=== PATIENT | female | born 1945 | race Caucasian/White ===

== ENCOUNTER 2020-04-08 11:05 | Outpatient (REF) | payer MEDICARE, SELFPAY ==
--- NOTE | 2020-04-08 11:10 | MM_ITS ---
EXAMINATION: MM SCREENING DIGITAL BREAST TOMOSYNTHESIS, BILATERAL CLINICAL INFORMATION: Screening. Asymptomatic. The lifetime risk of breast cancer based on the Tyrer-Cuzick Model is 4%. COMPARISON: Mammography: 09/20/2018, 09/13/2017, 06/24/2016 TECHNIQUE: Digital breast tomosynthesis is performed in both the craniocaudal and mediolateral oblique views along with computer-aided detection (CAD). Synthesized 2D images are generated from the tomosynthesis. FINDINGS: There are scattered areas of fibroglandular density (ACR BI-RADS breast composition Category b). There are no significant masses, abnormal calcifications, or other abnormalities. No developing density. Axillary nodes left prominent. The skin contours are smooth. MM/MM tomosynthesis screening BI IMPRESSION: No mammographic evidence of malignancy. ASSESSMENT: BI-RADS 2: Benign the RECOMMENDATION: Routine annual mammography screening. This patient's information was entered into a reminder system with a target due date for their next mammogram.
== END 2020-04-08 11:06 | disposition home or self-care (01) ==
LOC: HO.MAMMO 11:05
PROVIDERS: PCP Internal Medicine; Visit Provider Internal Medicine
DX: Z12.31 Encounter for screening mammogram for malignant neoplasm of breast (principal)
CPT/HCPCS: 77063; 77067

== ENCOUNTER 2020-05-23 09:31 | Outpatient (REF) | payer MEDICARE, SELFPAY ==
[2020-05-23 11:18] LABS: MANUAL DIFF FLAG NO
[2020-05-23 11:31] LABS: Basophils Absolute Auto 0.1 X10*3/uL (0.0-0.2); Basophils Percent Auto 0.7 % (0-2); Eosinophils Percent Auto 0.5 % (0-4); Hematocrit 41.1 % (37-47); Hemoglobin 13.8 g/dl (12.0-16.0); Imm Gran Abs Auto 0.03 X10*3/uL (0.00-0.03); Imm Gran Pct Auto 0.4 % (0.0-0.4); Lymphocytes Absolute Auto 2.5 X10*3/uL (1.2-4.9); Lymphocytes Percent Auto 32.6 % (20-40); Mean Corpuscular HGB Conc 33.6 g/dl (31.0-35.0); Mean Corpuscular Hemoglobin 30.2 pg (27.0-33.0); Mean Corpuscular Volume 89.9 fL (80-98); Mean Platelet Volume 10.5 fL (9.4-12.3); Monocytes Absolute Auto 0.6 X10*3/uL (0.1-1.2); Monocytes Percent Auto 8.3 % (2-11); Neutrophils Absolute Auto 4.4 X10*3/uL (2.0-8.3); Neutrophils Percent Auto 57.5 % (45-73); Platelet Count 276 X10*3/uL (160-400); Red Blood Count 4.57 X10*6/uL (4.20-5.50); Red Cell Distribution Width 13.1 % (11.0-16.0); White Blood Count 7.7 X10*3/uL (4.8-10.8)
[2020-05-23 12:08] LABS: Alanine Aminotransferase 13 U/L (0-31); Albumin Level 4.4 g/dL (3.5-5.0); Alkaline Phosphatase 77 U/L (39-117); Anion Gap 13 (12-20); Aspartate Amino Transferase 15 U/L (5-31); Bilirubin Total 0.6 mg/dL (0.0-1.0); Blood Urea Nitrogen 12 mg/dL (9-16); Calcium 9.3 mg/dL (8.4-10.2); Carbon Dioxide 25 mmol/L (22-29); Chloride 106 mmol/L (96-108); Estimated Glomerular Filt Rate > 60; Glucose Random 89 mg/dL (60-115); Potassium 4.3 mmol/l (3.3-5.1); Sodium 140 mmol/L (135-145); Total Protein 7.2 g/dL (6.5-8.0)
== END 2020-05-23 09:32 | disposition home or self-care (01) ==
LOC: HO.LAB 09:31
PROVIDERS: PCP Internal Medicine; Visit Provider Internal Medicine
DX: E78.2 Mixed hyperlipidemia (principal); G44.209 Tension-type headache, unspecified, not intractable; H81.12 Benign paroxysmal vertigo, left ear; M06.9 Rheumatoid arthritis, unspecified; Z68.29 Body mass index [BMI] 29.0-29.9, adult
CPT/HCPCS: 36415; 80053; 85025

== ENCOUNTER 2020-05-28 16:30 | Outpatient (REF) | payer MEDICARE, SELFPAY | END 2020-05-28 16:31 | disposition home or self-care (01) | LOC: HO.WFDLNP 16:30 | PROVIDERS: Visit Provider Internal Medicine | DX: Z20.822 Contact with and (suspected) exposure to COVID-19 (principal) | CPT/HCPCS: C9803; U0003 ==

== ENCOUNTER 2020-10-18 15:19 | Outpatient (REF) | payer MEDICARE, MEDICAID, SELFPAY ==
--- NOTE | ~2020-10-18 | XR_ITS ---
EXAMINATION: XR WRIST, RIGHT CLINICAL INFORMATION: Rheumatoid arthritis COMPARISON: 07/01/2016 TECHNIQUE: PA, lateral, and oblique views of the right wrist. FINDINGS: Again seen is severe arthritic changes with marked joint space narrowing throughout the carpus along with narrowing of the radiocarpal joint. Marked erosive changes are present in the distal ulna. When comparison is made to the 07/01/2016 study, there has been some mild progression of disease. Visualized MCP joints appear unremarkable. No fractures are seen. XR/XR wrist RT 2V IMPRESSION: Severe arthritic changes in the wrist slightly worse when compared to the 2017 consistent with rheumatoid arthritis.
== END 2020-10-18 15:20 | disposition home or self-care (01) ==
LOC: HO.XRAY 15:19
PROVIDERS: PCP Internal Medicine; Visit Provider Student in an Organized Health Care Education/Training Program
DX: M06.00 Rheumatoid arthritis without rheumatoid factor, unspecified site (principal); F17.210 Nicotine dependence, cigarettes, uncomplicated; Z79.899 Other long term (current) drug therapy
CPT/HCPCS: 73100; 99212

== ENCOUNTER 2020-10-21 12:15 | Outpatient (REF) | payer MEDICARE, MEDICAID, SELFPAY ==
[2020-10-21 13:01] LABS: MANUAL DIFF FLAG NO
[2020-10-21 13:06] LABS: Basophils Percent Auto 0.2 % (0-2); Eosinophils Percent Auto 0.4 % (0-4); Hematocrit 40.6 % (37-47); Hemoglobin 13.6 g/dl (12.0-16.0); Imm Gran Abs Auto 0.03 X10*3/uL (0.00-0.03); Imm Gran Pct Auto 0.4 % (0.0-0.4); Lymphocytes Percent Auto 23.7 % (20-40); Mean Corpuscular HGB Conc 33.5 g/dl (31.0-35.0); Mean Corpuscular Hemoglobin 30.2 pg (27.0-33.0); Mean Platelet Volume 10.7 fL (9.4-12.3); Monocytes Absolute Auto 0.6 X10*3/uL (0.1-1.2); Monocytes Percent Auto 7.5 % (2-11); Neutrophils Absolute Auto 5.7 X10*3/uL (2.0-8.3); Neutrophils Percent Auto 67.8 % (45-73); Platelet Count 253 X10*3/uL (160-400); Red Blood Count 4.51 X10*6/uL (4.20-5.50); White Blood Count 8.4 X10*3/uL (4.8-10.8)
[2020-10-21 13:40] LABS: HDL Cholesterol 55 mg/dL
[2020-10-21 13:43] LABS: Anion Gap 13 (12-20); C Reactive Protein 0.19 mg/dL (< or = 0.50); HDL Cholesterol 55 mg/dL
[2020-10-21 13:47] LABS: Erythrocyte Sedimentation Rate 2 MM/HR (0-20)
[2020-10-21 13:56] LABS: Alanine Aminotransferase 10 U/L (0-31); Albumin Level 4.5 g/dL (3.5-5.0); Alkaline Phosphatase 69 U/L (39-117); Aspartate Amino Transferase 14 U/L (5-31); Bilirubin Total 0.6 mg/dL (0.0-1.0); Blood Urea Nitrogen 11 mg/dL (9-16); Calcium 9.7 mg/dL (8.4-10.2); Carbon Dioxide 24 mmol/L (22-29); Chloride 108 mmol/L (96-108); Cholesterol 149 mg/dL; Estimated Glomerular Filt Rate > 60; Glucose Random 90 mg/dL (60-115); LDL Cholesterol Calculated 51 mg/dl; Potassium 4.2 mmol/L (3.3-5.1); Sodium 141 mmol/L (135-145); Total Protein 7.1 g/dL (6.5-8.0); Triglycerides 215 mg/dL
[2020-10-21 14:12] LABS: Reflex LDLD? No
[2020-10-22 04:01] LABS: HBS Num1 165.24 mIU/mL (0-7.99); ~Hepatitis B Surface Antibody REACTIVE (Nonreactive)
[2020-10-22 04:05] LABS: HBc Num1 0.06 S/CO (0.00-0.79); HBsAGNum1 0.17 S/CO (0.00-0.99); Hepatitis B Core Antibody Nonreactive (Nonreactive); Hepatitis B Surface Antigen Negative (Negative); ~HepC Num1 0.09 S/CO (0.00-0.79); ~Hepatitis C Antibody Nonreactive (Nonreactive)
[2020-10-23 07:28] LABS: Hepatitis A Antibody IgM 0.26 Index (0-0.79); ~Hepatitis A Antibody IgM Nonreactive (Nonreactive)
[2020-10-23 21:12] LABS: TS Negative Control Passed; TS Panel A 0; TS Panel B 0; TS Positive Control Passed; TSpotTB Negative (SeeBelow)
== END 2020-10-21 12:16 | disposition home or self-care (01) ==
LOC: HO.LAB 12:15
PROVIDERS: Absent Provider Internal Medicine; PCP Internal Medicine; Visit Provider Student in an Organized Health Care Education/Training Program
DX: M06.00 Rheumatoid arthritis without rheumatoid factor, unspecified site (principal); M94.0 Chondrocostal junction syndrome [Tietze]; E78.00 Pure hypercholesterolemia, unspecified; Z68.27 Body mass index [BMI] 27.0-27.9, adult; Z11.1 Encounter for screening for respiratory tuberculosis
CPT/HCPCS: 36415; 80053; 80061; 85025; 85652; 86140; 86481; 86704; 86706; 86709; 86803; 87340

== ENCOUNTER 2020-10-23 08:49 | Outpatient (REF) | payer MEDICARE, MEDICAID, SELFPAY | END 2020-10-23 08:50 | disposition home or self-care (01) | LOC: HO.LAB 08:49 | PROVIDERS: Visit Provider Internal Medicine | DX: Z20.822 Contact with and (suspected) exposure to COVID-19 (principal) | CPT/HCPCS: C9803; U0003; U0005 ==

== ENCOUNTER 2020-12-25 09:28 | Outpatient (REF) | payer MEDICARE, MEDICAID, SELFPAY ==
[2020-12-25 10:09] LABS: MANUAL DIFF FLAG NO
[2020-12-25 10:17] LABS: Basophils Percent Auto 0.7 % (0-2); Eosinophils Absolute Auto 0.1 X10*3/uL (0.0-0.4); Eosinophils Percent Auto 1.3 % (0-4); Hematocrit 40.7 % (37-47); Hemoglobin 13.5 g/dl (12.0-16.0); Imm Gran Abs Auto 0.02 X10*3/uL (0.00-0.03); Imm Gran Pct Auto 0.3 % (0.0-0.4); Lymphocytes Absolute Auto 2.5 X10*3/uL (1.2-4.9); Lymphocytes Percent Auto 41.4 % (20-40); Mean Corpuscular HGB Conc 33.2 g/dl (31.0-35.0); Mean Corpuscular Hemoglobin 29.7 pg (27.0-33.0); Mean Corpuscular Volume 89.6 fL (80-98); Mean Platelet Volume 10.8 fL (9.4-12.3); Monocytes Absolute Auto 0.5 X10*3/uL (0.1-1.2); Monocytes Percent Auto 7.5 % (2-11); Neutrophils Percent Auto 48.8 % (45-73); Platelet Count 251 X10*3/uL (160-400); Red Blood Count 4.54 X10*6/uL (4.20-5.50); Red Cell Distribution Width 13.1 % (11.0-16.0); White Blood Count 6.1 X10*3/uL (4.8-10.8)
[2020-12-25 11:24] LABS: Alanine Aminotransferase 15 U/L (0-31); Albumin Level 4.3 g/dL (3.5-5.0); Alkaline Phosphatase 65 U/L (39-117); Anion Gap 15 (12-20); Aspartate Amino Transferase 16 U/L (5-31); Bilirubin Total 0.6 mg/dL (0.0-1.0); Blood Urea Nitrogen 11 mg/dL (9-16); Calcium 9.3 mg/dL (8.4-10.2); Carbon Dioxide 21 mmol/L (22-29); Chloride 107 mmol/L (96-108); Cholesterol 153 mg/dL; Estimated Glomerular Filt Rate > 60; Glucose Random 113 mg/dL (60-115); HDL Cholesterol 55 mg/dL; LDL Cholesterol Calculated 73 mg/dl; Potassium 3.9 mmol/L (3.3-5.1); Sodium 139 mmol/L (135-145); Triglycerides 128 mg/dL
[2020-12-25 13:47] LABS: Reflex LDLD? No
== END 2020-12-25 09:29 | disposition home or self-care (01) ==
LOC: HO.LAB 09:28
PROVIDERS: PCP Internal Medicine; Visit Provider Student in an Organized Health Care Education/Training Program
DX: M06.00 Rheumatoid arthritis without rheumatoid factor, unspecified site (principal)
CPT/HCPCS: 36415; 80053; 80061; 85025

== ENCOUNTER 2021-01-08 10:23 | Outpatient (REF) | payer MEDICARE, MEDICAID, SELFPAY ==
[2021-01-08 12:15] LABS: C Reactive Protein 0.24 mg/dL (< or = 0.50)
[2021-01-08 13:11] LABS: Erythrocyte Sedimentation Rate 2 MM/HR (0-20)
== END 2021-01-08 10:24 | disposition home or self-care (01) ==
LOC: HO.LAB 10:23
PROVIDERS: PCP Internal Medicine; Visit Provider Nurse Practitioner Family
DX: M06.00 Rheumatoid arthritis without rheumatoid factor, unspecified site (principal)
CPT/HCPCS: 36415; 85652; 86140; 99212

== ENCOUNTER 2021-03-10 10:45 | Outpatient (REF) | payer MEDICARE, MEDICAID, SELFPAY ==
--- NOTE | ~2021-03-10 | XR_ITS ---
EXAMINATION: XR LUMBOSACRAL SPINE CLINICAL INFORMATION: Rheumatoid arthritis. COMPARISON: Lumbar spine radiographs dated 03/11/2015. TECHNIQUE: 3 views of the lumbosacral spine. FINDINGS: Normal vertebral body alignment. The lumbar lordosis is maintained. No acute fracture or subluxation. No loss of vertebral body height. Loss of intervertebral disc height with anterior endplate osteophytes throughout the lumbar spine. Bilateral facet arthropathy at L5-S1. No lytic or blastic osseous lesion. No abnormal soft tissue calcification. XR/XR lumbar spine 2-3V IMPRESSION: Mild degenerative disc disease throughout the lumbar spine, slightly progressed when compared to the prior examination. Bilateral facet arthropathy at L5-S1, progressed.
[2021-03-10 11:46] LABS: MANUAL DIFF FLAG NO
[2021-03-10 12:10] LABS: Basophils Percent Auto 0.3 % (0-2); Eosinophils Percent Auto 0.3 % (0-4); Hematocrit 38.5 % (37.0-47.0); Hemoglobin 12.9 g/dl (12.0-16.0); Imm Gran Abs Auto 0.02 X10*3/uL (0.00-0.03); Imm Gran Pct Auto 0.3 % (0.0-0.4); Lymphocytes Absolute Auto 1.9 X10*3/uL (1.2-4.9); Lymphocytes Percent Auto 30.2 % (20-40); Mean Corpuscular HGB Conc 33.5 g/dl (31.0-35.0); Mean Corpuscular Volume 89.5 fL (80.0-98.0); Mean Platelet Volume 10.6 fL (9.4-12.3); Monocytes Absolute Auto 0.7 X10*3/uL (0.1-1.2); Monocytes Percent Auto 10.3 % (2-11); Neutrophils Absolute Auto 3.76 x10*3/uL (2.0-8.3); Neutrophils Percent Auto 58.6 % (45-73); Platelet Count 232 X10*3/uL (160-400); Red Cell Distribution Width 13.2 % (11.0-16.0); White Blood Count 6.4 X10*3/uL (4.8-10.8)
[2021-03-10 12:38] LABS: Alanine Aminotransferase 12 U/L (0-31); Albumin Level 4.3 g/dL (3.5-5.0); Alkaline Phosphatase 69 U/L (39-117); Anion Gap 12 (12-20); Aspartate Amino Transferase 25 U/L (5-31); Bilirubin Total 0.7 mg/dL (0.0-1.0); Blood Urea Nitrogen 10 mg/dL (9-16); C Reactive Protein 0.79 mg/dL (< or = 0.50); Calcium 9.4 mg/dL (8.4-10.2); Carbon Dioxide 23 mmol/L (22-29); Chloride 109 mmol/L (96-108); Estimated Glomerular Filt Rate > 60; Glucose Random 93 mg/dL (60-115); Sodium 140 mmol/L (135-145); Total Protein 6.9 g/dL (6.5-8.0)
[2021-03-10 12:54] LABS: Erythrocyte Sedimentation Rate 5 MM/HR (0-20)
== END 2021-03-10 10:46 | disposition home or self-care (01) ==
LOC: HO.XRAY 10:45
PROVIDERS: PCP Internal Medicine; Visit Provider Nurse Practitioner Family
DX: M06.00 Rheumatoid arthritis without rheumatoid factor, unspecified site (principal)
CPT/HCPCS: 36415; 72100; 80053; 85025; 85652; 86140; 99212

== ENCOUNTER 2021-04-24 13:30 | Outpatient (RCR) | payer MEDICARE, MEDICAID, SELFPAY ==
--- NOTE | 2021-04-24 14:57 | MHC.OT.DC ---
[address] [phone] F: [phone] Occupational Therapy Discharge Note Provider: NIKOLAS Fontaine Diagnosis: Right hand pain due to RA Date of Evaluation: 03/26/21 Date of Discharge: 04/24/21 Treatments to Date: 4 Discharge Status: Achieved Goals Independent with HEP Discharge Summary: Hernia has been seen in OT for hand and wrist pain related to rheumatoid arthritis. She reports relief with daytime and nighttime orthosis wear, but has not been able to wear our custom resting wrist orthosis at nighttime due to ridigity, but has been educated on pre-candelario options. She still occasionally has high pain, but no significant redness or edema noted in hand or wrist, pain mostly localized to ulnar wrist. She has good follow through w/ HEP and protection, with overall improving ROM. Electronically Signed By: Kecia Candelaria OTR/L CHT Reviewed/agree with student documentation: N/A Therapist: Please Sign and return to therapist, thank you for your referral.
== END 2021-04-24 14:58 | disposition home or self-care (01) ==
LOC: HO.OT 13:30
PROVIDERS: PCP Internal Medicine; Visit Provider Nurse Practitioner Family
DX: M79.641 Pain in right hand (principal)
CPT/HCPCS: 29125; 97110; 97165; 97760

== ENCOUNTER 2021-05-01 15:23 | Outpatient (REF) | payer MEDICARE, MEDICAID, SELFPAY ==
--- NOTE | ~2021-05-01 | MM_ITS ---
EXAMINATION: MM SCREENING DIGITAL BREAST TOMOSYNTHESIS, BILATERAL CLINICAL INFORMATION: Screening. Asymptomatic. The lifetime risk of breast cancer based on the Tyrer-Cuzick Model is 3%. COMPARISON: Mammography: 04/08/2020, 09/20/2018, 09/13/2017 TECHNIQUE: Digital breast tomosynthesis is performed in both the craniocaudal and mediolateral oblique views along with computer-aided detection (CAD). Synthesized 2D images are generated from the tomosynthesis. FINDINGS: There are scattered areas of fibroglandular density (ACR BI-RADS breast composition Category b). There are no significant masses, abnormal calcifications, or other abnormalities. Parenchymal pattern is similar to prior studies. There is no developing density. The axilla and skin contours are unremarkable. MM/MM tomosynthesis screening BI IMPRESSION: No mammographic evidence of malignancy. ASSESSMENT: BI-RADS 1: Negative RECOMMENDATION: Routine annual mammography screening. This patient's information was entered into a reminder system with a target due date for their next mammogram.
== END 2021-05-01 15:24 | disposition home or self-care (01) ==
LOC: HO.MAMMO 15:23
PROVIDERS: Visit Provider Internal Medicine
DX: Z12.31 Encounter for screening mammogram for malignant neoplasm of breast (principal)
CPT/HCPCS: 77063; 77067

== ENCOUNTER 2021-05-08 12:29 | Outpatient (REF) | payer MEDICARE, MEDICAID, SELFPAY | END 2021-05-08 12:30 | disposition home or self-care (01) | LOC: HO.WFDLDS 12:29 | PROVIDERS: Visit Provider Internal Medicine | DX: Z20.822 Contact with and (suspected) exposure to COVID-19 (principal) | CPT/HCPCS: C9803; U0003; U0005 ==

== ENCOUNTER 2021-06-02 10:58 | Outpatient (REF) | payer MEDICARE, MEDICAID, SELFPAY ==
[2021-06-02 11:25] LABS: MANUAL DIFF FLAG NO
[2021-06-02 11:48] LABS: Basophils Percent Auto 0.5 % (0-2); Eosinophils Percent Auto 0.5 % (0-4); Hematocrit 42.4 % (37.0-47.0); Imm Gran Abs Auto 0.04 X10*3/uL (0.00-0.03); Imm Gran Pct Auto 0.5 % (0.0-0.4); Lymphocytes Absolute Auto 2.5 X10*3/uL (1.2-4.9); Lymphocytes Percent Auto 29.2 % (20-40); Mean Corpuscular Hemoglobin 29.8 pg (27.0-33.0); Mean Corpuscular Volume 90.2 fL (80.0-98.0); Mean Platelet Volume 10.7 fL (9.4-12.3); Monocytes Absolute Auto 0.7 X10*3/uL (0.1-1.2); Monocytes Percent Auto 8.5 % (2-11); Neutrophils Absolute Auto 5.2 x10*3/uL (2.0-8.3); Neutrophils Percent Auto 60.8 % (45-73); Platelet Count 251 X10*3/uL (160-400); Red Cell Distribution Width 12.9 % (11.0-16.0); White Blood Count 8.6 X10*3/uL (4.8-10.8)
[2021-06-02 12:24] LABS: Alanine Aminotransferase 12 U/L (0-31); Albumin Level 4.2 g/dL (3.5-5.0); Alkaline Phosphatase 74 U/L (39-117); Anion Gap 11 (12-20); Aspartate Amino Transferase 16 U/L (5-31); Bilirubin Total 0.7 mg/dL (0.0-1.0); Blood Urea Nitrogen 13 mg/dL (9-16); C Reactive Protein 0.39 mg/dL (< or = 0.50); Calcium 9.9 mg/dL (8.4-10.2); Carbon Dioxide 26 mmol/L (22-29); Chloride 106 mmol/L (96-108); Cholesterol 229 mg/dL; Estimated Glomerular Filt Rate > 60; Glucose Random 98 mg/dL (60-115); HDL Cholesterol 52 mg/dL; LDL Cholesterol Calculated 146 mg/dl; Sodium 139 mmol/L (135-145); Total Protein 7.1 g/dL (6.5-8.0); Triglycerides 159 mg/dL
[2021-06-02 12:27] LABS: Erythrocyte Sedimentation Rate 4 MM/HR (0-20); Reflex LDLD? No
== END 2021-06-02 10:59 | disposition home or self-care (01) ==
LOC: HO.LAB 10:58
PROVIDERS: Absent Provider Internal Medicine; PCP Internal Medicine; Visit Provider Nurse Practitioner Family
DX: M06.00 Rheumatoid arthritis without rheumatoid factor, unspecified site (principal)
CPT/HCPCS: 36415; 80053; 80061; 85025; 85652; 86140

== ENCOUNTER → 2021-06-10 12:22 | Outpatient (BNVA) | payer MEDICARE, MEDICAID, SELFPAY | PROVIDERS: PCP Internal Medicine; Visit Provider Nurse Practitioner Family | DX: M06.00 Rheumatoid arthritis without rheumatoid factor, unspecified site (principal) | CPT/HCPCS: 99212 ==

== ENCOUNTER 2021-08-14 13:17 | Outpatient (REF) | payer MEDICARE, MEDICAID, SELFPAY ==
[2021-08-14 13:35] LABS: MANUAL DIFF FLAG NO
[2021-08-14 13:55] LABS: Basophils Absolute Auto 0.1 X10*3/uL (0.0-0.2); Basophils Percent Auto 0.7 % (0-2); Eosinophils Percent Auto 0.3 % (0-4); Hemoglobin 13.6 g/dl (12.0-16.0); Imm Gran Abs Auto 0.03 X10*3/uL (0.00-0.03); Imm Gran Pct Auto 0.4 % (0.0-0.4); Lymphocytes Absolute Auto 2.1 X10*3/uL (1.2-4.9); Lymphocytes Percent Auto 27.2 % (20-40); Mean Corpuscular HGB Conc 33.2 g/dl (31.0-35.0); Mean Corpuscular Hemoglobin 29.8 pg (27.0-33.0); Mean Corpuscular Volume 89.7 fL (80.0-98.0); Mean Platelet Volume 10.7 fL (9.4-12.3); Monocytes Absolute Auto 0.6 X10*3/uL (0.1-1.2); Monocytes Percent Auto 7.8 % (2-11); Neutrophils Absolute Auto 4.9 x10*3/uL (2.0-8.3); Neutrophils Percent Auto 63.6 % (45-73); Platelet Count 254 X10*3/uL (160-400); Red Blood Count 4.57 X10*6/uL (4.20-5.50); Red Cell Distribution Width 13.2 % (11.0-16.0); White Blood Count 7.7 X10*3/uL (4.8-10.8)
[2021-08-14 14:09] LABS: Alanine Aminotransferase 13 U/L (0-31); Albumin Level 4.4 g/dL (3.5-5.0); Alkaline Phosphatase 70 U/L (39-117); Anion Gap 12 (12-20); Aspartate Amino Transferase 14 U/L (5-31); Bilirubin Total 0.7 mg/dL (0.0-1.0); Blood Urea Nitrogen 11 mg/dL (9-16); Calcium 9.7 mg/dL (8.4-10.2); Carbon Dioxide 24 mmol/L (22-29); Chloride 107 mmol/L (96-108); Cholesterol 142 mg/dL; Estimated Glomerular Filt Rate > 60; Glucose Random 100 mg/dL (60-115); HDL Cholesterol 55 mg/dL; LDL Cholesterol Calculated 62 mg/dl; Potassium 4.2 mmol/L (3.3-5.1); Sodium 139 mmol/L (135-145); Total Protein 7.2 g/dL (6.5-8.0); Triglycerides 129 mg/dL
[2021-08-14 14:29] LABS: Thyroid Stimulating Hormone 1.22 uIU/mL (0.32-4.0)
== END 2021-08-14 13:18 | disposition home or self-care (01) ==
LOC: HO.LAB 13:17
PROVIDERS: PCP Internal Medicine; Visit Provider Internal Medicine
DX: Z00.00 Encounter for general adult medical examination without abnormal findings (principal); F33.41 Major depressive disorder, recurrent, in partial remission; M06.9 Rheumatoid arthritis, unspecified
CPT/HCPCS: 36415; 80053; 80061; 84443; 85025

== ENCOUNTER 2021-09-25 10:19 | Outpatient (REF) | payer OTHER, SELFPAY ==
[2021-09-25 13:01] LABS: C Reactive Protein 0.42 mg/dL (< or = 0.50)
[2021-09-25 13:20] LABS: Erythrocyte Sedimentation Rate 5 MM/HR (0-20)
== END 2021-09-25 10:20 | disposition home or self-care (01) ==
LOC: HO.LAB 10:19
PROVIDERS: PCP Internal Medicine; Visit Provider Nurse Practitioner Family
DX: M06.00 Rheumatoid arthritis without rheumatoid factor, unspecified site (principal); M25.562 Pain in left knee; M54.50 Low back pain, unspecified
CPT/HCPCS: 36415; 85652; 86140; 99212

== ENCOUNTER 2021-09-26 09:54 | Outpatient (REF) | payer OTHER, SELFPAY ==
--- NOTE | ~2021-09-26 | XR_ITS ---
EXAMINATION: XR KNEE, LEFT CLINICAL INFORMATION: Left knee pain COMPARISON: None TECHNIQUE: 3 views of the left knee. FINDINGS: There is significant narrowing of medial compartment of left knee joint with marginal spurring and varus deformity of the knee. There is patellofemoral compartment spurring without joint effusion. XR/XR knee LT 3V IMPRESSION: Changes of osteoarthritis most prominent in the medial compartment of left knee joint
== END 2021-09-26 09:55 | disposition home or self-care (01) ==
LOC: HO.XRAY 09:54
PROVIDERS: PCP Internal Medicine; Visit Provider Nurse Practitioner Family
DX: M25.562 Pain in left knee (principal)
CPT/HCPCS: 73562

== ENCOUNTER 2021-10-15 09:12 | Outpatient (REF) | payer OTHER, SELFPAY ==
[2021-10-15 09:20] LABS: MANUAL DIFF FLAG NO
[2021-10-15 09:38] LABS: Basophils Percent Auto 0.4 % (0-2); Eosinophils Absolute Auto 0.1 X10*3/uL (0.0-0.4); Eosinophils Percent Auto 0.7 % (0-4); Hematocrit 40.7 % (37.0-47.0); Hemoglobin 13.3 g/dl (12.0-16.0); Imm Gran Abs Auto 0.02 X10*3/uL (0.00-0.03); Imm Gran Pct Auto 0.3 % (0.0-0.4); Lymphocytes Absolute Auto 2.2 X10*3/uL (1.2-4.9); Lymphocytes Percent Auto 31.5 % (20-40); Mean Corpuscular HGB Conc 32.7 g/dl (31.0-35.0); Mean Corpuscular Hemoglobin 29.4 pg (27.0-33.0); Mean Platelet Volume 10.1 fL (9.4-12.3); Monocytes Absolute Auto 0.7 X10*3/uL (0.1-1.2); Monocytes Percent Auto 9.6 % (2-11); Neutrophils Percent Auto 57.5 % (45-73); Platelet Count 275 X10*3/uL (160-400); Red Blood Count 4.52 X10*6/uL (4.20-5.50); Red Cell Distribution Width 13.3 % (11.0-16.0); White Blood Count 6.9 X10*3/uL (4.8-10.8)
[2021-10-15 10:16] LABS: Alanine Aminotransferase 12 U/L (0-31); Albumin Level 4.3 g/dL (3.5-5.0); Alkaline Phosphatase 78 U/L (39-117); Anion Gap 11 (12-20); Aspartate Amino Transferase 15 U/L (5-31); Bilirubin Total 0.5 mg/dL (0.0-1.0); Blood Urea Nitrogen 17 mg/dL (9-16); Calcium 9.4 mg/dL (8.4-10.2); Carbon Dioxide 27 mmol/L (22-29); Chloride 106 mmol/L (96-108); Cholesterol 178 mg/dL; Estimated Glomerular Filt Rate > 60; Glucose Random 95 mg/dL (60-115); HDL Cholesterol 56 mg/dL; LDL Cholesterol Calculated 101 mg/dl; Potassium 4.2 mmol/L (3.3-5.1); Sodium 140 mmol/L (135-145); Total Protein 7.1 g/dL (6.5-8.0); Triglycerides 105 mg/dL
== END 2021-10-15 09:13 | disposition home or self-care (01) ==
LOC: HO.LAB 09:12
PROVIDERS: PCP Internal Medicine; Visit Provider Internal Medicine
DX: E78.00 Pure hypercholesterolemia, unspecified (principal); H81.10 Benign paroxysmal vertigo, unspecified ear; K62.89 Other specified diseases of anus and rectum; M06.9 Rheumatoid arthritis, unspecified; M67.814 Other specified disorders of tendon, left shoulder
CPT/HCPCS: 36415; 80053; 80061; 85025

== ENCOUNTER → 2021-11-05 14:17 | Outpatient (BNVA) | payer OTHER, MEDICAID, SELFPAY | PROVIDERS: PCP Internal Medicine; Visit Provider Nurse Practitioner Family | DX: R10.9 Unspecified abdominal pain (principal); R19.7 Diarrhea, unspecified; E55.9 Vitamin D deficiency, unspecified | CPT/HCPCS: 99202 ==

== ENCOUNTER 2021-11-06 10:51 | Outpatient (REF) | payer OTHER, SELFPAY ==
[2021-11-06 11:58] LABS: Lipase 22 U/L (8-78)
[2021-11-06 12:43] LABS: Folate > 20.0 ng/mL (> or = 4.0); Vitamin B12 325 pg/mL (200-900)
[2021-11-08 08:27] LABS: Transglutaminase Ab IgG <1.0 U/mL; Transglutaminase IgA <1.0 U/mL
[2021-11-08 14:17] LABS: Immunoglobulin A 260 mg/dL (70-320)
[2021-11-10 16:16] LABS: Vitamin D 25-OH, D2 <4 ng/mL; Vitamin D 25-OH, D3 27 ng/mL; Vitamin D 25-OH, Total 27 ng/mL (30-100)
== END 2021-11-06 10:52 | disposition home or self-care (01) ==
LOC: HO.LAB 10:51
PROVIDERS: PCP Internal Medicine; Visit Provider Nurse Practitioner Family
DX: R10.9 Unspecified abdominal pain (principal); R19.7 Diarrhea, unspecified; E55.9 Vitamin D deficiency, unspecified
CPT/HCPCS: 36415; 82306; 82607; 82746; 82784; 83690; 86364

== ENCOUNTER 2021-11-20 10:00 | Outpatient (RCR) | payer OTHER, MEDICAID, SELFPAY ==
--- NOTE | 2021-10-27 11:47 | MHC.PT.EP ---
[facility] [place] Office [place] Office [place] Office [address] Terry Muhammad [address] [phone] F: [phone] F: [phone] F: [phone] F: [phone] Physical Therapy Plan of Care Date of Evaluation: Date of Surgery: N/A Diagnosis: rotator cuff tendinitis L shoulder, back pain (RC) Assessment: pt presents to physical therapy with pain, decreased range of motion, decreased strength, impaired functional mobility, impaired postural awareness, and gait deviations. pt is a good candidate for skilled PT due to age, potential remediation of impairments, typical disease/condition progression and prognosis, comorbidities, and motivation. pt would benefit from tailored strengthening and stretching exercise program, functional training, gait training, postural re-training, neuromuscular re-education, modalities as needed for pain, equipment safety demonstration. Frequency and Duration: The patient will be seen 2x/wk for 3 wks Short Term Goals: pt will be I w/ HEP to promote self-management of condition. pt will improve L shoulder flexion by 15 degrees to promote ease in reaching for objects on higher shelves. Wrapping Checker Goals: pt will improve L shoulder flexion and abduction strength by 1 MMT grade to promote ease in lifting arm for upper body ADLs. pt will improve L shoulder functional ER ROM to at least C4 to promote ease in washing/combing hair. Treatment Plan: Modalities to reduce pain, spasms and effusion. Manual therapy to restore motion and function. Therapeutic exercise to improve strength and flexibility. Neuromuscular re-education for posture and balance. Therapeutic activities to return to functional activities of daily living. Electronically signed by: Lucia Lemus PT, DPT Please sign and return to therapist. Thank you for your referral.
--- NOTE | 2021-11-20 10:27 | MHC.PT.DC ---
[facility] [place] Office [place] Office [place] Office [address] Terry Muhammad 140 [facility] [phone] F: [phone] F: [phone] F: [phone] F: [phone] Physical Therapy Discharge Report Diagnosis: rotator cuff tendinitis L shoulder, back pain (RC) Date of Surgery: N/A Date of Evaluation: 10/27/21 Date of Discharge: Treatments to Date: 7 Cancellations to Date: 0 No Shows to Date: 0 Discharge Status: Discharge Summary: The patient was reporting some delayed onset muscle soreness after last visit so only a stretching and ROM program was performed today with good tolerance. She overall has been reporting little to no pain or discomfort otherwise. She is independent with her home exercise program including cervical stretching, shoulder ROM, and postural strengthening. She is discharged from this physical therapy plan of care to her [facility]. Electronically signed by: Please sign and return to therapist. Thank you for your referral.
--- NOTE | 2021-11-20 10:28 | MHC.PT.DC ---
[facility] [place] Office [place] Office [place] Office [address] Terry Muhammad 140 [facility] [phone] F: [phone] F: [phone] F: [phone] F: [phone] Physical Therapy Discharge Report Diagnosis: rotator cuff tendinitis L shoulder, back pain (RC) Date of Surgery: N/A Date of Evaluation: 10/27/21 Date of Discharge: 11/20/21 Treatments to Date: 7 Cancellations to Date: 0 No Shows to Date: 0 Discharge Status: Improved Function Independent with HEP Discharge Summary: The patient was reporting some delayed onset muscle soreness after last visit so only a stretching and ROM program was performed today with good tolerance. She overall has been reporting little to no pain or discomfort otherwise. She is independent with her home exercise program including cervical stretching, shoulder ROM, and postural strengthening. She is discharged from this physical therapy plan of care to her HEP. Electronically signed by: Lucia Lemus PT, DPT Please sign and return to therapist. Thank you for your referral.
== END 2021-11-20 10:28 | disposition home or self-care (01) ==
LOC: HO.PT 10:00
PROVIDERS: PCP Internal Medicine; Visit Provider Internal Medicine
DX: M25.512 Pain in left shoulder (principal); M54.9 Dorsalgia, unspecified
CPT/HCPCS: 97110; 97150; 97161

== ENCOUNTER 2022-01-05 11:55 | Outpatient (REF) | payer OTHER, SELFPAY ==
--- NOTE | ~2022-01-05 | XR_ITS ---
EXAMINATION: XR HAND, RIGHT CLINICAL INFORMATION: Rheumatoid arthritis COMPARISON: Prior study 2017 TECHNIQUE: Frontal lateral obliques views of the hand were obtained. FINDINGS: Redemonstration of the loss of joint spaces especially involving the intercarpal, carpometacarpal and radiocarpal joints, there are subarticular and marginal erosions, this is compatible with patient history of rheumatoid arthritis, there has been progression compared with the prior exam from 2017. The metacarpophalangeal and interphalangeal joints are relatively spared. XR/XR hand wrist RT IMPRESSION: Progression of patient's known rheumatoid arthritis of primarily involving the carpal levels.
--- NOTE | ~2022-01-05 | XR_ITS ---
EXAMINATION: XR CHEST CLINICAL INFORMATION: Pneumonia COMPARISON: None TECHNIQUE: 2 views of the chest were obtained. FINDINGS: No significant abnormality is noted involving the heart, lungs, mediastinum, bony thorax or soft tissues. XR/XR chest 2V IMPRESSION: No radiographic evidence of lobar consolidation pneumonia.
--- NOTE | ~2022-01-05 | XR_ITS ---
EXAMINATION: XR HAND, LEFT CLINICAL INFORMATION: Rheumatoid arthritis COMPARISON: Prior study 2017 TECHNIQUE: Frontal lateral oblique views of the hand were obtained. FINDINGS: Redemonstration of the intercarpal, radiocarpal and carpometacarpal joint narrowing, compatible with patient history of rheumatoid arthritis, this has slightly progressed from prior exam of 2017. Metacarpophalangeal and interphalangeal joints are relatively spared. XR/XR hand wrist LT IMPRESSION: Mild progression of carpal arthritis compatible with patient history of rheumatoid.
[2022-01-05 12:41] LABS: MANUAL DIFF FLAG NO
[2022-01-05 12:47] LABS: Basophils Absolute Auto 0.1 X10*3/uL (0.0-0.2); Basophils Percent Auto 0.6 % (0-2); Eosinophils Percent Auto 0.4 % (0-4); Hemoglobin 13.9 g/dl (12.0-16.0); Imm Gran Abs Auto 0.02 X10*3/uL (0.00-0.03); Imm Gran Pct Auto 0.3 % (0.0-0.4); Lymphocytes Absolute Auto 2.5 X10*3/uL (1.2-4.9); Lymphocytes Percent Auto 31.3 % (20-40); Mean Corpuscular HGB Conc 33.1 g/dl (31.0-35.0); Mean Corpuscular Volume 87.7 fL (80.0-98.0); Mean Platelet Volume 10.3 fL (9.4-12.3); Monocytes Absolute Auto 0.7 X10*3/uL (0.1-1.2); Monocytes Percent Auto 8.8 % (2-11); Neutrophils Absolute Auto 4.6 x10*3/uL (2.0-8.3); Neutrophils Percent Auto 58.6 % (45-73); Platelet Count 255 X10*3/uL (160-400); Red Blood Count 4.79 X10*6/uL (4.20-5.50); White Blood Count 7.8 X10*3/uL (4.8-10.8)
[2022-01-05 13:21] LABS: Alanine Aminotransferase 13 U/L (0-31); Albumin Level 4.5 g/dL (3.5-5.0); Alkaline Phosphatase 75 U/L (39-117); Anion Gap 15 (12-20); Aspartate Amino Transferase 15 U/L (5-31); Bilirubin Total 0.5 mg/dL (0.0-1.0); Blood Urea Nitrogen 13 mg/dL (9-16); Calcium 9.6 mg/dL (8.4-10.2); Carbon Dioxide 25 mmol/L (22-29); Chloride 105 mmol/L (96-108); Estimated Glomerular Filt Rate > 60; Glucose Random 97 mg/dL (60-115); Potassium 4.3 mmol/L (3.3-5.1); Sodium 141 mmol/L (135-145); Total Protein 7.4 g/dL (6.5-8.0)
[2022-01-05 13:25] LABS: Erythrocyte Sedimentation Rate 3 MM/HR (0-20)
== END 2022-01-05 11:56 | disposition home or self-care (01) ==
LOC: HO.LAB 11:55
PROVIDERS: PCP Internal Medicine; Visit Provider Nurse Practitioner Family
DX: M06.00 Rheumatoid arthritis without rheumatoid factor, unspecified site (principal); R07.81 Pleurodynia; M54.50 Low back pain, unspecified; M25.562 Pain in left knee
CPT/HCPCS: 36415; 71046; 73110; 73130; 80053; 85025; 85652; 86140; 99212

== ENCOUNTER → 2022-01-07 14:50 | Outpatient (BNVA) | payer OTHER, SELFPAY | PROVIDERS: PCP Internal Medicine; Visit Provider Nurse Practitioner Family | DX: Z01.818 Encounter for other preprocedural examination (principal); R10.9 Unspecified abdominal pain | CPT/HCPCS: 99212 ==

== ENCOUNTER 2022-04-06 09:15 | Outpatient (REF) | payer OTHER, SELFPAY ==
[2022-04-06 11:16] LABS: MANUAL DIFF FLAG NO
[2022-04-06 11:36] LABS: Basophils Percent Auto 0.6 % (0-2); Eosinophils Absolute Auto 0.1 X10*3/uL (0.0-0.4); Eosinophils Percent Auto 1.1 % (0-4); Hematocrit 42.6 % (37.0-47.0); Imm Gran Abs Auto 0.03 X10*3/uL (0.00-0.03); Imm Gran Pct Auto 0.5 % (0.0-0.4); Lymphocytes Absolute Auto 2.4 X10*3/uL (1.2-4.9); Mean Corpuscular HGB Conc 32.9 g/dl (31.0-35.0); Mean Corpuscular Hemoglobin 29.4 pg (27.0-33.0); Mean Corpuscular Volume 89.5 fL (80.0-98.0); Mean Platelet Volume 10.5 fL (9.4-12.3); Monocytes Absolute Auto 0.6 X10*3/uL (0.1-1.2); Monocytes Percent Auto 8.6 % (2-11); Neutrophils Absolute Auto 3.3 x10*3/uL (2.0-8.3); Neutrophils Percent Auto 51.2 % (45-73); Platelet Count 289 X10*3/uL (160-400); Red Blood Count 4.76 X10*6/uL (4.20-5.50); Red Cell Distribution Width 13.2 % (11.0-16.0); White Blood Count 6.4 X10*3/uL (4.8-10.8)
[2022-04-06 12:23] LABS: Alanine Aminotransferase 27 U/L (0-31); Aspartate Amino Transferase 23 U/L (5-31); C Reactive Protein 0.51 mg/dL (< or = 0.50); Estimated Glomerular Filt Rate > 60
[2022-04-06 13:18] LABS: Erythrocyte Sedimentation Rate 5 MM/HR (0-20)
== END 2022-04-06 09:16 | disposition home or self-care (01) ==
LOC: HO.10HDL 09:15
PROVIDERS: Visit Provider Nurse Practitioner Family
DX: M06.00 Rheumatoid arthritis without rheumatoid factor, unspecified site (principal); M25.531 Pain in right wrist; M54.9 Dorsalgia, unspecified; M25.562 Pain in left knee; M85.80 Other specified disorders of bone density and structure, unspecified site; Z79.899 Other long term (current) drug therapy
CPT/HCPCS: 36415; 82565; 84450; 84460; 85025; 85652; 86140; 99212

== ENCOUNTER → 2022-04-13 09:30 | Outpatient (BNVA) | payer OTHER, SELFPAY | PROVIDERS: PCP Internal Medicine; Visit Provider Nurse Practitioner Family | DX: M17.12 Unilateral primary osteoarthritis, left knee (principal) | CPT/HCPCS: 20610 ==

== ENCOUNTER 2022-04-16 10:52 | Outpatient (REF) | payer OTHER, SELFPAY ==
--- NOTE | ~2022-04-16 | MM_ITS ---
EXAMINATION: BONE DENSITOMETRY CLINICAL INDICATION: Other specified disorders of bone density and structure. COMPARISON: Previous BD dated 12/10/2011 and baseline BD dated 05/14/2006. TECHNIQUE: Using a [employer] DXA System (software version: 13.1) manufactured by [employer], dual-energy x-ray absorptiometry was performed of the lumbar spine and left hip. The images are of good technical quality. Summary results are attached. FINDINGS: AP SPINE L1-L4: Current: BMD 1.113 g/cm2, Z-score 0.9, T-score -0.6, normal, 1.0% decrease from previous, 4.1% decrease from baseline (<5% change is not significant). Prior: BMD 1.124 g/cm2. Baseline: BMD 1.161 g/cm2. LEFT FEMUR, NECK: Current: BMD 0.765 g/cm2, Z-score -0.2, T-score -2.0, osteopenia. Prior: BMD 0.851 g/cm2. Baseline: BMD 0.947 g/cm2. LEFT FEMUR, TOTAL: Current: BMD 0.839 g/cm2, Z-score 0.2, T-score -1.3, osteopenia, 12.3% decrease from previous, 18.5% decrease from baseline (<5% change is not significant). Prior: BMD 0.957 g/cm2. Baseline: BMD 1.030 g/cm2. IDENTIFIED RISK FACTORS: Rheumatoid arthritis, height loss, tobacco use (current smoker), thiazide, menopause. HISTORY OF FRACTURE: None listed. MEDICATIONS: Multivitamin/calcium. MM/XR DEXA axial skeleton IMPRESSION: 1. DIAGNOSIS: Osteopenia based on the lowest T-score value of -2.0 in the femoral neck applying World Health Organization criteria. 2. 10-YEAR FRACTURE RISK PREDICTION, FRAX: Major osteoporotic fracture (clinical spine, forearm, hip or shoulder) 10.6%. Hip fracture 4.2%. 3. Treatment Recommendations: NOF guidelines recommend consideration for treatment in postmenopausal women and men age 50 and older presenting with the following: -A hip or vertebral (clinical or morphometric) fracture. -T-score less than or equal to -2.5 at the femoral neck or spine after appropriate evaluation to exclude secondary causes. -Low bone mass at the hip or spine and a 10-year fracture probability by FRAX of greater than or equal to 3% for hip fracture or greater than or equal to 20% for major osteoporotic fracture based on the [place] adapted WHO algorithm. 4. Other Recommendations: All treatment decisions require clinical judgment and consideration of individual patient factors, including patient preferences, comorbidities, previous drug use, risk factors not captured in the FRAX model (e.g. frailty, falls, vitamin D deficiency, increased bone turnover, interval significant decline in bone density) and possible under or overestimation of fracture risk by FRAX. Additional medical evaluation for secondary cause of low bone mineral density may be appropriate. FUTURE SCAN RECOMMENDATION: People with diagnosed cases of osteoporosis or at high risk for fracture should have regular bone mineral density tests. For patients eligible for Medicare, routine testing is allowed once every 2 years. The testing frequency can be increased to one year for patients who have rapidly progressing disease, those who are receiving or discontinuing medical therapy to restore bone mass, or have additional risk factors.
== END 2022-04-16 10:53 | disposition home or self-care (01) ==
LOC: HO.MAMMO 10:52
PROVIDERS: Visit Provider Nurse Practitioner Family
DX: Z13.820 Encounter for screening for osteoporosis (principal); Z78.0 Asymptomatic menopausal state; M85.80 Other specified disorders of bone density and structure, unspecified site
CPT/HCPCS: 77080

== ENCOUNTER 2022-05-19 07:57 | Day surgery (SDC) | payer OTHER, SELFPAY ==
[2022-05-15 11:38] VITALS: BMI 27.6
--- NOTE | 2022-05-18 13:38 | HO.ANESPROP2 ---
Documented by User: Renetta Rasmussen NP 05/18/22 13:39 HPI - Anesthesia Eval Consult details Narrative: 76yo F for Colonoscopy PMFSH Active Problems Active Problems: All Active Problems (Updated 04/13/22 @ 10:19 by Jodee Castillo NP) Osteoarthritis of left knee (Acute) Seronegative rheumatoid arthritis (Acute) Past Medical History Medical History (Updated 05/19/22 @ 09:19 by Adriana Patrick RN) Anxiety Denial Depression Fibrocystic breast disease History of abnormal Pap smear Hyperlipemia Microscopic hematuria Osteoarthritis Osteopenia Panic attack Rheumatoid arthritis Tension headache Family History Family History Mother Rheumatoid arthritis Father CVD (cardiovascular disease) Surgical History Surgical History (Updated 05/19/22 @ 09:20 by Adriana Patrick RN) Hx of colonoscopy Social History Social History Alcohol intake: never Patient Tobacco Use Status: Current someday Tobacco user Cigarettes Per Day: 2 Years Smoked: 30 Use of substances other than those prescribed or required for medical reasons: No Are you DNR?: No Advance Directives: No Advance Directives Information Provided: Yes Meds Allergies Allergy/AdvReac Type Severity Reaction Status Date / Time sarilumab [From Kevzara] Allergy injection Verified 05/19/22 09:26 site reaction tocilizumab [From Actemra] Allergy injection Verified 05/19/22 09:26 site reaction fruits Allergy Mild itchy Uncoded 04/13/22 09:34 mouth and throat Home Medications Medication Instructions Recorded Confirmed Last Taken Type clonazepam 0.5 mg tablet 0.5 mg PO TID 03/10/21 05/19/22 05/19/22 07:30 History multivitamin (Daily Vitamin 1 tab PO DAILY 06/10/21 05/19/22 Unknown History Formula tablet) atorvastatin 10 mg tablet 10 mg PO BEDTIME 06/11/21 05/19/22 Unknown History naproxen 500 mg tablet 500 mg PO BID 06/11/21 05/19/22 Unknown History citalopram 20 mg tablet 20 mg PO DAILY 09/25/21 05/19/22 Unknown History diclofenac sodium 75 mg 75 mg PO BID 04/06/22 05/19/22 Unknown History tablet,delayed release meclizine 12.5 mg tablet 12.5 mg PO QID PRN Dizziness 04/06/22 05/19/22 Unknown History folic acid 1 mg tablet 1 mg PO DAILY 05/19/22 05/19/22 Unknown History Exam Exam Date and Time: May 18, 2022 1338 Height,Weight and Vital Signs: Height 5 ft 3 in Weight 70.76 kg Pertinent Lab Results Pertinent Lab Results: Laboratory Tests 01/05/22 04/06/22 04/06/22 12:40 09:20 09:20 WBC 6.4 Hgb 14.0 Hct 42.6 Plt Count 289 Sodium 141 Potassium 4.3 Chloride 105 Carbon Dioxide 25 BUN 13 Creatinine 0.82 Assessment and Plan Assessment Anesthesia Assessment: Chart Reviewed Documented by User: Brittney Harris MD 05/19/22 10:29 [facility] Past Medical History Medical History (Updated 05/19/22 @ 09:19 by Adriana Patrick RN) Anxiety Denial Depression Fibrocystic breast disease History of abnormal Pap smear Hyperlipemia Microscopic hematuria Osteoarthritis Osteopenia Panic attack Rheumatoid arthritis Tension headache Family History Family History Mother Rheumatoid arthritis Father CVD (cardiovascular disease) Surgical History Surgical History (Updated 05/19/22 @ 09:20 by Adriana Patrick RN) Hx of colonoscopy History of Problems with Anesthesia: No Social History Social History Alcohol intake: never Patient Tobacco Use Status: Current someday Tobacco user Cigarettes Per Day: 2 Years Smoked: 30 Use of substances other than those prescribed or required for medical reasons: No Are you DNR?: No Advance Directives: No Advance Directives Information Provided: Yes Meds Allergies Allergy/AdvReac Type Severity Reaction Status Date / Time sarilumab [From Kevzara] Allergy injection Verified 05/19/22 09:26 site reaction tocilizumab [From Actemra] Allergy injection Verified 05/19/22 09:26 site reaction fruits Allergy Mild itchy Uncoded 04/13/22 09:34 mouth and throat Home Medications Medication Instructions Recorded Confirmed Last Taken Type clonazepam 0.5 mg tablet 0.5 mg PO TID 03/10/21 05/19/22 05/19/22 07:30 History multivitamin (Daily Vitamin 1 tab PO DAILY 06/10/21 05/19/22 Unknown History Formula tablet) atorvastatin 10 mg tablet 10 mg PO BEDTIME 06/11/21 05/19/22 Unknown History naproxen 500 mg tablet 500 mg PO BID 06/11/21 05/19/22 Unknown History citalopram 20 mg tablet 20 mg PO DAILY 09/25/21 05/19/22 Unknown History diclofenac sodium 75 mg 75 mg PO BID 04/06/22 05/19/22 Unknown History tablet,delayed release meclizine 12.5 mg tablet 12.5 mg PO QID PRN Dizziness 04/06/22 05/19/22 Unknown History folic acid 1 mg tablet 1 mg PO DAILY 05/19/22 05/19/22 Unknown History Exam Airway Mallampati Class: II TM Dist: >3cm Neck ROM: Full Loose/Missing/Broken Teeth: Yes and Lower (B = Broken; M = Missing; L = Loose; C = Cap) Heart: rrr Lungs: cta Assessment and Plan Final Anesthetic Review History of Problems with Anesthesia: No NPO: Yes ASA Class: III Final Preanesthetic Review: No Changes in Pt Med Stat, Meds/Allgs Chart Reviewed, Consent Obtained/Reviewed and Anes Risks/Benef Reviewed Patient Risk: Low Procedure Risk: Low Anesthetic Plan Anesthetic Plan: MAC: and Agree w/ Assess. and Plan Disposition: Standard PACU
[2022-05-19 09:36] VITALS: BP 141/72; PULSE 71; RESP 16; TEMP 36.6; O2SAT 98
--- NOTE | 2022-05-19 09:38 | MHC.SHP ---
Pre-Procedural Eval Section A Date of Service: 05/19/22 Section B Chief Complaint: screening Relevant Family History (Specify if Yes): No Relevant Social History: Tobacco Use Present Medications: see Short Stay Collaborative assessment Medical History: Significant History (Denial Depression Fibrocystic breast disease History of abnormal Pap smear Hyperlipemia Microscopic hematuria Osteoarthritis Osteopenia Rheumatoid arthritis Tension headache) History of Previous Operations: No relevant previous surgery Allergies: Allergies Allergy/AdvReac Type Severity Reaction Status Date / Time sarilumab [From Kevzara] Allergy injection Verified 05/19/22 09:26 site reaction tocilizumab [From Actemra] Allergy injection Verified 05/19/22 09:26 site reaction fruits Allergy Mild itchy Uncoded 04/13/22 09:34 mouth and throat Review of Systems Sugical H&P ROS: Negative: Constitution, Cardiovascular, Respiratory, Neurological, Psychiatric, Hem-Onc, Allergic/Immunologic, Gastrointestinal, Genitourinary, Musculoskeletal, Integumentary, Endocrine and Eyes/Ears/Nose/Throat Exam Surgical H&P Exam: Normal: HEENT, Normal: Heart, Normal: Lungs, Normal: Extremities, Normal: Abdomen, Normal: Skin and Normal: Neurological Plan Diagnosis/Plan: Unchanged I have reviewed the history and physical and performed a pertinent physical examination on my patient. No changes have occurred unless specified. Time Spent With Patient Time: Total time managing care of this patient today ____ minutes.
[2022-05-19] MEDS: Lactated Ringers 1,000 ML 100 ML IVCONT (09:46)
--- NOTE | 2022-05-19 10:14 | P.OP_ITS ---
Operative Note Operative Note Date of Service: 05/19/22 Narrative: Operative Information Procedure Description: Colonoscopy Indication: screening Anesthesia: MAC COLONOSCOPY Instrument: Olympus variable stiffness pediatric scope 190L Colonoscopy Monitoring: Vital signs and clinical assessment, continuous EKG monitoring, Pulse oximetry, Carbon Dioxide monitoring and blood pressure monitoring were done throughout the procedure. Colon withdrawal time was 11 minutes. Procedure: The patient was placed in the left lateral decubitis position and pre-procedure medications were administered. After a digital rectal examination of the ano-rectum, the video colonoscope was inserted into the rectum and advanced through the colon to the cecum/TI. The colonoscope was slowly withdrawn in a retrograde panoramic fashion and the colon mucosa was carefully examined including a retroflexed view of the rectum. Findings and interventions are described below. Procedure Difficulty: easy Findings: Terminal Ileum-normal Cecum:normal Ascending Colon: normal Transverse Colon -normal Descending Colon:normal Sigmoid Colon: normal Rectum: Retroflexion with medium sized internal hemorrhoids, grade I Anorectum - normal Colon preparation: [place] Bowel Preparation Scale Right colon; 2 Transverse colon: 2 Left colon; 2 (0 = Unprepared colon segment with mucosa not seen due to solid stool that cannot be cleared. 1 = Portion of mucosa of the colon segment seen, but other areas of the colon segment not well seen due to staining, residual stool and/or opaque liquid. 2 = Minor amount of residual staining, small fragments of stool and/or opaque liquid, but mucosa of colon segment seen well. 3 = Entire mucosa of colon segment seen well with no residual staining, small fragments of stool or opaque liquid) Impression and Post Procedure Diagnosis: internal hemorrhoids Plan: High fiber diet leaflet Avoid straining at stool, epsom salts and sitz bath, anusol supps or cream Repeat Colonoscopy in 10 years if health allows or earlier if clinically indicated Above findings were reviewed with the patient and relevant handouts were provided if indicated.
[2022-05-19 10:59] VITALS: BP 104/51; PULSE 57; RESP 16; TEMP 36.6; O2SAT 98
[2022-05-19 11:14] VITALS: BP 114/57; PULSE 66; RESP 16; O2SAT 97
[2022-05-19 11:30] VITALS: BP 136/70; PULSE 64; RESP 16; TEMP 36.6; O2SAT 97
== END 2022-05-19 12:18 | disposition home or self-care (01) ==
PROVIDERS: PCP Internal Medicine; Visit Provider Internal Medicine Gastroenterology
PROC: 0DJD8ZZ Inspection of Lower Intestinal Tract, Via Natural or Artificial Opening Endoscopic (ICD-10-PCS; CPT 45378; principal; 2022-05-19 10:10)
DX: Z12.11 Encounter for screening for malignant neoplasm of colon (principal); K64.0 First degree hemorrhoids; E78.5 Hyperlipidemia, unspecified; M06.9 Rheumatoid arthritis, unspecified; M85.80 Other specified disorders of bone density and structure, unspecified site; F17.210 Nicotine dependence, cigarettes, uncomplicated; Z79.899 Other long term (current) drug therapy
CPT/HCPCS: G0121

== ENCOUNTER 2022-06-02 09:58 | Outpatient (REF) | payer OTHER, SELFPAY ==
--- NOTE | ~2022-06-02 | MM_ITS ---
EXAMINATION: MM SCREENING DIGITAL BREAST TOMOSYNTHESIS, BILATERAL CLINICAL INFORMATION: Screening. Asymptomatic. The lifetime risk of breast cancer based on the Tyrer-Cuzick Model is 2.9%. COMPARISON: Mammography: May 01, 2021 and studies dating back to April 27, 2014 TECHNIQUE: Digital breast tomosynthesis is performed in both the craniocaudal and mediolateral oblique views along with computer-aided detection (CAD). Synthesized 2D images are generated from the tomosynthesis. FINDINGS: The breasts are heterogeneously dense, which may obscure small masses (ACR BI-RADS breast composition Category c). There are no significant masses, abnormal calcifications, or other abnormalities. MM/MM tomosynthesis screening BI IMPRESSION: No significant changes from prior exam. ASSESSMENT: BI-RADS 1: Negative RECOMMENDATION: Routine annual mammography screening. This patient's information was entered into a reminder system with a target due date for their next mammogram.
== END 2022-06-02 09:59 | disposition home or self-care (01) ==
LOC: HO.MAMMO 09:58
PROVIDERS: PCP Internal Medicine; Visit Provider Internal Medicine
DX: Z12.31 Encounter for screening mammogram for malignant neoplasm of breast (principal); K59.01 Slow transit constipation; Z98.890 Other specified postprocedural states
CPT/HCPCS: 77063; 77067; 99212

== ENCOUNTER → 2022-06-12 07:50 | Outpatient (BNVA) | payer OTHER, SELFPAY | PROVIDERS: PCP Internal Medicine; Visit Provider Nurse Practitioner Family | DX: M06.00 Rheumatoid arthritis without rheumatoid factor, unspecified site (principal); M17.12 Unilateral primary osteoarthritis, left knee; M85.80 Other specified disorders of bone density and structure, unspecified site; Z79.899 Other long term (current) drug therapy | CPT/HCPCS: 99212 ==

== ENCOUNTER 2022-07-08 09:30 | Outpatient (REF) | payer OTHER, SELFPAY ==
[2022-07-08 09:42] LABS: MANUAL DIFF FLAG NO
[2022-07-08 10:45] LABS: Basophils Percent Auto 0.4 % (0-2); Eosinophils Absolute Auto 0.1 X10*3/uL (0.0-0.4); Eosinophils Percent Auto 0.6 % (0-4); Hematocrit 42.3 % (37.0-47.0); Imm Gran Abs Auto 0.03 X10*3/uL (0.00-0.03); Imm Gran Pct Auto 0.4 % (0.0-0.4); Lymphocytes Absolute Auto 2.2 X10*3/uL (1.2-4.9); Mean Corpuscular HGB Conc 33.1 g/dl (31.0-35.0); Mean Corpuscular Hemoglobin 29.2 pg (27.0-33.0); Mean Corpuscular Volume 88.1 fL (80.0-98.0); Mean Platelet Volume 10.7 fL (9.4-12.3); Monocytes Absolute Auto 0.7 X10*3/uL (0.1-1.2); Monocytes Percent Auto 8.4 % (2-11); Neutrophils Absolute Auto 5.1 x10*3/uL (2.0-8.3); Neutrophils Percent Auto 63.2 % (45-73); Platelet Count 284 X10*3/uL (160-400); Red Cell Distribution Width 12.8 % (11.0-16.0)
[2022-07-08 11:22] LABS: Alanine Aminotransferase 10 U/L (0-31); Aspartate Amino Transferase 16 U/L (5-31); C Reactive Protein 0.34 mg/dL (< or = 0.50); Estimated Glomerular Filt Rate > 60
[2022-07-08 11:36] LABS: Erythrocyte Sedimentation Rate 2 MM/HR (0-20)
== END 2022-07-08 09:31 | disposition home or self-care (01) ==
LOC: HO.LAB 09:30
PROVIDERS: PCP Internal Medicine; Visit Provider Nurse Practitioner Family
DX: M06.00 Rheumatoid arthritis without rheumatoid factor, unspecified site (principal); Z79.899 Other long term (current) drug therapy
CPT/HCPCS: 36415; 82565; 84450; 84460; 85025; 85652; 86140

== ENCOUNTER → 2022-07-13 11:01 | Outpatient (BNVA) | payer OTHER, SELFPAY | PROVIDERS: PCP Internal Medicine; Visit Provider Nurse Practitioner Family | DX: M06.00 Rheumatoid arthritis without rheumatoid factor, unspecified site (principal); M85.80 Other specified disorders of bone density and structure, unspecified site; Z79.899 Other long term (current) drug therapy | CPT/HCPCS: 99212 ==

== ENCOUNTER → 2022-08-14 09:23 | Outpatient (BNVA) | payer OTHER, SELFPAY | PROVIDERS: PCP Internal Medicine; Visit Provider Nurse Practitioner Family | DX: M06.00 Rheumatoid arthritis without rheumatoid factor, unspecified site (principal); M85.80 Other specified disorders of bone density and structure, unspecified site | CPT/HCPCS: 99212 ==

== ENCOUNTER 2022-09-07 09:34 | Outpatient (REF) | payer OTHER, SELFPAY ==
[2022-09-07 09:58] LABS: MANUAL DIFF FLAG NO
[2022-09-07 10:40] LABS: Basophils Percent Auto 0.5 % (0-2); Eosinophils Percent Auto 0.3 % (0-4); Hemoglobin 13.6 g/dl (12.0-16.0); Imm Gran Abs Auto 0.03 X10*3/uL (0.00-0.03); Imm Gran Pct Auto 0.3 % (0.0-0.4); Lymphocytes Absolute Auto 2.1 X10*3/uL (1.2-4.9); Lymphocytes Percent Auto 23.7 % (20-40); Mean Corpuscular HGB Conc 33.2 g/dl (31.0-35.0); Mean Corpuscular Hemoglobin 29.3 pg (27.0-33.0); Mean Corpuscular Volume 88.4 fL (80.0-98.0); Mean Platelet Volume 10.5 fL (9.4-12.3); Monocytes Absolute Auto 0.8 X10*3/uL (0.1-1.2); Monocytes Percent Auto 8.8 % (2-11); Neutrophils Absolute Auto 5.9 x10*3/uL (2.0-8.3); Neutrophils Percent Auto 66.4 % (45-73); Platelet Count 263 X10*3/uL (160-400); Red Blood Count 4.64 X10*6/uL (4.20-5.50); Red Cell Distribution Width 13.2 % (11.0-16.0); White Blood Count 8.9 X10*3/uL (4.8-10.8)
[2022-09-07 12:45] LABS: Alanine Aminotransferase 12 U/L (0-31); Albumin Level 4.3 g/dL (3.5-5.0); Alkaline Phosphatase 84 U/L (39-117); Anion Gap 10 (12-20); Aspartate Amino Transferase 15 U/L (5-31); Bilirubin Total 0.7 mg/dL (0.0-1.0); Blood Urea Nitrogen 12 mg/dL (9-16); Calcium 9.7 mg/dL (8.4-10.2); Carbon Dioxide 27 mmol/L (22-29); Chloride 108 mmol/L (96-108); Cholesterol 158 mg/dL; Estimated Glomerular Filt Rate > 60; Glucose Random 92 mg/dL (60-115); HDL Cholesterol 57 mg/dL; LDL Cholesterol Calculated 79 mg/dl; Potassium 4.2 mmol/L (3.3-5.1); Sodium 141 mmol/L (135-145); Total Protein 6.8 g/dL (6.5-8.0); Triglycerides 114 mg/dL
[2022-09-07 13:00] LABS: Thyroid Stimulating Hormone 1.61 uIU/mL (0.32-4.0); Vitamin B12 388 pg/mL (200-900); Vitamin D 25-OH Total 29.7 ng/mL (>30)
== END 2022-09-07 09:35 | disposition home or self-care (01) ==
LOC: HO.LAB 09:34
PROVIDERS: PCP Internal Medicine; Visit Provider Internal Medicine
DX: Z00.00 Encounter for general adult medical examination without abnormal findings (principal); E78.00 Pure hypercholesterolemia, unspecified; F32.5 Major depressive disorder, single episode, in full remission; I10 Essential (primary) hypertension; R31.29 Other microscopic hematuria
CPT/HCPCS: 36415; 80053; 80061; 82306; 82607; 84443; 85025

== ENCOUNTER → 2022-09-23 10:02 | Outpatient (BNVA) | payer OTHER, SELFPAY | PROVIDERS: PCP Internal Medicine; Visit Provider Nurse Practitioner Family | DX: M06.00 Rheumatoid arthritis without rheumatoid factor, unspecified site (principal); M85.80 Other specified disorders of bone density and structure, unspecified site; Z79.899 Other long term (current) drug therapy | CPT/HCPCS: 99212 ==

== ENCOUNTER 2022-11-24 09:25 | Outpatient (AMB) | payer OTHER, SELFPAY ==
[2022-11-24 09:45] VITALS: BP 132/60; PULSE 71; BMI 28.1
--- NOTE | 2022-11-24 09:45 | MHC.OFFVIS ---
Intake Vital Signs 11/24/22 09:45 Height 5 ft 3 in Weight 158 lb 6 oz BMI 28.1 BP 132/60 Blood Pressure Location Lt brachial Position Sitting Pulse 71 Intake Visit Reasons: 6 month follow up Intake Note: Amanda mayer in office as a est.patient for a 6month f/u for constipation. PT CC: pt reports having no concerns pt denies any other GI Issues Representative Government Relations Required: Yes Representative Government Relations Language: Sammarinese Accompanied by: Self / Same As Patient Allergies alendronate sodium Allergy (Verified 11/24/22 09:47) Vomiting sarilumab [From Kevzara] Allergy (Verified 11/24/22 09:47) injection site reaction tocilizumab [From Actemra] Allergy (Verified 11/24/22 09:47) injection site reaction fruits Allergy (Mild, Uncoded 11/24/22 09:47) itchy mouth and throat HPI 6 month follow up HPI Details LAST VISIT Status post colonoscopy Normal colonoscopy. Repeat in 10 years, sooner if clinically necessary. Patient denies any ill effects from the prep, anesthesia or procedure itself. Constipation Patient reports that affect with Colace. Continue. I will see patient in 6 months, sooner on as needed basis. Patient is agreeable to this plan and verbalizes understanding of instructions. She was given the opportunity to ask questions and all questions answered. ? Thank you for allowing me to participate in her care Plan Medications New docusate sodium 100 mg PO BEDTIME 90 caps 3RF K59.00 TODAY'S VISIT: Patient is here today for follow-up. Patient states that since last time I have seen her she has been doing very well. Patient states that she changed her diet and she is moving her bowels without any issues. Patient no longer has to take Colace. Patient denies melena, hematochezia, unintentional weight loss or ribbon like stools. Patient denies any dyspepsia, dysphagia or odynophagia. Patient denies any GI concerning symptoms today and would like to follow-up with our office on as needed basis. [facility]LY [facility] Medical History Anxiety Denial Depression Fibrocystic breast disease History of abnormal Pap smear Hyperlipemia Microscopic hematuria Osteoarthritis Osteopenia Osteopenia with high risk of fracture Panic attack Rheumatoid arthritis Tension headache Surgical History Hx of colonoscopy Family History Mother Rheumatoid arthritis Father CVD (cardiovascular disease) Social History Alcohol intake: never Patient Tobacco Use Status: Current someday Tobacco user Cigarettes Per Day: 2 Years Smoked: 30 Review of Systems Const Denies weight gain and Denies weight loss ENT Reports no additional complaints, Denies dysphagia and Denies odynophagia Card Reports no additional complaints Resp Reports no additional complaints GI Denies abdominal pain, Denies belching, Denies melena, Denies bloating, Denies change in bowel habits, Denies dysphagia, Denies excessive flatus, Denies dyspepsia, Denies heartburn, Denies diarrhea, Denies loose stools, Denies nausea, Denies odynophagia and Denies vomiting Musc Reports no additional complaints Neuro Reports no additional complaints Psych Reports no additional complaints Endo Reports no additional complaints Physical Exam Vital Signs: Last Vital Signs Pulse 71 11/24/22 09:45 BP 132/60 11/24/22 09:45 BMI result Body Mass Index 28.1 Const General: healthy appearing, no acute distress and well developed Nutritional Appearance: well nourished Orientation/consciousness: patient oriented x3 HEENT Head: Yes normal to inspection, Yes normocephalic and Yes atraumatic Face and sinus: Yes normal facial exam Mouth: Normal oral and palatal mucosa present Throat: Yes posterior oropharynx normal, Yes tonsils normal and Yes uvula midline Eyes General: appearance normal, both eyes and all related structures Neck Neck: Yes normal visual inspection, Yes full ROM and Yes trachea midline Thyroid: Thyroid normal Resp Effort & Inspection: normal respiratory effort, able to speak in complete sentences, no tracheal deviation and symmetric chest movement Auscultation: clear to auscultation bilaterally Cardio Rate: regular rate Heart sounds: S1 normal heart sound present and S2 normal heart sound present GI Inspection: Yes normal to inspection and No distended Palpation (GI): Soft to palpation, not firm, nontender and No hepatosplenomegaly present Auscultation: normal bowel sounds General: Yes no CVA tenderness Back/Spine/Pelvis Back: no CVA tenderness Skin General skin exam: elasticity normal, turgor normal and dry skin Neuro General: patient oriented x3 Psych Appearance: grossly normal Mental Status: mental status grossly normal Speech and movement: Normal speech and movement present Assessment & Plan Assessment & Plan (1) Constipation: Code(s): K59.00 - Constipation, unspecified Qualifiers: Constipation type: slow transit constipation Qualified Code(s): K59.01 - Slow transit constipation Plan: Continue current diet. Patient was encouraged to increase fluid intake and activity to promote better bowel motility. Patient will follow-up with us on as needed basis. She will call us if she will have any GI concerning symptoms. Patient is agreeable to this plan and verbalizes understanding of instructions. She was given the opportunity to ask questions and all questions answered. Thank you for allowing me to participate in her care Coding Level of Care Code Est Pt Level 3 (95256) Diagnoses Constipation K59.01 Constipation type: slow transit constipation Time Spent (min) 25 Comment 15 minutes spent with patient and additional 10 minutes spent reviewing her records
== END 2022-11-24 10:18 | disposition home or self-care (01) ==
PROVIDERS: Visit Provider Nurse Practitioner Family
DX: K59.01 Slow transit constipation (principal)
CPT/HCPCS: 99213

== ENCOUNTER → 2022-11-24 09:25 | Outpatient (BNVA) | payer OTHER, SELFPAY | PROVIDERS: Visit Provider Nurse Practitioner Family | DX: K59.01 Slow transit constipation (principal) | CPT/HCPCS: 99212 ==

== ENCOUNTER 2022-12-29 07:53 | Outpatient (REF) | payer OTHER, SELFPAY ==
[2022-12-29 08:13] LABS: MANUAL DIFF FLAG NO
[2022-12-29 08:50] LABS: Basophils Absolute Auto 0.1 X10*3/uL (0.0-0.2); Basophils Percent Auto 0.7 % (0-2); Eosinophils Absolute Auto 0.2 X10*3/uL (0.0-0.4); Eosinophils Percent Auto 2.3 % (0-4); Hematocrit 41.4 % (37.0-47.0); Hemoglobin 13.6 g/dl (12.0-16.0); Imm Gran Abs Auto 0.03 X10*3/uL (0.00-0.03); Imm Gran Pct Auto 0.4 % (0.0-0.4); Lymphocytes Absolute Auto 2.4 X10*3/uL (1.2-4.9); Lymphocytes Percent Auto 32.7 % (20-40); Mean Corpuscular HGB Conc 32.9 g/dl (31.0-35.0); Mean Corpuscular Hemoglobin 29.4 pg (27.0-33.0); Mean Corpuscular Volume 89.4 fL (80.0-98.0); Mean Platelet Volume 10.3 fL (9.4-12.3); Monocytes Absolute Auto 0.6 X10*3/uL (0.1-1.2); Monocytes Percent Auto 8.5 % (2-11); Neutrophils Absolute Auto 4.1 x10*3/uL (2.0-8.3); Neutrophils Percent Auto 55.4 % (45-73); Platelet Count 286 X10*3/uL (160-400); Red Blood Count 4.63 X10*6/uL (4.20-5.50); Red Cell Distribution Width 13.1 % (11.0-16.0); White Blood Count 7.4 X10*3/uL (4.8-10.8)
[2022-12-29 09:20] LABS: Alanine Aminotransferase 17 U/L (0-31); Albumin Level 4.2 g/dL (3.5-5.0); Alkaline Phosphatase 88 U/L (39-117); Anion Gap 12 (12-20); Aspartate Amino Transferase 17 U/L (5-31); Bilirubin Total 0.6 mg/dL (0.0-1.0); Blood Urea Nitrogen 13 mg/dL (9-16); C Reactive Protein 0.83 mg/dL (< or = 0.50); Calcium 9.9 mg/dL (8.4-10.2); Carbon Dioxide 26 mmol/L (22-29); Chloride 107 mmol/L (96-108); Estimated Glomerular Filt Rate > 60; Glucose Random 102 mg/dL (60-115); Sodium 141 mmol/L (135-145); Total Protein 7.3 g/dL (6.5-8.0)
[2022-12-29 09:29] LABS: Erythrocyte Sedimentation Rate 6 MM/HR (0-20)
== END 2022-12-29 07:54 | disposition home or self-care (01) ==
LOC: HO.LAB 07:53
PROVIDERS: PCP Internal Medicine; Visit Provider Nurse Practitioner Family
DX: M06.00 Rheumatoid arthritis without rheumatoid factor, unspecified site (principal)
CPT/HCPCS: 36415; 80053; 85025; 85652; 86140

== ENCOUNTER 2022-12-30 10:28 | Outpatient (AMB) | payer OTHER, SELFPAY ==
--- NOTE | 2022-12-30 10:38 | MHC.OFFVIS ---
Intake Vital Signs 12/30/22 10:39 Height 5 ft 3 in Weight 160 lb 4.417 oz BMI 28.4 BP 130/70 Blood Pressure Location Rt brachial Position Sitting Pulse 81 Pulse Source Pulse Oximeter Temp 97.5 F Temp Source Skin Pulse Oximetry (%) 97 Intake Visit Reasons: Rheumatoid arthritis Intake Note: Pt seen today for RA follow up. Genetic Physician Required: Yes Genetic Physician Name: Cong [id number] Information Interpreted: clinical only Accompanied by: Self / Same As Patient Allergies alendronate sodium Allergy (Verified 12/30/22 10:42) Vomiting sarilumab [From Kevzara] Allergy (Verified 12/30/22 10:42) injection site reaction tocilizumab [From Actemra] Allergy (Verified 12/30/22 10:42) injection site reaction fruits Allergy (Mild, Uncoded 12/30/22 10:42) itchy mouth and throat Medication List - Last Reconciled 12/30/22 by Janessa Paris MD atorvastatin 10 mg PO BEDTIME baricitinib 2 mg PO DAILY citalopram 20 mg PO DAILY clonazepam 0.5 mg PO TID docusate sodium 100 mg PO BEDTIME famotidine (Pepcid) 40 mg PO DAILY hydroxychloroquine 200 mg PO BID meclizine 12.5 mg PO QID PRN melatonin 5 mg PO BEDTIME multivitamin (Daily Vitamin Formula tablet) 1 tab PO DAILY HPI HPI Comments History of Present Illness Details 77yoF presents for follow-up of seronegative rheumatoid arthritis and osteopenia with high frax score. Last seen by Sarita Castillo 09/2022 Patient continues to take Plaquenil 200mg po BID 6 days a week and Olumiant. Patient states that she has been taking the element only twice a week since she was started on it. She states that it gives her burning GI upset without vomiting. She states that she has chronic right wrist and hand pain and uses compression gloves consistently week. She also has left knee pain. She gets intermittent mid back pain that radiates to her neck 1 sleeping, it improves with switching position. She does not take any NSAIDs currently [facility] Medical History Anxiety Denial Depression Fibrocystic breast disease History of abnormal Pap smear Hyperlipemia Microscopic hematuria Osteoarthritis Osteopenia Osteopenia with high risk of fracture Panic attack Rheumatoid arthritis Tension headache Surgical History Hx of colonoscopy Family History Mother Rheumatoid arthritis Father CVD (cardiovascular disease) Social History Alcohol intake: never Patient Tobacco Use Status: Current someday Tobacco user Cigarettes Per Day: 2 Years Smoked: 30 Review of Systems Musc Reports back pain, Reports arthralgias, Reports joint swelling, Reports limited range of motion and Reports stiffness Physical Exam Vital Signs: Last Vital Signs Temp 97.5 F 12/30/22 10:39 Pulse 81 12/30/22 10:39 BP 130/70 12/30/22 10:39 Pulse Ox 97 12/30/22 10:39 BMI result Body Mass Index 28.4 Const General: cooperative, healthy appearing and comfortable Nutritional Appearance: overweight Orientation/consciousness: patient oriented x3 Limitations: no limitations HEENT Head: Yes normocephalic and Yes atraumatic Resp Effort & Inspection: normal respiratory effort and able to speak in complete sentences Neuro General: patient oriented x3 Extrem Other: Patient wearing compression gloves on her right hand. He has right wrist swelling and tenderness and significantly limited range of motion Left wrist swelling and tenderness Left knee pain with range of motion Assessment & Plan Assessment & Plan (1) Seronegative rheumatoid arthritis: Comment: seroneg erosive Humira: prior to 2015 Enbrel: 2016 Methotrexate: 2016 Sulfasalazine: 11/2011- 03/2018 Arava: 05/2011- 07/2018 Xeljanz: 01/2018-07/2018 Plaquenil: 06/2017 previously caused dizziness, restarted on Plaqueni - present Kevzara: 09/2017 initially did well, but caused an injection site reaction Actemra: 09/2018- initially did well, experienced injection site reactions.? Rinvoq: initially did well, stopped due to nausea, vomiting, abdominal pain Olumiant pt. preferred oral medication 01/2021- present Code(s): M06.00 - Rheumatoid arthritis without rheumatoid factor, unspecified site Plan: Is a 77-year-old female with seronegative erosive rheumatoid arthritis who presents for follow-up. Patient's RA is not well controlled. Multiple swollen and tender joints on exam Inflammatory markers are elevated. She has been taking the Olumiant only twice a week. She states that it causes burning GI upset without vomiting. Most recent hand x-rays from 2021 show progressive erosions compared to 2017. I counseled patient on the importance of good RA control has uncontrolled RA is associated with progressive arthritis, joint deformities, contractures, tendon rupture and cardiovascular events. Patient understands. Advised patient to start taking Pepcid 40 mg daily and take the Olumiant 2mg daily. If patient still cannot tolerate taking Olumiant daily, we can consider switching her to infusions such as Simponi or Actemra Labs before next visit in 2 months (2) Osteopenia with high risk of fracture: Comment: Alendronate: June 2022-took 3 doses, did not tolerate N/V. Code(s): M85.80 - Other specified disorders of bone density and structure, unspecified site Plan: DEXA 04/2022with osteopenia T-score -2.0 in the femoral neck. Major osteoporotic fracture risk 10.6%. Hip fracture risk 4.2%. Patient had refused antiresorptives in the past. Patient did not want to discuss osteoporosis medications this visit. Plan to discuss next visit (3) Long-term use of hydroxychloroquine: Code(s): Z79.899 - Other long term care pharmacist (current) drug therapy Plan: Discussed risk of retinopathy associated with hydroxychloroquine. Advised patient to follow-up regularly with Ophthalmology Plan I spent 45 minutes reviewing patient's chart, evaluating patient, ordering diagnostic workup, counseling patient and documenting in the chart Orders: Orders Comprehensive Met. Panel 2 Months M06.00 - Rheumatoid arthritis without rheumatoid factor, unspecified site C Reactive Protein 2 Months M06.00 - Rheumatoid arthritis without rheumatoid factor, unspecified site Complete Blood Count Auto Diff 2 Months M06.00 - Rheumatoid arthritis without rheumatoid factor, unspecified site Erythrocyte Sedimentation Rate 2 Months M06.00 - Rheumatoid arthritis without rheumatoid factor, unspecified site Hepatitis A,B,C Profile 2 Months Z11.59 - Encounter for screening for other viral diseases T Spot TB 2 Months Z11.7 - Encounter for testing for latent tuberculosis infection Medications: New famotidine (Pepcid) 40 mg PO DAILY 90 tabs 1RF Coding Level of Care Code Est Pt Level 5 (86627) Diagnoses Seronegative rheumatoid arthritis M06.00 Osteopenia with high risk of fracture M85.80 Long-term use of hydroxychloroquine Z79.899
[2022-12-30 10:39] VITALS: BP 130/70; PULSE 81; TEMP 36.4; O2SAT 97; BMI 28.4
== END 2022-12-30 11:14 | disposition home or self-care (01) ==
PROVIDERS: PCP Internal Medicine; Visit Provider Student in an Organized Health Care Education/Training Program
DX: M06.09 Rheumatoid arthritis without rheumatoid factor, multiple sites (principal); M85.80 Other specified disorders of bone density and structure, unspecified site; Z79.899 Other long term (current) drug therapy
CPT/HCPCS: 99215

== ENCOUNTER → 2022-12-30 10:28 | Outpatient (BNVA) | payer OTHER, SELFPAY | PROVIDERS: PCP Internal Medicine; Visit Provider Student in an Organized Health Care Education/Training Program | DX: M06.00 Rheumatoid arthritis without rheumatoid factor, unspecified site (principal); M85.80 Other specified disorders of bone density and structure, unspecified site; Z79.899 Other long term (current) drug therapy | CPT/HCPCS: 99212 ==

== ENCOUNTER 2023-01-28 10:52 | Outpatient (REF) | payer OTHER, SELFPAY ==
--- NOTE | ~2023-01-28 | XR_ITS ---
EXAMINATION: XR RIBS, BILATERAL CLINICAL INFORMATION: Chest pain. COMPARISON: Most recent chest radiograph dated 01/05/2022. TECHNIQUE: PA view the chest as well as 3 views of the right and left ribs. FINDINGS: Lungs are clear. No consolidation, pneumothorax, or pleural effusion. The cardiomediastinal silhouette and pulmonary vasculature are normal. Osseous structures are unremarkable. Ribs are intact. No fractures are identified. XR/XR ribs BI min 4V w CXR1V IMPRESSION: Unremarkable examination.
== END 2023-01-28 10:53 | disposition home or self-care (01) ==
LOC: HO.XRAY 10:52
PROVIDERS: PCP Internal Medicine; Visit Provider Student in an Organized Health Care Education/Training Program
DX: M06.00 Rheumatoid arthritis without rheumatoid factor, unspecified site (principal); M25.432 Effusion, left wrist; M25.431 Effusion, right wrist; M85.80 Other specified disorders of bone density and structure, unspecified site; R07.2 Precordial pain; N64.4 Mastodynia; Z79.899 Other long term (current) drug therapy
CPT/HCPCS: 20605; 71111; 99212

== ENCOUNTER 2023-01-28 10:52 | Outpatient (AMB) | payer OTHER, SELFPAY ==
[2023-01-28 11:21] VITALS: BP 138/72; PULSE 80; TEMP 36.3; O2SAT 96; BMI 28.7
--- NOTE | 2023-01-28 11:21 | A.OFFVIS_ITS ---
Intake Vital Signs 01/28/23 11:21 Height 5 ft 3 in Weight 162 lb 0.636 oz BMI 28.7 BP 138/72 Blood Pressure Location Rt brachial Position Sitting Pulse 80 Pulse Source Pulse Oximeter Temp 97.3 F Temp Source Skin Pulse Oximetry (%) 96 Oxygen Delivery Method Room Air Intake Visit Reasons: Swollen Left Hand Intake Note: Pt seen today for left hand pain and swelling. Reports this happened after getting stung by bee. Saw PCP Dr Read and was given prednisone, banophen and cream. Today she reports dizzines, states she took clonazepam and multivitamin this morning. Media Relations Associate Required: Yes Media Relations Associate Name: Jey [id number] Information Interpreted: clinical only Blintze Roller: Blintze Roller Present (Isiah) Accompanied by: Self / Same As Patient Allergies alendronate sodium Allergy (Verified 12/30/22 10:42) Vomiting sarilumab [From Kevzara] Allergy (Verified 12/30/22 10:42) injection site reaction tocilizumab [From Actemra] Allergy (Verified 12/30/22 10:42) injection site reaction fruits Allergy (Mild, Uncoded 12/30/22 10:42) itchy mouth and throat Medication List - Last Reconciled 01/28/23 by Janessa Paris MD atorvastatin 10 mg PO BEDTIME baricitinib 2 mg PO DAILY citalopram 20 mg PO DAILY clonazepam 0.5 mg PO TID diphenhydramine HCl (Banophen) 25 mg PO BEDTIME docusate sodium 100 mg PO BEDTIME famotidine (Pepcid) 40 mg PO DAILY hydroxychloroquine 200 mg PO BID meclizine 12.5 mg PO QID PRN melatonin 5 mg PO BEDTIME multivitamin (Daily Vitamin Formula tablet) 1 tab PO DAILY triamcinolone acetonide 0.5% appl topical HPI HPI Comments History of Present Illness Details 77yoF presents for follow-up of seronega tive rheumatoid arthritis and osteopenia with high frax score. Patient states that she has been taking Pepcid 40 mg daily but continues to have burning in her stomach when she takes Olumiant. States that last week her left upper extremity was stung by a bee and her entire left upper extremity was swollen. She was evaluated by her PCP and was prescribed prednisone, Banophen and a cream with resolution. Continues to have bilateral wrist swelling. Continues to wear wrist compression gloves in the right hand. She states that she has had left breast pain, and chest pain for almost 1 year. The pain is constant. Worse at night when she sleeps on her back. She also has similar pain in her right breast. Pain is unrelated to activity. Patient is worried about having a series condition like heart disease. She has to wear large bras in order to help the pain. [facility] Medical History Osteopenia with high risk of fracture Panic attack Anxiety Fibrocystic breast disease Tension headache Microscopic hematuria History of abnormal Pap smear Denial Osteoarthritis Hyperlipemia Osteopenia Depression Rheumatoid arthritis Surgical History Hx of colonoscopy Family History Mother Rheumatoid arthritis Father CVD (cardiovascular disease) Social History Alcohol intake: never Patient Tobacco Use Status: Current someday Tobacco user Cigarettes Per Day: 2 Years Smoked: 30 Review of Systems Card Reports chest pain Musc Reports back pain, Reports arthralgias, Reports joint swelling, Reports limited range of motion and Reports stiffness Physical Exam Vital Signs: Last Vital Signs Temp 97.3 F 01/28/23 11:21 Pulse 80 01/28/23 11:21 BP 138/72 01/28/23 11:21 Pulse Ox 96 01/28/23 11:21 Oxygen Delivery Method Room Air 01/28/23 11:21 BMI result Body Mass Index 28.7 Const General: cooperative, healthy appearing and comfortable Nutritional Appearance: overweight Orientation/consciousness: patient oriented x3 Limitations: no limitations HEENT Head: Yes normocephalic and Yes atraumatic Chest Other: Breast exam was done with ROBER Hollingsworth present Left breast tenderness particularly in the lower quadrants without obvious erythema or warmth Similar right breast tenderness but less pronounced Chest wall tenderness to palpation Resp Effort & Inspection: normal respiratory effort and able to speak in complete sentences Cardio Rate: regular rate Rhythm: regular rhythm Neuro General: patient oriented x3 Extrem Other: Patient wearing compression gloves on her right hand. He has right wrist swelling and tenderness and significantly limited range of motion Left wrist swelling and tenderness Left knee pain with range of motion Office Procedures Joint Injection/Drain Joint Injection/Drain Details: Right and left wrist Prep: site was prepped using sterile technique and ethochloride spray was applied Injected: 20 mg of and other (0.1 mL of 1% lidocaine) Procedure: The patient tolerated the procedure well and but had some pain with the injection Coding Details: The area over the dorsum of the right wrist was prepped with ChloraPrep then using a 27 gauge needle 20 mg of Kenalog mixed with 0.1 cc of 1% lidocaine was injected into the wrist joint space. The patient tolerated the procedure well with no immediate adverse events The area over the dorsum of the left wrist was prepped with ChloraPrep then using a 27 gauge needle 20 mg of Kenalog mixed with 0.1 cc of 1% lidocaine was injected into the wrist joint space. The patient tolerated the procedure well with no immediate adverse events - Medium joint Procedure code (CPT) selection complete Assessment & Plan Assessment & Plan (1) Seronegative rheumatoid arthritis: Comment: seroneg erosive Humira: prior to 2015 Enbrel: 2015 Methotrexate: 2015 Sulfasalazine: 11/2011- 03/2018 Arava: 05/2011- 07/2018 Xeljanz: 01/2018-07/2018 Plaquenil: 06/2017 previously caused dizziness, restarted on Plaqueni - present Kevzara: 09/2017 initially did well, but caused an injection site reaction Actemra: 09/2018- initially did well, experienced injection site reactions.? Rinvoq: initially did well, stopped due to nausea, vomiting, abdominal pain Olumiant pt. preferred oral medication 01/2021- present Code(s): M06.00 - Rheumatoid arthritis without rheumatoid factor, unspecified site Plan: Is a 77-year-old female with seronegative erosive rheumatoid arthritis who presents for follow-up. Patient's RA is not well controlled. Multiple swollen and tender joints on exam Inflammatory markers are elevated. She states that she gets GI burning and upset with me and despite taking Pepcid 40 mg daily.. Most recent hand x-rays from 2021 show progressive erosions compared to 2017. I counseled patient on the importance of good RA control has uncontrolled RA is associated with progressive arthritis, joint deformities, contractures, tendon rupture and cardiovascular events. Patient understands. Continue hydroxychloroquine 400 mg daily Discussed with patient switching to infusion such as Actemra, Orencia, Simponi or rituximab. Patient states that she will think about it. Patient stated that steroid injections did help her in the past. With patient's consent both wrists were injected with Kenalog today Follow-up in 1 month (2) Osteopenia with high risk of fracture: Comment: Alendronate: June 2022-took 3 doses, did not tolerate N/V. Code(s): M85.80 - Other specified disorders of bone density and structure, unspecified site Plan: DEXA 04/2022with osteopenia T-score -2.0 in the femoral neck. Major osteoporotic fracture risk 10.6%. Hip fracture risk 4.2%. Patient had refused antiresorptives in the past. Plan to discuss next visit (3) Long-term use of hydroxychloroquine: Code(s): Z79.899 - Other oysterman (current) drug therapy Plan: Discussed risk of retinopathy associated with hydroxychloroquine. Advised patient to follow-up regularly with Ophthalmology (4) Chest pain: Code(s): R07.9 - Chest pain, unspecified Qualifiers: Chest pain type: precordial pain Qualified Code(s): R07.2 - Precordial pain (5) Pain of both breasts: Code(s): N64.4 - Mastodynia Plan: Patient is having chest pain that is constant, worse when lying flat. Given uncontrolled rheumatoid arthritis there is some suspicion of pericarditis. Will check a 2D echo. She also has tenderness to palpation of both breasts. Will check bilateral breast ultrasound as well as a chest x-ray. Mammogram May of 2022 was unremarkable Plan I spent 45 minutes reviewing patient's chart, evaluating patient, ordering diagnostic workup, counseling patient and documenting in the chart Orders: Orders US breast LT complete Today N64.4 - Mastodynia CA echo transthoracic complete Today R07.9 - Chest pain, unspecified AMB Joint Injection/Aspiration Today M06.00 - Rheumatoid arthritis without rheumatoid factor, unspecified site US breast RT complete Today N64.4 - Mastodynia XR ribs BI min 4V w CXR1V Today R07.9 - Chest pain, unspecified Coding Level of Care Code Est Pt Level 4 (92647) Diagnoses Seronegative rheumatoid arthritis M06.00 Osteopenia with high risk of fracture M85.80 Long-term use of hydroxychloroquine Z79.899 Precordial pain R07.2 Chest pain type: precordial pain Pain of both breasts N64.4 CPT Codes Coding - 65430 Medium joint: 37943 - Medium joint ([id number])
== END 2023-01-28 12:10 | disposition home or self-care (01) ==
PROVIDERS: PCP Internal Medicine; Visit Provider Student in an Organized Health Care Education/Training Program
DX: M06.09 Rheumatoid arthritis without rheumatoid factor, multiple sites (principal); M85.80 Other specified disorders of bone density and structure, unspecified site; Z79.899 Other long term (current) drug therapy; R07.2 Precordial pain; N64.4 Mastodynia
CPT/HCPCS: 20605; 99214

== ENCOUNTER 2023-02-17 13:20 | Outpatient (REF) | payer OTHER, SELFPAY ==
--- NOTE | ~2023-02-17 | US_ITS ---
EXAMINATION: MM DIAGNOSTIC DIGITAL BREAST TOMOSYNTHESIS, BILATERAL US BREAST LIMITED, LEFT MAMMOGRAPHY: CLINICAL INFORMATION: Due for yearly; patient complaining of left breast pain spanning 11:00 to 3:00, and extending into left lateral rib cage. COMPARISON: Mammography: 06/02/2022, and dating back to 09/13/2017. TECHNIQUE: Digital breast tomosynthesis is performed in both the craniocaudal and mediolateral oblique views along with computer-aided detection (CAD). Synthesized 2D images are generated from the tomosynthesis. FINDINGS: There are scattered areas of fibroglandular density (ACR BI-RADS breast composition Category b). There are no suspicious masses, suspicious grouped calcifications, or areas of architectural distortion in either breast. The parenchymal pattern is stable from prior exams. No skin or axillary abnormalities. No abnormalities in the superior or lateral left breast to explain left breast pain. ULTRASOUND: CLINICAL INFORMATION: patient complaining of left breast pain spanning 11:00 to 3:00, and extending into left lateral rib cage. COMPARISON: None relative. TECHNIQUE: Targeted sonographic evaluation left breast was performed using a high frequency linear transducer. Left breast was scanned in the area of pain spanning the 11:00 to the 3:00 region. Selected archived documentation. FINDINGS: LEFT BREAST: There is a mixture of fatty and fibroglandular tissue. No suspicious mass is seen. There is no pathologic acoustic shadowing. No cystic abnormalities. No ultrasound correlate to the region of left breast pain. US/US breast LT limited mamm only IMPRESSION: No findings suspicious for malignancy in either breast. No imaging correlation on mammography or ultrasonography within the superior lateral left breast to explain breast pain. Recommend clinical management for the patient's complaint. Otherwise, recommend 1 year routine follow-up bilateral mammography. OVERALL ASSESSMENT: Mammography: BI-RADS 1 - Negative Ultrasound: BI-RADS 1 - Negative RECOMMENDATION: 1. Patient should be managed based on the clinical impression. 2. Otherwise, routine annual screening mammography. Results were provided to the patient at time of visit by the technologist. This patient's information was entered into a reminder system with a target due date for their next mammogram.
== END 2023-02-17 13:21 | disposition home or self-care (01) ==
LOC: HO.MAMMO 13:20
PROVIDERS: Visit Provider Student in an Organized Health Care Education/Training Program
DX: N64.4 Mastodynia (principal)
CPT/HCPCS: 76642; 77062; 77066

== ENCOUNTER → 2023-02-17 14:00 | Outpatient (BNV) | payer OTHER, SELFPAY | PROVIDERS: Visit Provider Radiology Diagnostic Radiology | DX: R92.323 Mammographic fibroglandular density, bilateral breasts (principal); R92.312 Mammographic fatty tissue density, left breast; R92.322 Mammographic fibroglandular density, left breast | CPT/HCPCS: 76642; 77062; 77066 ==

== ENCOUNTER → 2023-03-04 08:40 | Outpatient (REF) | payer OTHER, SELFPAY ==
--- NOTE | 2023-03-04 08:46 | CA_ITS ---
Transthoracic Echocardiogram Patient (Last, First, Middle): Amanda Damon, Gender: Female Date of : 1945 Age: 77 Procedure Date: 03/04/2023 Procedure Type: Transthoracic Echocardiogram Location: OP Height: 160.02 cm Weight: 73.48 kg BSA: 1.77 m2 Heart Rate: bpm BP: 130 / 80 mmHg Tablet Coater: TO Referring MD: Janessa Paris MD Lever Miller: Abe Corets MD Symptoms: R07.9 - Chest pain, unspecified Study Quality: Adequate ECG Rhythm: Sinus Conclusions: - 1. Normal LV ejection fraction 65-70% with impaired relaxation filling pattern 2. Mildly dilated left atrium 3. Normal cardiac valvular Dopplers 4. Normal RV systolic pressure 5. No gross pericardial effusion Findings Left Ventricle Normal left ventricular size, thickness, and systolic function. The visually estimated ejection fraction is between 65-70%. Spectral Doppler is indicative of an impaired relaxation filling pattern. E/E prime ratio is between 8 and 15 consistent with indeterminate filling pressures. There is mild septal asymmetric hypertrophy. Right Ventricle Normal right ventricular cavity size and systolic function. Atria The left atrium is mildly dilated. There is no evidence of interatrial shunt. The right atrium is normal in size. Aortic Valve Normal aortic valve structure and function. There is no aortic valve stenosis. There is no aortic valve regurgitation. Mitral Valve There is mild anterior and posterior mitral leaflet thickening. There is trace mitral valve regurgitation. There is no mitral valve stenosis. Pulmonic Valve The pulmonic valve is likely normal. Tricuspid Valve Normal tricuspid valve structure. There is trace tricuspid valve regurgitation. The right ventricular systolic pressure is normal. The right ventricular systolic pressure is 21 mmHg. Normal right atrial pressure. There is no evidence of pulmonary hypertension. Great Vessels All visible segments of the aorta are normal in size. The pulmonary artery was not well visualized. Venous The inferior vena cava is normal in size and collapses greater than 50% with inspiration. Pericardium/Pleural There is no evidence of pericardial effusion. Prior Study Comparison No significant change compared to prior study dated: 02/02/2017. Measurements 2D Linear Measurements IVSd: 1.41 0.6-0.9/0.6-1.0 cm LVIDd: 3.83 3.9-5.3/4.2-5.9 cm LVIDd Index: 2.16 2.4-3.2/2.2-3.1 cm/m2 LVIDs: 2.38 2.0-3.6 cm LVPWd: 0.83 0.7-1.1 cm LA Diam: 3.30 2.7-3.8/3.0-4.0 cm LAIDs Index: 1.86 1.5-2.3 cm/m2 LV Mass: 174.28 67-162/88-224 g LV Mass Index: 98.46 43-95/49-115 g/m2 LVOT Diam: 1.90 3.0+(-)1.3 cm 2D Systolic Function EF 4C: 67.30 >55% EF 2C: 65.80 >55% EF BiP: 66.00 >55% Mitral Valve MV Pk E: 0.68 MV PK A: 0.96 MV Decel Time: 213.00 E/A: 0.70 E'Lateral: 6.64 E'Medial: 4.13 E/E' Med: 16.40 E/E' Lat: 10.20 PHT: 62.00 MVA PHT: 3.55 Decel Throckmorton: 3.18 Aortic Valve AoV Pk Hebert: 1.55 AoV Mn Hebert: 0.92 AoV VTI: 0.31 AoV Pk Grad: 10.00 Aov Mn Grad: 4.00 MARISA Cont.VTI: 2.15 LVOT LVOT Pk Hebert: 1.02 LVOT Mn Hebert: 0.61 LVOT VTI: 0.23 LVOT Pk Grad: 4.00 LVOT Mn Grad: 2.00 LVOT Diam: 1.90 LVOT Area: 2.84 Diastolic Function MV Pk E: 0.68 MV Pk A: 0.96 E/A: 0.70 E'Medial: 4.13 E/E' Med: 16.40 E' Laterial: 6.64 E/E' Lat: 10.20 Right Ventricle TAPSE (mm): 28.10 TVS' Hebert: 10.80 Tricuspid Valve TR Pk Hebert: 2.13 TR Pk Grad: 18.00 RA Press: 3.00 RVSP: 21.00 Great Vessels Aorta Sinus of Valsalva: 3.15 2.0-3.5 cm Ao Asc: 3.20 2.1-3.4 cm Updated in Other Vendor System with Status of Final Abe Cortes MD electronically signed on 03/05/2023 8:21:02 AM with status of Final
== END ==
LOC: HO.CARD 08:40
PROVIDERS: Visit Provider Student in an Organized Health Care Education/Training Program
DX: R07.9 Chest pain, unspecified (principal)
CPT/HCPCS: 93306

== ENCOUNTER → 2023-03-04 08:46 | Outpatient (BNV) | payer OTHER, SELFPAY | PROVIDERS: Visit Provider Internal Medicine Cardiovascular Disease | DX: I34.89 Other nonrheumatic mitral valve disorders (principal) | CPT/HCPCS: 93306 ==

== ENCOUNTER 2023-03-12 08:15 | Outpatient (AMB) | payer OTHER, SELFPAY ==
--- NOTE | 2023-03-12 08:18 | MHC.OFFVIS ---
Intake Vital Signs 03/12/23 08:19 Height 5 ft 3 in Weight 160 lb 11.472 oz BMI 28.5 BP 124/70 Blood Pressure Location Rt brachial Position Sitting Pulse 76 Pulse Source Pulse Oximeter Temp 97.2 F Temp Source Skin Pulse Oximetry (%) 98 Intake Visit Reasons: RA Intake Note: Pt presents today for follow up and test results ECHO done 03/04. Pt reports citalopram dose was increased she has been nervous and anxious about this visit and all the work up [employer] Make Up Helper Required: No Accompanied by: Daughter Allergies alendronate sodium Allergy (Verified 03/12/23 08:28) Vomiting sarilumab [From Kevzara] Allergy (Verified 03/12/23 08:28) injection site reaction tocilizumab [From Actemra] Allergy (Verified 03/12/23 08:28) injection site reaction fruits Allergy (Mild, Uncoded 03/12/23 08:28) itchy mouth and throat Medication List - Last Reconciled 03/12/23 by Janessa Paris MD atorvastatin 10 mg PO BEDTIME baricitinib 2 mg PO DAILY citalopram 30 mg PO DAILY clonazepam 0.5 mg PO TID diphenhydramine HCl (Banophen) 25 mg PO BEDTIME docusate sodium 100 mg PO BEDTIME famotidine (Pepcid) 40 mg PO DAILY hydroxychloroquine 200 mg PO BID meclizine 12.5 mg PO QID PRN melatonin 5 mg PO BEDTIME multivitamin (Daily Vitamin Formula tablet) 1 tab PO DAILY triamcinolone acetonide 0.5% appl topical HPI HPI Comments History of Present Illness Details 77yoF presents for follow-up of seronegative rheumatoid arthritis returns for follow-up. She is here with her daughter Today patient states that she feels very well. She is compliant with Olumiant daily. Gets some stomach upset with it but she is able to take it. Denies any joint pain or swelling. Believes that the injection significantly helped her hands and wrist. Her left knee pain has resolved I reassured patient that all her workup for chest and breast pain was unremarkable. [facility], [facility] Medical History Osteopenia with high risk of fracture Panic attack Anxiety Fibrocystic breast disease Tension headache Microscopic hematuria History of abnormal Pap smear Denial Osteoarthritis Hyperlipemia Osteopenia Depression Rheumatoid arthritis Surgical History Hx of colonoscopy Family History Mother Rheumatoid arthritis Father CVD (cardiovascular disease) Social History Alcohol intake: never Patient Tobacco Use Status: Current someday Tobacco user Cigarettes Per Day: 2 Years Smoked: 30 Review of Systems Musc Denies arthralgias, Denies joint swelling, Denies limited range of motion and Denies stiffness Physical Exam Vital Signs: Last Vital Signs Temp 97.2 F 03/12/23 08:19 Pulse 76 03/12/23 08:19 BP 124/70 03/12/23 08:19 Pulse Ox 98 03/12/23 08:19 BMI result Body Mass Index 28.5 Const General: cooperative, healthy appearing and comfortable Nutritional Appearance: overweight Orientation/consciousness: patient oriented x3 Limitations: no limitations HEENT Head: Yes normocephalic and Yes atraumatic Resp Effort & Inspection: normal respiratory effort and able to speak in complete sentences Cardio Rate: regular rate Rhythm: regular rhythm Neuro General: patient oriented x3 Extrem Other: Today, Patient is not wearing compression gloves. No active synovitis today. Normal range of motion of hands, wrists, fingers, knees Assessment & Plan Assessment & Plan (1) Seronegative rheumatoid arthritis: Comment: seroneg erosive Humira: prior to 2015 Enbrel: 2016 Methotrexate: 2016 Sulfasalazine: 11/2011- 03/2018 Arava: 05/2011- 07/2018 Xeljanz: 01/2018-07/2018 Plaquenil: 06/2017 previously caused dizziness, restarted on Plaqueni - present Kevzara: 09/2017 initially did well, but caused an injection site reaction Actemra: 09/2018- initially did well, experienced injection site reactions.? Rinvoq: initially did well, stopped due to nausea, vomiting, abdominal pain Olumiant pt. preferred oral medication 01/2021- present effective when taking it Code(s): M06.00 - Rheumatoid arthritis without rheumatoid factor, unspecified site Plan: This Is a 77-year-old female with seronegative erosive rheumatoid arthritis who presents for follow-up. Today patient is compliant with Olumiant 2 mg daily. There is no active synovitis today. Bilateral wrist injection done last visit was effective Continue Olumiant 2 mg daily. Reinforced compliance Continue hydroxychloroquine 400 mg daily Labs before next visit in 2 months (2) Osteopenia with high risk of fracture: Comment: Alendronate: June 2022-took 3 doses, did not tolerate N/V. Code(s): M85.80 - Other specified disorders of bone density and structure, unspecified site Plan: DEXA 04/2022with osteopenia T-score -2.0 in the femoral neck. Major osteoporotic fracture risk 10.6%. Hip fracture risk 4.2%. Patient had refused antiresorptives in the past. I was just able to get patient to be compliant with olumiant, I would prefer not to add any other medicines this visit. Will discuss next visit (3) Long-term use of hydroxychloroquine: Code(s): Z79.899 - Other intermission coordinator (current) drug therapy Plan: Discussed risk of retinopathy associated with hydroxychloroquine. Advised patient to follow-up regularly with Ophthalmology (4) Chest pain: Code(s): R07.9 - Chest pain, unspecified Qualifiers: Chest pain type: precordial pain Qualified Code(s): R07.2 - Precordial pain (5) Pain of both breasts: Code(s): N64.4 - Mastodynia Plan: Patient is having chest pain that is constant, worse when lying flat. Mammogram, ultrasound, 2D echo, chest and rib x-rays were all unremarkable. Patient reassured Plan I spent 25 minutes reviewing patient's chart, evaluating patient, ordering diagnostic workup, counseling patient and documenting in the chart Orders: Orders Comprehensive Met. Panel 2 Months M06.00 - Rheumatoid arthritis without rheumatoid factor, unspecified site Erythrocyte Sedimentation Rate 2 Months M06.00 - Rheumatoid arthritis without rheumatoid factor, unspecified site Hepatitis A,B,C Profile 2 Months Z11.59 - Encounter for screening for other viral diseases Complete Blood Count Auto Diff 2 Months M06.00 - Rheumatoid arthritis without rheumatoid factor, unspecified site C Reactive Protein 2 Months M06.00 - Rheumatoid arthritis without rheumatoid factor, unspecified site T Spot TB 2 Months Z11.7 - Encounter for testing for latent tuberculosis infection Coding Level of Care Code Est Pt Level 4 (82036) Diagnoses Seronegative rheumatoid arthritis M06.00 Osteopenia with high risk of fracture M85.80 Long-term use of hydroxychloroquine Z79.899 Precordial pain R07.2 Chest pain type: precordial pain Pain of both breasts N64.4
[2023-03-12 08:19] VITALS: BP 124/70; PULSE 76; TEMP 36.2; O2SAT 98; BMI 28.5
== END 2023-03-12 08:45 | disposition home or self-care (01) ==
PROVIDERS: PCP Internal Medicine; Visit Provider Student in an Organized Health Care Education/Training Program
DX: M06.00 Rheumatoid arthritis without rheumatoid factor, unspecified site (principal); M85.80 Other specified disorders of bone density and structure, unspecified site; Z79.899 Other long term (current) drug therapy; R07.2 Precordial pain; N64.4 Mastodynia
CPT/HCPCS: 99214

== ENCOUNTER → 2023-03-12 08:15 | Outpatient (BNVA) | payer OTHER, SELFPAY | PROVIDERS: Visit Provider Student in an Organized Health Care Education/Training Program | DX: M06.00 Rheumatoid arthritis without rheumatoid factor, unspecified site (principal); M85.80 Other specified disorders of bone density and structure, unspecified site; N64.4 Mastodynia; R07.2 Precordial pain; Z79.899 Other long term (current) drug therapy | CPT/HCPCS: 99212 ==

== ENCOUNTER 2023-05-13 10:30 | Outpatient (REF) | payer OTHER, SELFPAY | END 2023-05-13 10:31 | disposition home or self-care (01) | LOC: HO.LAB 10:30 | PROVIDERS: PCP Internal Medicine; Visit Provider Student in an Organized Health Care Education/Training Program | DX: R06.00 Dyspnea, unspecified (principal); Z11.59 Encounter for screening for other viral diseases; Z11.7 Encounter for testing for latent tuberculosis infection | CPT/HCPCS: 36415; 80053; 85025; 85652; 86140; 86481; 86704; 86706; 86709; 86803; 87340 ==

== ENCOUNTER 2023-05-19 10:53 | Outpatient (AMB) | payer OTHER, SELFPAY ==
[2023-05-19 10:59] VITALS: BP 116/74; PULSE 91; TEMP 35.9; O2SAT 96; BMI 28.6
--- NOTE | 2023-05-19 10:59 | A.OFFVIS_ITS ---
Intake Vital Signs 05/19/23 10:59 Height 5 ft 3 in Weight 161 lb 9.581 oz BMI 28.6 BP 116/74 Blood Pressure Location Rt brachial Position Sitting Pulse 91 Pulse Source Pulse Oximeter Temp 96.7 F L Temp Source Skin Pulse Oximetry (%) 96 Oxygen Delivery Method Room Air Intake Visit Reasons: RA Intake Note: Pt last seen 03/12/23, presents today for follow up and test results. Denies recent surgery or hospitalizations. Reports recent vertigo flare had to see PCP and was given meclizine. Research Quality Assurance Specialist Required: Yes Research Quality Assurance Specialist Name: Robbie Nino [id number] Information Interpreted: clinical only Accompanied by: Self / Same As Patient Allergies alendronate sodium Allergy (Verified 05/19/23 11:03) Vomiting sarilumab [From Kevzara] Allergy (Verified 05/19/23 11:03) injection site reaction tocilizumab [From Actemra] Allergy (Verified 05/19/23 11:03) injection site reaction fruits Allergy (Mild, Uncoded 05/19/23 11:03) itchy mouth and throat Medication List - Last Reconciled 05/19/23 by Janessa Paris MD atorvastatin 10 mg PO BEDTIME baricitinib 2 mg PO DAILY citalopram 40 mg PO DAILY clonazepam 0.5 mg PO TID diphenhydramine HCl (Banophen) 25 mg PO BEDTIME docusate sodium 100 mg PO BEDTIME famotidine (Pepcid) 40 mg PO DAILY hydroxychloroquine 200 mg PO BID meclizine 12.5 mg PO QID PRN melatonin 5 mg PO BEDTIME multivitamin (Daily Vitamin Formula tablet) 1 tab PO DAILY triamcinolone acetonide 0.5% appl topical HPI HPI Comments History of Present Illness Details 77yoF presents for follow-up of seronega tive rheumatoid arthritis returns for follow-up. Today patient states that she feels very well. She is compliant with Olumiant daily. Gets some stomach upset with it but she is able to take it. Denies any joint pain or swelling. She recently saw her PCP for vertigo and was started on meclizine [facility] Medical History Osteopenia with high risk of fracture Panic attack Anxiety Fibrocystic breast disease Tension headache Microscopic hematuria History of abnormal Pap smear Denial Osteoarthritis Hyperlipemia Osteopenia Depression Rheumatoid arthritis Surgical History Hx of colonoscopy Family History Mother Rheumatoid arthritis Father CVD (cardiovascular disease) Social History Alcohol intake: never Patient Tobacco Use Status: Current someday Tobacco user Cigarettes Per Day: 2 Years Smoked: 30 Review of Systems ENT Reports vertigo Musc Denies arthralgias, Denies joint swelling, Denies limited range of motion and Denies stiffness Neuro Reports vertigo Physical Exam Vital Signs: Last Vital Signs Temp 96.7 F L 05/19/23 10:59 Pulse 91 05/19/23 10:59 BP 116/74 05/19/23 10:59 Pulse Ox 96 05/19/23 10:59 Oxygen Delivery Method Room Air 05/19/23 10:59 BMI result Body Mass Index 28.6 Const General: cooperative, healthy appearing and comfortable Nutritional Appearance: overweight Orientation/consciousness: patient oriented x3 Limitations: no limitations HEENT Head: Yes normocephalic and Yes atraumatic Resp Effort & Inspection: normal respiratory effort and able to speak in complete sentences Auscultation: clear to auscultation bilaterally Cardio Rate: regular rate Rhythm: regular rhythm Neuro General: patient oriented x3 Extrem Other: No active synovitis today. Normal range of motion of hands, wrists, fingers, knees Muscle strength 5/5 proximally all 4 extremities Assessment & Plan Assessment & Plan (1) Seronegative rheumatoid arthritis: Comment: seroneg erosive Humira: prior to 2016 Enbrel: 2016 Methotrexate: 2016 Sulfasalazine: 11/2011- 03/2018 Arava: 05/2011- 07/2018 Xeljanz: 01/2018-07/2018 Plaquenil: 06/2017 previously caused dizziness, restarted on Plaqueni - present Kevzara: 09/2017 initially did well, but caused an injection site reaction Actemra: 09/2018- initially did well, experienced injection site reactions.? Rinvoq: initially did well, stopped due to nausea, vomiting, abdominal pain Olumiant pt. preferred oral medication 01/2021- present effective when taking it Code(s): M06.00 - Rheumatoid arthritis without rheumatoid factor, unspecified site Plan: This Is a 77-year-old female with seronegative erosive rheumatoid arthritis who presents for follow-up. Today patient is compliant with Olumiant 2 mg daily. There is no active synovitis today. Continue Olumiant 2 mg daily. Reinforced compliance Continue hydroxychloroquine 400 mg daily Labs before next visit in 3 months (2) Osteopenia with high risk of fracture: Comment: Alendronate: June 2022-took 3 doses, did not tolerate N/V. Code(s): M85.80 - Other specified disorders of bone density and structure, unspecified site Plan: DEXA 04/2022with osteopenia T-score -2.0 in the femoral neck. Major osteoporotic fracture risk 10.6%. Hip fracture risk 4.2%. Patient took alendronate in 2022, for 3 doses and could not tolerate it due to GI upset, nausea and vomiting Today we had a long conversation about osteoporosis and her fracture risk. Discussed risks and benefits of Reclast. Patient agreed to proceed. Will start prior authorization for Reclast (3) Long-term use of hydroxychloroquine: Code(s): Z79.899 - Other manager long term care (current) drug therapy Plan: Discussed risk of retinopathy associated with hydroxychloroquine. Advised patient to follow-up regularly with Ophthalmology. She states that she has an appointment in October Plan I spent 35 minutes reviewing patient's chart, evaluating patient, ordering diagnostic workup, counseling patient and documenting in the chart Coding Level of Care Code Est Pt Level 4 (30576) Diagnoses Seronegative rheumatoid arthritis M06.00 Osteopenia with high risk of fracture M85.80 Long-term use of hydroxychloroquine Z79.899
== END 2023-05-19 11:42 | disposition home or self-care (01) ==
LOC: HO.RHE 10:53
PROVIDERS: PCP Internal Medicine; Visit Provider Student in an Organized Health Care Education/Training Program
DX: M06.00 Rheumatoid arthritis without rheumatoid factor, unspecified site (principal); M85.80 Other specified disorders of bone density and structure, unspecified site; Z79.899 Other long term (current) drug therapy
CPT/HCPCS: 99214

== ENCOUNTER → 2023-05-19 10:53 | Outpatient (BNVA) | payer OTHER, SELFPAY | PROVIDERS: PCP Internal Medicine; Visit Provider Student in an Organized Health Care Education/Training Program | DX: M06.00 Rheumatoid arthritis without rheumatoid factor, unspecified site (principal); M85.80 Other specified disorders of bone density and structure, unspecified site; Z79.899 Other long term (current) drug therapy | CPT/HCPCS: 99212 ==

== ENCOUNTER 2023-06-03 10:42 | Outpatient (REF) | payer OTHER, SELFPAY ==
[2023-06-03 12:07] LABS: Blood Urea Nitrogen 13 mg/dL (9-16); Estimated Glomerular Filt Rate > 60
== END 2023-06-03 10:43 | disposition home or self-care (01) ==
LOC: HO.MDS 10:42
PROVIDERS: Visit Provider Student in an Organized Health Care Education/Training Program
DX: M81.0 Age-related osteoporosis without current pathological fracture (principal)
CPT/HCPCS: 36415; 82565; 84520; 96365; J3489

== ENCOUNTER 2023-06-28 12:03 | Outpatient (REF) | payer OTHER, SELFPAY ==
[2023-06-28 12:22] LABS: MANUAL DIFF FLAG NO
[2023-06-28 12:31] LABS: Basophils Absolute Auto 0.1 X10*3/uL (0.0-0.2); Basophils Percent Auto 0.6 % (0-2); Eosinophils Percent Auto 0.4 % (0-4); Hematocrit 41.8 % (37.0-47.0); Hemoglobin 13.9 g/dl (12.0-16.0); Imm Gran Abs Auto 0.04 X10*3/uL (0.00-0.03); Imm Gran Pct Auto 0.4 % (0.0-0.4); Lymphocytes Absolute Auto 2.2 X10*3/uL (1.2-4.9); Lymphocytes Percent Auto 24.7 % (20-40); Mean Corpuscular HGB Conc 33.3 g/dl (31.0-35.0); Mean Corpuscular Hemoglobin 29.6 pg (27.0-33.0); Mean Corpuscular Volume 89.1 fL (80.0-98.0); Mean Platelet Volume 9.9 fL (9.4-12.3); Monocytes Absolute Auto 0.7 X10*3/uL (0.1-1.2); Monocytes Percent Auto 8.2 % (2-11); Neutrophils Absolute Auto 5.9 x10*3/uL (2.0-8.3); Neutrophils Percent Auto 65.7 % (45-73); Platelet Count 273 X10*3/uL (160-400); Red Blood Count 4.69 X10*6/uL (4.20-5.50); Red Cell Distribution Width 13.3 % (11.0-16.0)
[2023-06-28 13:33] LABS: Alanine Aminotransferase 12 U/L (0-31); Albumin Level 4.3 g/dL (3.5-5.0); Alkaline Phosphatase 86 U/L (39-117); Anion Gap 12 (12-20); Aspartate Amino Transferase 15 U/L (5-31); Bilirubin Total 0.5 mg/dL (0.0-1.0); Blood Urea Nitrogen 14 mg/dL (9-16); Calcium 9.3 mg/dL (8.4-10.2); Carbon Dioxide 25 mmol/L (22-29); Chloride 105 mmol/L (96-108); Cholesterol 174 mg/dL (<200); Estimated Glomerular Filt Rate > 60; Glucose Random 95 mg/dL (60-115); HDL Cholesterol 60 mg/dL (>40); LDL Cholesterol Calculated 87 mg/dL (<100); Potassium 4.4 mmol/L (3.3-5.1); Sodium 138 mmol/L (135-145); Total Protein 7.4 g/dL (6.5-8.0); Triglycerides 135 mg/dL (<150)
[2023-06-28 13:48] LABS: Thyroid Stimulating Hormone 1.53 uIU/mL (0.32-4.0)
[2023-06-30 19:38] LABS: TS Negative Control Passed; TS Panel A 0; TS Panel B 1; TS Positive Control Passed; TSpotTB Negative (Negative)
== END 2023-06-28 12:04 | disposition home or self-care (01) ==
LOC: HO.LAB 12:03
PROVIDERS: Visit Provider Internal Medicine
DX: E78.2 Mixed hyperlipidemia (principal); R53.83 Other fatigue; Z11.1 Encounter for screening for respiratory tuberculosis
CPT/HCPCS: 36415; 80053; 80061; 84443; 85025; 86481

== ENCOUNTER 2023-07-02 10:44 | Outpatient (REF) | payer OTHER, SELFPAY ==
--- NOTE | ~2023-07-02 | MR_ITS ---
EXAMINATION: MR BRAIN WITHOUT AND WITH CONTRAST CLINICAL INFORMATION: Vertigo, dizziness COMPARISON: None available. TECHNIQUE: Multiplanar, multisequence MRI of the brain was obtained before and after the intravenous administration of 7.5 mL Gadavist. FINDINGS: Ventricles, sulci and cisterns are dilated. Multiple T2 hyperintense nonenhancing focal lesions are seen in bilateral frontal and parietal subcortical and deep white matter. The largest lesions are seen in the right parietal deep white matter. No focal brainstem or cerebellar lesions with abnormal signal can be seen. Diffusion weighted images show no abnormal regional decrease in diffusion. Post contrast images show no enhancing cerebral, brainstem or cerebellar lesions. No abnormal meningeal enhancement is seen. Within the limitation of resolution, bilateral 7th and 8th nerve complexes are normal and symmetrical. No enhancing or space-occupying mass lesion could be seen in bilateral internal auditory meati. The pituitary gland is normal. Optic chiasm is not displaced. Cerebellar tonsils position is normal. Mild mucosal thickening is seen in bilateral ethmoid and right maxillary sinuses. MR/MR head/brain wo/w con IMPRESSION: 1. 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 2. No acute cerebral infarction is seen. 3. No evidence of space occupying or enhancing intracranial mass lesion could be found. 4. No evidence of intracranial hemorrhage.
[2023-07-02] MEDS: gadobutroL 7.5 ML VIAL IVPUSH (11:28)
== END 2023-07-02 10:45 | disposition home or self-care (01) ==
LOC: HO.MRI 10:44
PROVIDERS: PCP Internal Medicine; Visit Provider Internal Medicine
DX: H81.09 Meniere's disease, unspecified ear (principal)
CPT/HCPCS: 70553; A9585

== ENCOUNTER 2023-08-16 09:32 | Outpatient (REF) | payer OTHER, SELFPAY ==
[2023-08-16 10:33] LABS: Basophils Percent Auto 0.6 % (0-2); Eosinophils Absolute Auto 0.1 X10*3/uL (0.0-0.4); Eosinophils Percent Auto 0.9 % (0-4); Imm Gran Abs Auto 0.02 X10*3/uL (0.00-0.03); Imm Gran Pct Auto 0.3 % (0.0-0.4); Lymphocytes Absolute Auto 1.9 X10*3/uL (1.2-4.9); MANUAL DIFF FLAG SCAN; Mean Corpuscular HGB Conc 33.3 g/dl (31.0-35.0); Mean Corpuscular Hemoglobin 29.8 pg (27.0-33.0); Mean Corpuscular Volume 89.4 fL (80.0-98.0); Monocytes Absolute Auto 0.5 X10*3/uL (0.1-1.2); Monocytes Percent Auto 7.6 % (2-11); Neutrophils Percent Auto 61.6 % (45-73); PLT CLUMP 1; Red Cell Distribution Width 13.3 % (11.0-16.0); SCAN SMEAR FLAG 1
[2023-08-16 11:14] LABS: Alanine Aminotransferase 12 U/L (0-31); Albumin Level 4.3 g/dL (3.5-5.0); Alkaline Phosphatase 56 U/L (39-117); Anion Gap 12 (12-20); Aspartate Amino Transferase 15 U/L (5-31); Bilirubin Total 0.7 mg/dL (0.0-1.0); Blood Urea Nitrogen 14 mg/dL (9-16); C Reactive Protein 0.33 mg/dL (< or = 0.50); Carbon Dioxide 24 mmol/L (22-29); Chloride 108 mmol/L (96-108); Estimated Glomerular Filt Rate > 60; Glucose Random 143 mg/dL (60-115); Sodium 140 mmol/L (135-145); Total Protein 7.1 g/dL (6.5-8.0)
[2023-08-16 11:23] LABS: SLIDE REVIEW VERIFIED; White Blood Count 6.6 X10*3/uL (4.8-10.8)
[2023-08-16 11:26] LABS: Erythrocyte Sedimentation Rate 4 MM/HR (0-20)
[2023-08-20 15:24] LABS: Vitamin D 25-OH, D2 <4 ng/mL; Vitamin D 25-OH, D3 21 ng/mL; Vitamin D 25-OH, Total 21 ng/mL (30-100)
== END 2023-08-16 09:33 | disposition home or self-care (01) ==
LOC: HO.LAB 09:32
PROVIDERS: PCP Student in an Organized Health Care Education/Training Program; Visit Provider Student in an Organized Health Care Education/Training Program
DX: M06.00 Rheumatoid arthritis without rheumatoid factor, unspecified site (principal); Z13.21 Encounter for screening for nutritional disorder
CPT/HCPCS: 36415; 80053; 82306; 85025; 85652; 86140

== ENCOUNTER 2023-09-02 09:49 | Outpatient (AMB) | payer OTHER, SELFPAY ==
--- NOTE | 2023-09-02 09:51 | MHC.OFFVIS ---
Vital Signs 09/02/23 09:54 Height 5 ft 3 in Weight 158 lb 8.198 oz BMI 28.1 BP 112/70 Blood Pressure Location Rt brachial Position Sitting Pulse 71 Pulse Source Pulse Oximeter Pulse Oximetry (%) 97 Oxygen Delivery Method Room Air Intake Visit Reasons: RA Intake Note: Pt last seen in May presents today for 3mo follow up. Sales And Service Technician Required: No Sales And Service Technician Name: YOCASTA Stanford Information Interpreted: clinical only Accompanied by: Self / Same As Patient Allergies alendronate sodium Allergy (Verified 09/02/23 09:57) Vomiting sarilumab [From Kevzara] Allergy (Verified 09/02/23 09:57) injection site reaction tocilizumab [From Actemra] Allergy (Verified 09/02/23 09:57) injection site reaction fruits Allergy (Mild, Uncoded 09/02/23 09:57) itchy mouth and throat Medication List - Last Reconciled 09/02/23 by Janessa Paris MD atorvastatin 10 mg PO BEDTIME baricitinib 2 mg PO DAILY citalopram 40 mg PO DAILY clonazepam 0.5 mg PO TID diphenhydramine HCl (Banophen) 25 mg PO BEDTIME docusate sodium 100 mg PO BEDTIME famotidine 40 mg PO DAILY hydroxychloroquine 200 mg PO BID meclizine 12.5 mg PO QID PRN melatonin 5 mg PO BEDTIME multivitamin (Daily Vitamin Formula tablet) 1 tab PO DAILY triamcinolone acetonide 0.5% appl topical HPI Comments Details: 78yoF presents for follow-up of seronegative rheumatoid arthritis She is on Olumiant 2 mg daily and hydroxychloroquine 400 mg daily. Doing fairly well overall. Gets intermittent lower back pain with certain movements and intermittent left knee pain with activity. States that she saw her eye doctor 2 months ago. [facility] Medical History Osteopenia with high risk of fracture Panic attack Anxiety Fibrocystic breast disease Tension headache Microscopic hematuria History of abnormal Pap smear Denial Osteoarthritis Hyperlipemia Osteopenia Depression Rheumatoid arthritis Surgical History Hx of colonoscopy Family History Mother Rheumatoid arthritis Father CVD (cardiovascular disease) Social History Alcohol intake: never Patient Tobacco Use Status: Current someday Tobacco user Cigarettes Per Day: 2 Years Smoked: 30 Review of Systems [facility] [place] back pain, Denies arthralgias, Denies joint swelling, Denies limited range of motion and Denies stiffness Physical Exam Vital Signs: Last Vital Signs Pulse 71 09/02/23 09:54 BP 112/70 09/02/23 09:54 Pulse Ox 97 09/02/23 09:54 Oxygen Delivery Method Room Air 09/02/23 09:54 BMI result Body Mass Index 28.1 Const General: cooperative, healthy appearing and comfortable Nutritional Appearance: overweight Orientation/consciousness: patient oriented x3 Limitations: no limitations HEENT Head: Yes normocephalic and Yes atraumatic Resp Effort & Inspection: normal respiratory effort and able to speak in complete sentences Auscultation: clear to auscultation bilaterally Cardio Rate: regular rate Rhythm: regular rhythm Neuro General: patient oriented x3 Extrem Other: No active synovitis today. Normal range of motion of hands, wrists, fingers, knees Assessment & Plan Assessment & Plan (1) Seronegative rheumatoid arthritis: Comment: seroneg erosive Humira: prior to 2015 Enbrel: 2016 Methotrexate: 2016 Sulfasalazine: 11/2011- 03/2018 Arava: 05/2011- 07/2018 Xeljanz: 01/2018-07/2018 Plaquenil: 06/2017 previously caused dizziness, restarted on Plaqueni - present Kevzara: 09/2017 initially did well, but caused an injection site reaction Actemra: 09/2018- initially did well, experienced injection site reactions.? Rinvoq: initially did well, stopped due to nausea, vomiting, abdominal pain Olumiant pt. preferred oral medication 01/2021- present effective when taking it Code(s): M06.00 - Rheumatoid arthritis without rheumatoid factor, unspecified site Category: Medical Plan: This Is a 78-year-old female with seronegative erosive rheumatoid arthritis who presents for follow-up. She is on autoimmune 2 mg daily and hydroxychloroquine 400 mg daily. Doing quite well with no active synovitis Continue Olumiant 2 mg daily. Reinforced compliance Continue hydroxychloroquine 400 mg daily Labs before next visit in 3 months (2) Osteopenia with high risk of fracture: Comment: Alendronate: June 2022-took 3 doses, did not tolerate N/V. Reclast 05/2023 uneventful Code(s): M85.80 - Other specified disorders of bone density and structure, unspecified site Category: Medical Plan: DEXA 04/2022with osteopenia T-score -2.0 in the femoral neck. Major osteoporotic fracture risk 10.6%. Hip fracture risk 4.2%. Patient took alendronate in 2022, for 3 doses and could not tolerate it due to GI upset, nausea and vomiting Patient received her 1st Reclast dose 05/2023 uneventful. Next Reclast dosed 05/2024 Vitamin-D level low. Prescribed vitamin-D. Check vitamin-D before next visit (3) Long-term use of hydroxychloroquine: Code(s): Z79.899 - Other terminal operator (current) drug therapy Category: Medical Plan: Discussed risk of retinopathy associated with hydroxychloroquine. Advised patient to follow-up regularly with Ophthalmology. She stated that she saw her eye doctor 2 months ago. She does not know their name. I do not have any records. Advised patient to call our office once she gets home and give us their name so we can request records Plan I spent 35 minutes reviewing patient's chart, evaluating patient, ordering diagnostic workup, counseling patient and documenting in the chart Orders: Orders Complete Blood Count Auto Diff 3 Months M06.00 - Rheumatoid arthritis without rheumatoid factor, unspecified site, M85.80 - Other specified disorders of bone density and structure, unspecified site Comprehensive Met. Panel 3 Months M06.00 - Rheumatoid arthritis without rheumatoid factor, unspecified site, M85.80 - Other specified disorders of bone density and structure, unspecified site C Reactive Protein 3 Months M06.00 - Rheumatoid arthritis without rheumatoid factor, unspecified site, M85.80 - Other specified disorders of bone density and structure, unspecified site Erythrocyte Sedimentation Rate 3 Months M06.00 - Rheumatoid arthritis without rheumatoid factor, unspecified site, M85.80 - Other specified disorders of bone density and structure, unspecified site Vitamin D 25-OH (D2 and D3) 3 Months E55.9 - Vitamin D deficiency, unspecified Medications: New cholecalciferol (vitamin D3) 25 mcg PO BID 180 tabs 1RF Coding Level of Care Code Est Pt Level 4 (76103) Complex EM visit Add On G2211 Diagnoses Seronegative rheumatoid arthritis M06.00 Osteopenia with high risk of fracture M85.80 Long-term use of hydroxychloroquine Z79.899
[2023-09-02 09:54] VITALS: BP 112/70; PULSE 71; O2SAT 97; BMI 28.1
== END 2023-09-02 10:13 | disposition home or self-care (01) ==
LOC: HO.RHE 09:49
PROVIDERS: PCP Student in an Organized Health Care Education/Training Program; Visit Provider Student in an Organized Health Care Education/Training Program
DX: M06.00 Rheumatoid arthritis without rheumatoid factor, unspecified site (principal); M85.80 Other specified disorders of bone density and structure, unspecified site; Z79.899 Other long term (current) drug therapy
CPT/HCPCS: 99214; G2211

== ENCOUNTER → 2023-09-02 09:49 | Outpatient (BNVA) | payer OTHER, SELFPAY | PROVIDERS: PCP Student in an Organized Health Care Education/Training Program; Visit Provider Student in an Organized Health Care Education/Training Program | DX: M06.00 Rheumatoid arthritis without rheumatoid factor, unspecified site (principal); M85.80 Other specified disorders of bone density and structure, unspecified site; E55.9 Vitamin D deficiency, unspecified; Z79.899 Other long term (current) drug therapy | CPT/HCPCS: 99212 ==

== ENCOUNTER 2023-10-19 08:55 | Outpatient (REF) | payer OTHER, SELFPAY | END 2023-10-19 08:56 | disposition home or self-care (01) | LOC: HO.MAMMO 08:55 | PROVIDERS: PCP Internal Medicine; Visit Provider Internal Medicine | DX: Z12.31 Encounter for screening mammogram for malignant neoplasm of breast (principal) | CPT/HCPCS: 77063; 77067 ==

== ENCOUNTER → 2023-10-19 09:15 | Outpatient (BNV) | payer OTHER, SELFPAY | PROVIDERS: PCP Internal Medicine; Visit Provider Radiology Diagnostic Radiology | DX: Z12.31 Encounter for screening mammogram for malignant neoplasm of breast (principal) | CPT/HCPCS: 77063; 77067 ==

== ENCOUNTER 2023-11-30 08:28 | Outpatient (REF) | payer OTHER, SELFPAY ==
[2023-11-30 08:47] LABS: MANUAL DIFF FLAG NO
[2023-11-30 09:26] LABS: Basophils Absolute Auto 0.1 X10*3/uL (0.0-0.2); Basophils Percent Auto 0.9 % (0-2); Eosinophils Absolute Auto 0.1 X10*3/uL (0.0-0.4); Eosinophils Percent Auto 1.1 % (0-4); Hematocrit 40.4 % (37.0-47.0); Hemoglobin 13.4 g/dl (12.0-16.0); Imm Gran Abs Auto 0.03 X10*3/uL (0.00-0.03); Imm Gran Pct Auto 0.5 % (0.0-0.4); Lymphocytes Absolute Auto 2.3 X10*3/uL (1.2-4.9); Lymphocytes Percent Auto 41.8 % (20-40); Mean Corpuscular HGB Conc 33.2 g/dl (31.0-35.0); Mean Corpuscular Hemoglobin 29.8 pg (27.0-33.0); Mean Platelet Volume 10.3 fL (9.4-12.3); Monocytes Absolute Auto 0.5 X10*3/uL (0.1-1.2); Monocytes Percent Auto 8.9 % (2-11); Neutrophils Absolute Auto 2.6 x10*3/uL (2.0-8.3); Neutrophils Percent Auto 46.8 % (45-73); Platelet Count 244 X10*3/uL (160-400); Red Blood Count 4.49 X10*6/uL (4.20-5.50); Red Cell Distribution Width 13.5 % (11.0-16.0); White Blood Count 5.5 X10*3/uL (4.8-10.8)
[2023-11-30 09:57] LABS: Alanine Aminotransferase 12 U/L (0-31); Albumin Level 4.4 g/dL (3.5-5.0); Alkaline Phosphatase 57 U/L (39-117); Anion Gap 11 (12-20); Aspartate Amino Transferase 17 U/L (5-31); Bilirubin Total 0.6 mg/dL (0.0-1.0); Blood Urea Nitrogen 13 mg/dL (9-16); C Reactive Protein 0.18 mg/dL (< or = 0.50); Calcium 9.2 mg/dL (8.4-10.2); Carbon Dioxide 25 mmol/L (22-29); Chloride 107 mmol/L (96-108); Estimated Glomerular Filt Rate > 60; Glucose Random 89 mg/dL (60-115); Potassium 3.8 mmol/L (3.3-5.1); Sodium 139 mmol/L (135-145)
[2023-11-30 11:39] LABS: Erythrocyte Sedimentation Rate 2 MM/HR (0-20)
[2023-12-05 16:13] LABS: Vitamin D 25-OH, D2 <4 ng/mL; Vitamin D 25-OH, D3 26 ng/mL; Vitamin D 25-OH, Total 26 ng/mL (30-100)
== END 2023-11-30 08:29 | disposition home or self-care (01) ==
LOC: HO.LAB 08:28
PROVIDERS: PCP Internal Medicine; Visit Provider Student in an Organized Health Care Education/Training Program
DX: M06.00 Rheumatoid arthritis without rheumatoid factor, unspecified site (principal); M85.80 Other specified disorders of bone density and structure, unspecified site; E55.9 Vitamin D deficiency, unspecified
CPT/HCPCS: 36415; 80053; 82306; 85025; 85652; 86140

== ENCOUNTER 2023-12-02 10:08 | Outpatient (AMB) | payer OTHER, SELFPAY ==
--- NOTE | 2023-12-02 10:14 | MHC.OFFVIS ---
Vital Signs 12/02/23 10:19 Height 5 ft 3 in Weight 159 lb 2.78 oz BMI 28.2 BP 122/70 Blood Pressure Location Rt brachial Position Sitting Pulse 63 Pulse Source Pulse Oximeter Pulse Oximetry (%) 98 Oxygen Delivery Method Room Air Intake Visit Reasons: RA Intake Note: Patient presents for RA. Processing Analyst Required: Yes Processing Analyst Services: Processing Analyst Present Processing Analyst Name: Scooby [id number] Allergies alendronate sodium Allergy (Verified 12/02/23 10:18) Vomiting sarilumab [From Kevzara] Allergy (Verified 12/02/23 10:18) injection site reaction tocilizumab [From Actemra] Allergy (Verified 12/02/23 10:18) injection site reaction fruits Allergy (Mild, Uncoded 09/02/23 09:57) itchy mouth and throat Medication List - Last Reconciled 12/02/23 by Janessa Paris MD atorvastatin 10 mg PO BEDTIME cholecalciferol (vitamin D3) 25 mcg PO BID citalopram 40 mg PO DAILY clonazepam 0.5 mg PO TID diphenhydramine HCl (Banophen) 25 mg PO BEDTIME docusate sodium 100 mg PO BEDTIME famotidine 40 mg PO DAILY hydroxychloroquine 200 mg PO BID meclizine 12.5 mg PO QID PRN melatonin 5 mg PO BEDTIME multivitamin (Daily Vitamin Formula tablet) 1 tab PO DAILY Olumiant (baricitinib) 2 mg PO DAILY NS triamcinolone acetonide 0.5% appl topical HPI Comments Details: 78yoF presents for follow-up of seronegative rheumatoid arthritis She is on Olumiant 2 mg daily and hydroxychloroquine 400 mg daily. Doing fairly well overall. Gets intermittent nonradiating lower back pain with certain movements. Over the last few weeks she has been having right shoulder pain and stiffness, pain with range of motion. Denies any significant trauma or overuse [facility] Medical History Osteopenia with high risk of fracture Panic attack Anxiety Fibrocystic breast disease Tension headache Microscopic hematuria History of abnormal Pap smear Denial Osteoarthritis Hyperlipemia Osteopenia Depression Rheumatoid arthritis Surgical History Hx of colonoscopy Family History Mother Rheumatoid arthritis Father CVD (cardiovascular disease) Social History Alcohol intake: never Patient Tobacco Use Status: Current someday Tobacco user Cigarettes Per Day: 2 Years Smoked: 30 Review of Systems [facility] [place] pain, Reports arthralgias, Denies joint swelling, Denies limited range of motion and Reports stiffness Physical Exam Vital Signs: Last Vital Signs Pulse 63 12/02/23 10:19 BP 122/70 12/02/23 10:19 Pulse Ox 98 12/02/23 10:19 Oxygen Delivery Method Room Air 12/02/23 10:19 BMI result Body Mass Index 28.2 Const General: cooperative, healthy appearing and comfortable Nutritional Appearance: overweight Orientation/consciousness: patient oriented x3 Limitations: no limitations HEENT Head: Yes normocephalic and Yes atraumatic Resp Effort & Inspection: normal respiratory effort and able to speak in complete sentences Auscultation: clear to auscultation bilaterally Cardio Rate: regular rate Rhythm: regular rhythm Neuro General: patient oriented x3 Extrem Other: No active synovitis today. Limited right shoulder abduction with positive empty can test Normal range of motion of hands, wrists, fingers, knees Assessment & Plan Assessment & Plan (1) Seronegative rheumatoid arthritis: Comment: seroneg erosive Humira: prior to 2015 Enbrel: 2016 Methotrexate: 2016 Sulfasalazine: 11/2011- 03/2018 Arava: 05/2011- 07/2018 Xeljanz: 01/2018-07/2018 Plaquenil: 06/2017 previously caused dizziness, restarted on Plaqueni - present Kevzara: 09/2017 initially did well, but caused an injection site reaction Actemra: 09/2018- initially did well, experienced injection site reactions.? Rinvoq: initially did well, stopped due to nausea, vomiting, abdominal pain Olumiant pt. preferred oral medication 01/2021- present effective when taking it Code(s): M06.00 - Rheumatoid arthritis without rheumatoid factor, unspecified site Category: Medical Plan: This Is a 78-year-old female with seronegative erosive rheumatoid arthritis who presents for follow-up. She is on Olimiant 2 mg daily and hydroxychloroquine 400 mg daily. Doing quite well with no active synovitis Continue Olumiant 2 mg daily. Reinforced compliance Continue hydroxychloroquine 400 mg daily Labs before next visit in 4 months (2) Osteopenia with high risk of fracture: Comment: Alendronate: June 2022-took 3 doses, did not tolerate N/V. Reclast 05/2023 uneventful Code(s): M85.80 - Other specified disorders of bone density and structure, unspecified site Category: Medical Plan: DEXA 04/2022with osteopenia T-score -2.0 in the femoral neck. Major osteoporotic fracture risk 10.6%. Hip fracture risk 4.2%. Patient took alendronate in 2022, for 3 doses and could not tolerate it due to GI upset, nausea and vomiting Patient received her 1st Reclast dose 05/2023 uneventful. 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 Advised patient to follow-up regularly with Ophthalmology. We will request records from Dr. Claros (4) Tendinopathy of right rotator cuff: Code(s): M67.911 - Unspecified disorder of synovium and tendon, right shoulder Category: Medical Plan: Referred to PT (5) Lumbar degenerative disc disease: Code(s): M51.36 - Other intervertebral disc degeneration, lumbar region Category: Medical Plan: Referred to PT Plan I spent 35 minutes reviewing patient's chart, evaluating patient, ordering diagnostic workup, counseling patient and documenting in the chart Orders: Orders PT Evaluation and Treatment Today M51.36 - Other intervertebral disc degeneration, lumbar region, M67.911 - Unspecified disorder of synovium and tendon, right shoulder Complete Blood Count Auto Diff 4 Months M06.00 - Rheumatoid arthritis without rheumatoid factor, unspecified site, Z79.899 - Other intermediate school teacher (current) drug therapy Comprehensive Met. Panel 4 Months M06.00 - Rheumatoid arthritis without rheumatoid factor, unspecified site, Z79.899 - Other snf (current) drug therapy C Reactive Protein 4 Months M06.00 - Rheumatoid arthritis without rheumatoid factor, unspecified site, Z79.899 - Other snf (current) drug therapy Erythrocyte Sedimentation Rate 4 Months M06.00 - Rheumatoid arthritis without rheumatoid factor, unspecified site, Z79.899 - Other snf (current) drug therapy Coding Level of Care Code Est Pt Level 5 (87048) Diagnoses Seronegative rheumatoid arthritis M06.00 Osteopenia with high risk of fracture M85.80 Long-term use of hydroxychloroquine Z79.899 Tendinopathy of right rotator cuff M67.911 Lumbar degenerative disc disease M51.36
[2023-12-02 10:19] VITALS: BP 122/70; PULSE 63; O2SAT 98; BMI 28.2
== END 2023-12-02 10:34 | disposition home or self-care (01) ==
PROVIDERS: PCP Student in an Organized Health Care Education/Training Program; Visit Provider Student in an Organized Health Care Education/Training Program
DX: M06.00 Rheumatoid arthritis without rheumatoid factor, unspecified site (principal); M85.80 Other specified disorders of bone density and structure, unspecified site; Z79.899 Other long term (current) drug therapy; M67.911 Unspecified disorder of synovium and tendon, right shoulder; M51.36 Other intervertebral disc degeneration, lumbar region
CPT/HCPCS: 99214

== ENCOUNTER → 2023-12-02 10:08 | Outpatient (BNVA) | payer OTHER, SELFPAY | PROVIDERS: PCP Student in an Organized Health Care Education/Training Program; Visit Provider Student in an Organized Health Care Education/Training Program | DX: M06.00 Rheumatoid arthritis without rheumatoid factor, unspecified site (principal); M85.80 Other specified disorders of bone density and structure, unspecified site; M67.911 Unspecified disorder of synovium and tendon, right shoulder; M51.36 Other intervertebral disc degeneration, lumbar region; Z79.899 Other long term (current) drug therapy | CPT/HCPCS: 99212 ==

== ENCOUNTER 2024-02-10 08:43 | Outpatient (REF) | payer OTHER, SELFPAY ==
[2024-02-10 09:01] LABS: MANUAL DIFF FLAG NO
[2024-02-10 09:11] LABS: Basophils Percent Auto 0.6 % (0-2); Eosinophils Absolute Auto 0.1 X10*3/uL (0.0-0.4); Eosinophils Percent Auto 1.1 % (0-4); Hematocrit 42.2 % (37.0-47.0); Hemoglobin 14.4 g/dl (12.0-16.0); Imm Gran Abs Auto 0.02 X10*3/uL (0.00-0.03); Imm Gran Pct Auto 0.3 % (0.0-0.4); Lymphocytes Absolute Auto 2.5 X10*3/uL (1.2-4.9); Lymphocytes Percent Auto 38.7 % (20-40); Mean Corpuscular HGB Conc 34.1 g/dl (31.0-35.0); Mean Corpuscular Hemoglobin 30.4 pg (27.0-33.0); Mean Corpuscular Volume 89.2 fL (80.0-98.0); Mean Platelet Volume 9.9 fL (9.4-12.3); Monocytes Absolute Auto 0.6 X10*3/uL (0.1-1.2); Monocytes Percent Auto 9.1 % (2-11); Neutrophils Absolute Auto 3.3 x10*3/uL (2.0-8.3); Neutrophils Percent Auto 50.2 % (45-73); Platelet Count 237 X10*3/uL (160-400); Red Blood Count 4.73 X10*6/uL (4.20-5.50); Red Cell Distribution Width 13.1 % (11.0-16.0); White Blood Count 6.6 X10*3/uL (4.8-10.8)
[2024-02-10 09:43] LABS: Alanine Aminotransferase 14 U/L (0-31); Albumin Level 4.4 g/dL (3.5-5.0); Alkaline Phosphatase 56 U/L (39-117); Anion Gap 12 (12-20); Aspartate Amino Transferase 16 U/L (5-31); Bilirubin Total 0.5 mg/dL (0.0-1.0); Blood Urea Nitrogen 9 mg/dL (9-16); Calcium 9.7 mg/dL (8.4-10.2); Carbon Dioxide 25 mmol/L (22-29); Chloride 108 mmol/L (96-108); Cholesterol 165 mg/dL (<200); Estimated Glomerular Filt Rate > 60; Glucose Random 97 mg/dL (60-115); HDL Cholesterol 57 mg/dL (>40); LDL Cholesterol Calculated 76 mg/dL (<100); Potassium 3.8 mmol/L (3.3-5.1); Sodium 141 mmol/L (135-145); Total Protein 7.2 g/dL (6.5-8.0); Triglycerides 162 mg/dL (<150)
[2024-02-10 10:13] LABS: Folate 15.7 ng/mL (> or = 4.0); Vitamin B12 409 pg/mL (200-900)
== END 2024-02-10 08:44 | disposition home or self-care (01) ==
LOC: HO.LAB 08:43
PROVIDERS: Absent Provider Student in an Organized Health Care Education/Training Program; PCP Internal Medicine; Visit Provider Internal Medicine
DX: G47.19 Other hypersomnia (principal); H81.12 Benign paroxysmal vertigo, left ear; M06.9 Rheumatoid arthritis, unspecified; M62.81 Muscle weakness (generalized)
CPT/HCPCS: 36415; 80053; 80061; 82607; 82746; 85025

== ENCOUNTER 2024-03-17 09:43 | Outpatient (AMB) | payer OTHER, SELFPAY ==
--- NOTE | 2024-03-17 10:04 | MHC.OFFVIS ---
Vital Signs 03/17/24 10:07 Height 5 ft 3 in Weight 162 lb 11.218 oz BMI 28.8 BP 130/72 Blood Pressure Location Rt brachial Position Sitting Pulse 70 Pulse Source Pulse Oximeter Pulse Oximetry (%) 98 Oxygen Delivery Method Room Air Intake Visit Reasons: RA/lm Intake Note: Patient presents for RA. Crusher Machine Operator Required: Yes Crusher Machine Operator Language: Food Service Steward Services: Crusher Machine Operator Present Crusher Machine Operator Name: Elis #[id number] Information Interpreted: non-clinical & clinical Allergies alendronate sodium Allergy (Verified 03/17/24 10:07) Vomiting sarilumab [From Kevzara] Allergy (Verified 03/17/24 10:07) injection site reaction tocilizumab [From Actemra] Allergy (Verified 03/17/24 10:07) injection site reaction fruits Allergy (Mild, Uncoded 09/02/23 09:57) itchy mouth and throat Medication List - Last Reconciled 03/17/24 by Janessa Paris MD atorvastatin 10 mg PO BEDTIME cholecalciferol (vitamin D3) 25 mcg PO BID citalopram 40 mg PO DAILY clonazepam 0.5 mg PO TID diphenhydramine HCl (Banophen) 25 mg PO BEDTIME docusate sodium 100 mg PO BEDTIME famotidine 40 mg PO DAILY hydroxychloroquine 200 mg PO DAILY meclizine 12.5 mg PO QID PRN melatonin 5 mg PO BEDTIME multivitamin (Daily Vitamin Formula tablet) 1 tab PO DAILY Olumiant (baricitinib) 2 mg PO DAILY NS triamcinolone acetonide 0.5% appl topical HPI Comments Details: 78yoF presents for follow-up of seronegative rheumatoid arthritis She is on Olumiant 2 mg daily and hydroxychloroquine 400 mg daily. Doing very well overall. Has no complaints today [facility] Medical History Osteopenia with high risk of fracture Panic attack Anxiety Fibrocystic breast disease Tension headache Microscopic hematuria History of abnormal Pap smear Denial Osteoarthritis Hyperlipemia Osteopenia Depression Rheumatoid arthritis Surgical History Hx of colonoscopy Family History Mother Rheumatoid arthritis Father CVD (cardiovascular disease) Social History Alcohol intake: never Patient Tobacco Use Status: Current someday Tobacco user Cigarettes Per Day: 2 Years Smoked: 30 Review of Systems [place] Denies arthralgias, Denies joint swelling and Denies stiffness Physical Exam Vital Signs: Last Vital Signs Pulse 70 03/17/24 10:07 BP 130/72 03/17/24 10:07 Pulse Ox 98 03/17/24 10:07 Oxygen Delivery Method Room Air 03/17/24 10:07 BMI result Body Mass Index 28.8 Const General: cooperative, healthy appearing and comfortable Nutritional Appearance: overweight Orientation/consciousness: patient oriented x3 Limitations: no limitations HEENT Head: Yes normocephalic and Yes atraumatic Resp Effort & Inspection: normal respiratory effort and able to speak in complete sentences Auscultation: clear to auscultation bilaterally Cardio Rate: regular rate Rhythm: regular rhythm Neuro General: patient oriented x3 Extrem Other: No active synovitis today. Limited range of motion of right wrist, reduced flexion and extension (chronic) Assessment & Plan Assessment & Plan (1) Seronegative rheumatoid arthritis: Comment: seroneg erosive Humira: prior to 2015 Enbrel: 2016 Methotrexate: 2016 Sulfasalazine: 11/2011- 03/2018 Arava: 05/2011- 07/2018 Xeljanz: 01/2018-07/2018 Plaquenil: 06/2017 previously caused dizziness, restarted on Plaqueni - present Kevzara: 09/2017 initially did well, but caused an injection site reaction Actemra: 09/2018- initially did well, experienced injection site reactions.? Rinvoq: initially did well, stopped due to nausea, vomiting, abdominal pain Olumiant pt. preferred oral medication 01/2021- present effective Code(s): M06.00 - Rheumatoid arthritis without rheumatoid factor, unspecified site Category: Medical Plan: This Is a 78-year-old female with seronegative erosive rheumatoid arthritis who presents for follow-up. She is on Olimiant 2 mg daily and hydroxychloroquine 400 mg daily. Doing quite well with no active synovitis Continue Olumiant 2 mg daily. Reduce hydroxychloroquine to 200 mg daily Labs before next visit in 3 months (2) Osteopenia with high risk of fracture: Comment: Alendronate: June 2022-took 3 doses, did not tolerate N/V. Reclast 05/2023 uneventful Code(s): M85.80 - Other specified disorders of bone density and structure, unspecified site Category: Medical Plan: DEXA 04/2022with osteopenia T-score -2.0 in the femoral neck. Major osteoporotic fracture risk 10.6%. Hip fracture risk 4.2%. Patient took alendronate in 2022, for 3 doses and could not tolerate it due to GI upset, nausea and vomiting Patient received her 1st Reclast dose 05/2023 uneventful. Plan for next Reclast dose 05/2024 Continue vitamin-D supplementation. Check vitamin-D level before next visit (3) Long-term use of hydroxychloroquine: Code(s): Z79.899 - Other detention (current) drug therapy Category: Medical Plan: Discussed risk of retinopathy associated with hydroxychloroquine. Advised patient to follow-up regularly with Ophthalmology. Plan I spent 25 minutes reviewing patient's chart, evaluating patient, ordering diagnostic workup, counseling patient and documenting in the chart Orders: Orders Complete Blood Count Auto Diff 3 Months M06.00 - Rheumatoid arthritis without rheumatoid factor, unspecified site Comprehensive Met. Panel 3 Months M06.00 - Rheumatoid arthritis without rheumatoid factor, unspecified site C Reactive Protein 3 Months M06.00 - Rheumatoid arthritis without rheumatoid factor, unspecified site Erythrocyte Sedimentation Rate 3 Months M06.00 - Rheumatoid arthritis without rheumatoid factor, unspecified site Vitamin D 25-OH (D2 and D3) 3 Months E55.9 - Vitamin D deficiency, unspecified Coding Level of Care Code Est Pt Level 4 (93853) Complex EM visit Add On G2211 Diagnoses Seronegative rheumatoid arthritis M06.00 Osteopenia with high risk of fracture M85.80 Long-term use of hydroxychloroquine Z79.899
[2024-03-17 10:07] VITALS: BP 130/72; PULSE 70; O2SAT 98; BMI 28.8
== END 2024-03-17 10:38 | disposition home or self-care (01) ==
PROVIDERS: PCP Internal Medicine; Visit Provider Student in an Organized Health Care Education/Training Program
DX: M06.00 Rheumatoid arthritis without rheumatoid factor, unspecified site (principal); M85.80 Other specified disorders of bone density and structure, unspecified site; Z79.899 Other long term (current) drug therapy
CPT/HCPCS: 99214; G2211

== ENCOUNTER → 2024-03-17 09:43 | Outpatient (BNVA) | payer OTHER, SELFPAY | PROVIDERS: PCP Internal Medicine; Visit Provider Student in an Organized Health Care Education/Training Program | DX: M06.00 Rheumatoid arthritis without rheumatoid factor, unspecified site (principal); M85.80 Other specified disorders of bone density and structure, unspecified site; Z79.899 Other long term (current) drug therapy | CPT/HCPCS: 99212 ==

== ENCOUNTER → 2024-04-03 05:19 | Outpatient (BNV) | payer OTHER, SELFPAY | PROVIDERS: Emergency Provider Emergency Medicine; PCP Internal Medicine; Visit Provider Internal Medicine | DX: R07.9 Chest pain, unspecified (principal) | CPT/HCPCS: 93010 ==

== ENCOUNTER 2024-04-03 05:20 | Emergency (ER) | payer OTHER, SELFPAY ==
--- NOTE | 2024-04-03 | ECG_ITS ---
Test Reason : CP Blood Pressure : / mmHG Vent. Rate : 066 BPM Atrial Rate : 066 BPM P-R Int : 140 ms QRS Dur : 074 ms QT Int : 432 ms P-R-T Axes : 039 -17 031 degrees QTc Int : 452 ms Normal sinus rhythm Normal ECG When compared with ECG of 12-MAY-2019 15:34, No significant change was found Referred By: Generic ED Physician Electronically Signed By:LOUANN GIRALDO
--- NOTE | ~2024-04-03 | XR_ITS ---
EXAMINATION: XR CHEST CLINICAL INFORMATION: dyspnea COMPARISON: Chest radiograph 01/05/2022. TECHNIQUE: Frontal view of the chest was obtained. FINDINGS: Normal appearance of the cardiomediastinal structures. No effusions or pneumothoraces. Normal pattern of pulmonary vasculature. No focal pulmonary consolidation. No acute skeletal abnormalities identified. Chronic osteophytosis of the right acromioclavicular joint. Mild aortic calcific atherosclerosis. XR/XR chest 1V IMPRESSION: No acute cardiopulmonary abnormalities. Electronically signed by: Sai Barreto MD 04/03/2024 06:22 AM CEFERINO
[2024-04-03 05:31] VITALS: BP 129/61; PULSE 66; RESP 20; TEMP 37.2; O2SAT 99; BMI 28.7
--- NOTE | 2024-04-03 05:44 | PC.NURSE ---
Pt a&ox3, no signs of distress Pt reports 7 cp, with onset @ 0300 woken up out of sleep. Plan of care ongoing.
[2024-04-03 06:26] VITALS: BP 136/69; PULSE 60; RESP 16; TEMP 36.6; O2SAT 97
[2024-04-03 06:37] LABS: MANUAL DIFF FLAG NO
[2024-04-03 06:42] LABS: Basophils Absolute Auto 0.1 X10*3/uL (0.0-0.2); Basophils Percent Auto 0.6 % (0-2); Eosinophils Absolute Auto 0.1 X10*3/uL (0.0-0.4); Eosinophils Percent Auto 0.7 % (0-4); Hematocrit 37.2 % (37.0-47.0); Hemoglobin 12.9 g/dl (12.0-16.0); Imm Gran Abs Auto 0.05 X10*3/uL (0.00-0.03); Imm Gran Pct Auto 0.5 % (0.0-0.4); Lymphocytes Absolute Auto 2.4 X10*3/uL (1.2-4.9); Lymphocytes Percent Auto 24.3 % (20-40); Mean Corpuscular HGB Conc 34.7 g/dl (31.0-35.0); Mean Corpuscular Hemoglobin 30.6 pg (27.0-33.0); Mean Corpuscular Volume 88.2 fL (80.0-98.0); Mean Platelet Volume 10.1 fL (9.4-12.3); Monocytes Percent Auto 9.6 % (2-11); Neutrophils Absolute Auto 6.4 x10*3/uL (2.0-8.3); Neutrophils Percent Auto 64.3 % (45-73); Platelet Count 239 X10*3/uL (160-400); Red Blood Count 4.22 X10*6/uL (4.20-5.50)
[2024-04-03 06:56] LABS: Alanine Aminotransferase 14 U/L (0-31); Alkaline Phosphatase 53 U/L (39-117); Anion Gap 13 (12-20); Aspartate Amino Transferase 19 U/L (5-31); Bilirubin Total 0.5 mg/dL (0.0-1.0); Blood Urea Nitrogen 12 mg/dL (9-16); Carbon Dioxide 21 mmol/L (22-29); Chloride 106 mmol/L (96-108); Creatinine Clr Calc Pharmacy 59.7; Estimated Glomerular Filt Rate > 60; Glucose Random 93 mg/dL (60-115); Potassium 3.6 mmol/L (3.3-5.1); Sodium 136 mmol/L (135-145); Total Protein 6.3 g/dL (6.5-8.0)
--- NOTE | 2024-04-03 07:00 | ED_ITS ---
HPI - Chest Pain General Chief Complaint: Chest Pain Stated Complaint: chest pain Time Seen by Provider: 04/03/24 06:29 Source: patient and official court interpreter Mode of arrival: ambulatory Limitations: language barrier History of Present Illness ED Provider: Eduardo GARCIA narrative: Patient is a 78-year-old Danish speaking female with history of rheumatoid arthritis with long time use of hydroxychloroquine presenting to the emergency department with complaint of sudden onset left sided chest pain which woke her from sleep around 3am. States pain radiates through to upper back. Rates pain at 3/10 at onset, and is currently 3/10. Denies dyspnea or palpitations. Denies cough or recent fevers. Denies recent calf pain or swelling, recent travel. MD complaint: chest pain Pertinent past history: other Onset (ago): hour(s) Timing of current episode: still present Onset: during rest Pain location: left chest Pain radiation: back Severity: mild Pain scale (0-10): 3 Quality: sharp Treatment prior to arrival: none Related Data Home Medications ?Medication ?Instructions ?Recorded ?Confirmed clonazepam 0.5 mg tablet 0.5 mg PO TID 03/10/21 12/02/23 multivitamin (Daily Vitamin 1 tab PO DAILY 06/10/21 12/02/23 Formula tablet) atorvastatin 10 mg tablet 10 mg PO BEDTIME 06/11/21 12/02/23 meclizine 12.5 mg tablet 12.5 mg PO QID PRN Dizziness 04/06/22 12/02/23 melatonin 5 mg tablet 5 mg PO BEDTIME 08/14/22 12/02/23 diphenhydramine HCl 25 mg tablet 25 mg PO BEDTIME 01/28/23 12/02/23 (Banophen) triamcinolone acetonide 0.5 % appl topical 01/28/23 12/02/23 topical cream citalopram 40 mg tablet 40 mg PO DAILY 05/19/23 12/02/23 hydroxychloroquine 200 mg tablet 200 mg PO DAILY 03/17/24 Previous Rx's ?Medication ?Instructions ?Recorded docusate sodium 100 mg capsule 100 mg PO BEDTIME #90 caps 07/08/23 famotidine 40 mg tablet 40 mg PO DAILY #30 tabs 12/23/23 cholecalciferol (vitamin D3) 25 25 mcg PO BID #60 tabs 03/14/24 mcg (1,000 unit) tablet Olumiant 2 mg tablet (baricitinib) 2 mg PO DAILY #30 tabs 03/15/24 lidocaine 5 % topical patch 1 patch topical DAILY #15 ea 04/03/24 Allergies Allergy/AdvReac Type Severity Reaction Status Date / Time alendronate sodium Allergy Vomiting Verified 04/03/24 05:34 sarilumab [From Kevzara] Allergy injection Verified 04/03/24 05:34 site reaction tocilizumab [From Actemra] Allergy injection Verified 04/03/24 05:34 site reaction fruits Allergy Mild itchy Uncoded 09/02/23 09:57 mouth and throat Review of Systems 2 Review of Systems: As per HPI. Yes all other systems are reviewed and are negative Constitutional: Constitutional: Reports as [facility] Past Medical History Medical History Osteopenia with high risk of fracture Panic attack Anxiety Fibrocystic breast disease Tension headache Microscopic hematuria History of abnormal Pap smear Denial Osteoarthritis Hyperlipemia Osteopenia Depression Rheumatoid arthritis Surgical History Hx of colonoscopy Family History Family History Mother Rheumatoid arthritis Father CVD (cardiovascular disease) Social History Social History Alcohol intake: never Patient Tobacco Use Status: Current someday Tobacco user Cigarettes Per Day: 2 Years Smoked: 30 Smoked in Last 30 Days: Yes Use of substances other than those prescribed or required for medical reasons: No Advance Directives: No Advance Directives Information Provided: Yes Physical Exam 2 Vital Signs: Vital Signs: Last Vital Signs Temp 97.9 F 04/03/24 06:26 Pulse 60 04/03/24 06:26 Resp 16 04/03/24 06:26 BP 136/69 04/03/24 06:26 Pulse Ox 97 04/03/24 06:26 O2 Del Method Room Air 04/03/24 06:26 BMI result Body Mass Index 28.7 Vital signs have been reviewed and appear to be correct. Blood pressure normal. Heart rate normal. Respiratory rate normal. Temperature normal. Oxygen saturation normal. Const: General: cooperative, healthy appearing and no acute distress O rientation/consciousness: oriented to person, oriented to place, oriented to time and patient oriented x3 Limitations: no limitations HEENT: Head: Yes normocephalic and Yes atraumatic Ears: external ears normal General nose exam: Normal external nose present Face and sinus: Yes face symmetric Mouth: oropharynx normal and moist mucous membranes Throat: Yes uvula midline Eyes: Pupils: Equal, round and reactive pupils present Neck: Neck: Yes normal visual inspection and Yes supple Resp: Effort & Inspection: normal respiratory effort and able to speak in complete sentences Auscultation: clear to auscultation bilaterally Cardio: Rate: regular rate Rhythm: regular rhythm Heart sounds: S1 normal heart sound present and S2 normal heart sound present GI: Palpation (GI): Soft to palpation and nontender Auscultation: n ormoactive bowel sounds : General: Yes no CVA tenderness Back/Spine/Pelvis: Back: no CVA tenderness Skin: General skin exam: elasticity normal and turgor normal Neuro: General: oriented to person, oriented to place, oriented to time, patient oriented x3, moves all extremities, no focal motor deficits and CN's II- XI intact bilaterally Cranial nerves: Yes Equal, round and reactive pupils present Cognition (Neuro): normal cognition Extrem: General: Yes full ROM, Yes no pedal edema and Yes no calf tenderness Psych: Mental Status: mental status grossly normal Affect: normal affect Thought process: Normal thought process present Medical Decision Making Medical Decision Making MDM Narrative: Patient is a 78-year-old Danish speaking female with history of rheumatoid arthritis with long time use of hydroxychloroquine presenting to the emergency department with complaint of sudden onset left sided chest pain which woke her from sleep around 3am. On exam patient is awake, A+Ox3, VS WNL, afebrile, normal neurological exam without focal deficits, physical exam findings as above. Given reported symptoms and physical exam findings, initial differential includes chest wall pain, costochondritis. Less likely ACS or PE but will check EKG, troponin, d-dimer. Labs notable for no leukocytosis, no anemia, negative d-dimer, negative troponin, no significant electrolyte abnormalities. X-ray notable for no evidence of pneumonia, pneumothorax, cardiomegaly. My interpretation is in agreement with the radiologist's interpretation. Results discussed with patient all questions answered. Advised patient to follow-up with primary care provider. Return precautions discussed at bedside. Patient verbalized understanding of and agreement with plan. In-person parts interpreter was utilized for all interactions, assessments, and discussions. Differential Diagnosis Differential Diagnoses: The differential diagnosis associated with the presentation includes As per [facility] Admission/Observation Consideration of admission/observation: Escalation of care including admission/observation considered Patient would have been admitted to the hospital had their work up had any findings where hospital admission was appropriate and their clinical presentation warranted hospital admission. Lab Data [facility] Lab Attestation statement: I reviewed the patient's lab results. As per [facility] 04/03/24 06:31 04/03/24 06:31 Labs: Lab Results 04/03/24 04/03/24 Range/Units 06:31 08:04 WBC 10.0 (4.8-10.8) X10*3/uL RBC 4.22 (4.20-5.50) X10*6/uL Hgb 12.9 (12.0-16.0) g/dl Hct 37.2 (37.0-47.0) % MCV 88.2 (80.0-98.0) fL MCH 30.6 (27.0-33.0) pg MCHC 34.7 (31.0-35.0) g/dl RDW 13.0 (11.0-16.0) % Plt Count 239 (160-400) X10*3/uL MPV 10.1 (9.4-12.3) fL Immature Gran % (Auto) 0.5 H (0.0-0.4) % Neut % (Auto) 64.3 (45-73) % Lymph % (Auto) 24.3 (20-40) % [place] % (Auto) 9.6 (2-11) % Eos % (Auto) 0.7 (0-4) % Baso % (Auto) 0.6 (0-2) % Lymph # (Auto) 2.4 (1.2-4.9) X10*3/uL [place] # (Auto) 1.0 (0.1-1.2) X10*3/uL Eos # (Auto) 0.1 (0.0-0.4) X10*3/uL Baso # (Auto) 0.1 (0.0-0.2) X10*3/uL Abs Immat Gran (auto) 0.05 H (0.00-0.03) X10*3/uL Absolute Neuts (auto) 6.4 (2.0-8.3) x10*3/uL Absolute Nucleated RBC 0.000 (0.0-0.012) X10*3/uL Nucleated RBC % (auto) 0.0 (0.0-0.2) /100WBC D-Dimer High Sensitivty < 150 NG/ML Sodium 136 (135-145) mmol/L Potassium 3.6 (3.3-5.1) mmol/L Chloride 106 (96-108) mmol/L Carbon Dioxide 21 L (22-29) mmol/L Anion Gap 13 (12-20) BUN 12 (9-16) mg/dL Creatinine 0.77 (0.5-1.4) mg/dL Estim Creat Clear Calc 59.7 Estimated GFR > 60 Random Glucose 93 (60-115) mg/dL Calcium 9.0 D (8.4-10.2) mg/dL Total Bilirubin 0.5 (0.0-1.0) mg/dL AST 19 (5-31) U/L ALT 14 (0-31) U/L Alkaline Phosphatase 53 (39-117) U/L Troponin I High Sens < 2.7 (<3.5-17.0) ng/L Total Protein 6.3 L (6.5-8.0) g/dL Albumin 4.0 (3.5-5.0) g/dL Independent Interpretation I performed an independent interpretation of an: EKG (normal sinus rhythm, rate 66bpm, normal RI interval, no significant change from prior) and Plain X-Ray Interpretation: No evidence of pneumonia, pneumothorax, cardiomegaly on CXR. Radiology Impression Discussion of test interpretation with radiology: I have reviewed the radiologist's reading. Radiologist Impression: XR/XR chest 1V IMPRESSION: No acute cardiopulmonary abnormalities. External Record Review External record reviewed: Inpatient record, Office record and Outpatient record Discharge Plan Discharge Clinical Impression: Atypical chest pain Patient Disposition: Home, Self-Care Instructions: Noncardiac Chest Pain (ED), Chest Wall Pain (ED) Additional Instructions: You were evaluated in the emergency department today for chest pain. Your evaluation has shown no signs of medical conditions requiring emergent intervention at this time, however we recommend that you follow-up with your primary care physician or your interlocking pavement installer for further testing as an outpatient. Return to the emergency department if you experience worsening or uncontrolled chest pain, shortness of breath, lightheadedness, feeling faint, loss of consciousness, nausea, vomiting, or any other concerning symptoms. Prescriptions: New lidocaine 5 % adhesive patch,medicated 1 patch topical DAILY Qty: 15 0RF Rx Instructions: leave on most painful area for up to 12 hrs No Action atorvastatin 10 mg tablet 10 mg PO BEDTIME meclizine 12.5 mg tablet 12.5 mg PO QID PRN (Reason: Dizziness) docusate sodium 100 mg capsule 100 mg PO BEDTIME Qty: 90 3RF famotidine 40 mg tablet 40 mg PO DAILY Qty: 30 2RF cholecalciferol (vitamin D3) 25 mcg (1,000 unit) tablet 25 mcg PO BID Qty: 60 0RF Olumiant 2 mg tablet 2 mg PO DAILY Qty: 30 3RF clonazepam 0.5 mg tablet 0.5 mg PO TID melatonin 5 mg tablet 5 mg PO BEDTIME multivitamin [Daily Vitamin Formula] Tablet 1 tab PO DAILY diphenhydramine HCl [Banophen] 25 mg tablet 25 mg PO BEDTIME triamcinolone acetonide 0.5 % cream topical citalopram 40 mg tablet 40 mg PO DAILY hydroxychloroquine 200 mg tablet 200 mg PO DAILY Print Language: Danish
[2024-04-03 07:06] LABS: Troponin-I High Sensitivity < 2.7 ng/L (<3.5-17.0)
[2024-04-03 08:00] VITALS: BP 146/75; PULSE 63; RESP 17; TEMP 36.5; O2SAT 99
[2024-04-03 08:30] LABS: D Dimer High Sensitivity < 150 NG/ML
[2024-04-03 09:36] VITALS: BP 146/75; PULSE 66; RESP 12; TEMP 36.5; O2SAT 99
== END 2024-04-03 09:37 | disposition home or self-care (01) ==
PROVIDERS: Registered Nurse Emergency; Emergency Provider Emergency Medicine; PCP Internal Medicine
DX: R07.89 Other chest pain (principal); R06.00 Dyspnea, unspecified; M06.9 Rheumatoid arthritis, unspecified; Z79.899 Other long term (current) drug therapy
CPT/HCPCS: 36415; 71045; 80053; 84484; 85025; 85379; 93005; 99283; 99285

== ENCOUNTER 2024-06-07 09:15 | Outpatient (REF) | payer OTHER, SELFPAY ==
[2024-06-07 11:38] LABS: MANUAL DIFF FLAG NO
[2024-06-07 11:43] LABS: Basophils Absolute Auto 0.1 X10*3/uL (0.0-0.2); Basophils Percent Auto 0.9 % (0-2); Eosinophils Absolute Auto 0.1 X10*3/uL (0.0-0.4); Eosinophils Percent Auto 1.1 % (0-4); Hematocrit 41.9 % (37.0-47.0); Hemoglobin 13.8 g/dl (12.0-16.0); Hemoglobin 13.9 g/dl (12.0-16.0); Imm Gran Abs Auto 0.01 X10*3/uL (0.00-0.03); Imm Gran Abs Auto 0.02 X10*3/uL (0.00-0.03); Imm Gran Pct Auto 0.2 % (0.0-0.4); Imm Gran Pct Auto 0.4 % (0.0-0.4); Lymphocytes Absolute Auto 2.2 X10*3/uL (1.2-4.9); Lymphocytes Absolute Auto 2.3 X10*3/uL (1.2-4.9); Lymphocytes Percent Auto 38.7 % (20-40); Lymphocytes Percent Auto 38.8 % (20-40); Mean Corpuscular HGB Conc 32.9 g/dl (31.0-35.0); Mean Corpuscular HGB Conc 33.1 g/dl (31.0-35.0); Mean Corpuscular Hemoglobin 30.1 pg (27.0-33.0); Mean Corpuscular Hemoglobin 30.2 pg (27.0-33.0); Mean Corpuscular Volume 91.3 fL (80.0-98.0); Mean Corpuscular Volume 91.5 fL (80.0-98.0); Mean Platelet Volume 10.9 fL (9.4-12.3); Monocytes Absolute Auto 0.6 X10*3/uL (0.1-1.2); Monocytes Percent Auto 10.4 % (2-11); Monocytes Percent Auto 10.7 % (2-11); Neutrophils Absolute Auto 2.8 x10*3/uL (2.0-8.3); Neutrophils Percent Auto 48.4 % (45-73); Neutrophils Percent Auto 48.5 % (45-73); Platelet Count 269 X10*3/uL (160-400); Platelet Count 282 X10*3/uL (160-400); Red Blood Count 4.58 X10*6/uL (4.20-5.50); Red Cell Distribution Width 13.2 % (11.0-16.0); White Blood Count 5.7 X10*3/uL (4.8-10.8); White Blood Count 5.9 X10*3/uL (4.8-10.8)
[2024-06-07 12:09] LABS: Alanine Aminotransferase 16 U/L (0-31); Albumin Level 4.4 g/dL (3.5-5.0); Alkaline Phosphatase 58 U/L (39-117); Anion Gap 11 (12-20); Aspartate Amino Transferase 19 U/L (5-31); Bilirubin Total 0.5 mg/dL (0.0-1.0); Blood Urea Nitrogen 12 mg/dL (9-16); Calcium 9.1 mg/dL (8.4-10.2); Carbon Dioxide 25 mmol/L (22-29); Chloride 107 mmol/L (96-108); Estimated Glomerular Filt Rate > 60; Glucose Random 93 mg/dL (60-115); Sodium 139 mmol/L (135-145); Total Protein 7.4 g/dL (6.5-8.0)
[2024-06-07 12:10] LABS: Alanine Aminotransferase 14 U/L (0-31); Albumin Level 4.4 g/dL (3.5-5.0); Alkaline Phosphatase 58 U/L (39-117); Anion Gap 11 (12-20); Aspartate Amino Transferase 19 U/L (5-31); Bilirubin Total 0.5 mg/dL (0.0-1.0); Blood Urea Nitrogen 11 mg/dL (9-16); C Reactive Protein 0.13 mg/dL (< or = 0.50); Calcium 9.3 mg/dL (8.4-10.2); Carbon Dioxide 24 mmol/L (22-29); Chloride 107 mmol/L (96-108); Estimated Glomerular Filt Rate > 60; Glucose Random 92 mg/dL (60-115); Potassium 3.9 mmol/L (3.3-5.1); Sodium 138 mmol/L (135-145); Total Protein 7.4 g/dL (6.5-8.0)
[2024-06-07 12:18] LABS: Erythrocyte Sedimentation Rate 3 MM/HR (0-20)
== END 2024-06-07 09:16 | disposition home or self-care (01) ==
LOC: HO.HHCL 09:15
PROVIDERS: Student in an Organized Health Care Education/Training Program; Visit Provider Internal Medicine
DX: M06.00 Rheumatoid arthritis without rheumatoid factor, unspecified site (principal); Z79.899 Other long term (current) drug therapy; E78.00 Pure hypercholesterolemia, unspecified; F32.5 Major depressive disorder, single episode, in full remission; H81.11 Benign paroxysmal vertigo, right ear; M67.813 Other specified disorders of tendon, right shoulder
CPT/HCPCS: 36415; 80053; 85025; 85652; 86140

== ENCOUNTER 2024-06-22 10:46 | Outpatient (AMB) | payer OTHER, SELFPAY ==
--- NOTE | 2024-06-22 10:48 | A.OFFVIS_ITS ---
Vital Signs 06/22/24 10:53 Height 5 ft 3 in Weight 164 lb 7.437 oz BMI 29.1 BP 130/80 Blood Pressure Location Rt brachial Position Sitting Respiration 16 Pulse 71 Pulse Source Pulse Oximeter Pulse Oximetry (%) 98 Oxygen Delivery Method Room Air Intake Visit Reasons: RA Intake Note: Patient presents for RA. Cartoon Designer Required: Yes Cartoon Designer Language: Biofuels Manager Services: Cartoon Designer Present Cartoon Designer Name: Steve [id number] Information Interpreted: non-clinical & clinical Allergies alendronate sodium Allergy (Verified 06/22/24 10:53) Vomiting sarilumab [From Kevzara] Allergy (Verified 06/22/24 10:53) injection site reaction tocilizumab [From Actemra] Allergy (Verified 06/22/24 10:53) injection site reaction fruits Allergy (Mild, Uncoded 09/02/23 09:57) itchy mouth and throat Medication List - Last Reconciled 06/22/24 by Kelly Olguin MD atorvastatin 10 mg PO BEDTIME cholecalciferol (vitamin D3) 25 mcg PO BID citalopram 40 mg PO DAILY clonazepam 0.5 mg PO TID diphenhydramine HCl (Banophen) 25 mg PO BEDTIME docusate sodium 100 mg PO BEDTIME famotidine 40 mg PO DAILY hydroxychloroquine 200 mg PO DAILY lidocaine 5% 1 patch topical DAILY meclizine 12.5 mg PO QID PRN melatonin 5 mg PO BEDTIME multivitamin (Daily Vitamin Formula tablet) 1 tab PO DAILY triamcinolone acetonide 0.5% appl topical HPI Comments Details: Patient is a 78-year-old female with hyperlipidemia, depression, polyarticular osteoarthritis, osteopenia with high fracture risk and seronegative rheumatoid arthritis here today for follow up Interval History: Patient last seen 03/17/[address] Paris. At that time she was on Olumiant 2 mg daily and hydroxychloroquine 400 mg daily and doing very well without any complaints and there was no active synovitis Today, States that 2 months ago she stopped taking it because she was having vomiting and after stopping the medication it improved. Currently only on plaquenil and is doing surprisingly well Only complains of left medial knee pain and right shoulder pain Right shoulder pain - 2 months - No trauma - not sure if its related to her sleeping on that side but she always sleeps on that side so she does not think it is that - Left shoulder is fine Rheumatologic History: seroneg erosive Humira: prior to 2016 Enbrel: 2016 Methotrexate: 2016 Sulfasalazine: 11/2011- 03/2018 Arava: 05/2011- 07/2018 Xeljanz: 01/2018-07/2018 Plaquenil: 06/2017 previously caused dizziness, restarted on Plaqueni - present Kevzara: 09/2017 initially did well, but caused an injection site reaction Actemra: 09/2018- initially did well, experienced injection site reactions.? Rinvoq: initially did well, stopped due to nausea, vomiting, abdominal pain Olumiant pt. preferred oral medication 01/2021- present effective Current Rheumatology Medication(s): Olumiant 2mg daily (not taking) Plaquenil 400mg daily [facility] Medical History (Updated 06/22/24 @ 12:01 by Kelly Olguin MD) alf (current) use of janus kinase inhibitor Osteopenia with high risk of fracture Panic attack Anxiety Fibrocystic breast disease Tension headache Microscopic hematuria History of abnormal Pap smear Denial Osteoarthritis Hyperlipemia Osteopenia Depression Rheumatoid arthritis Surgical History Hx of colonoscopy Family History Mother Rheumatoid arthritis Father CVD (cardiovascular disease) Social History Alcohol intake: never Patient Tobacco Use Status: Current someday Tobacco user Cigarettes Per Day: 2 Years Smoked: 30 Review of Systems Const Details: Review of Systems Constitutional: Denies fever, chills, weight loss ENT: Denies vision changes, eye pain or eye redness, dental caries, dry mouth GI: Denies nausea, vomiting, diarrhea, abdominal pain, change in BM Pulm: Denies SOB, JARRETT, hemoptysis, wheezing Cards: Denies chest pain, palpitations Skin: Denies Raynaud's, rash, nail changes, photosensitivity, STONE CLEANER: Denies headaches, weakness, paresthesias, recurrent falls MSK: as per HPI All other systems reviewed and are unremarkable except noted above Physical Exam Vital Signs: Last Vital Signs Pulse 71 06/22/24 10:53 Resp 16 06/22/24 10:53 BP 130/80 06/22/24 10:53 Pulse Ox 98 06/22/24 10:53 Oxygen Delivery Method Room Air 06/22/24 10:53 BMI result Body Mass Index 29.1 Vital signs reviewed Physical Examination CONSTITUITIONAL Patient alert and cooperative. Well appearing and in no apparent painful distress HEENT Conjunctiva and sclera clear. ?Pupils equal round and reactive to light. ?No lymphadenopathy. ? CHEST/RESPIRATORY SYSTEM Normal respiratory effort and able to speak in complete sentences. ?Clear to auscultation bilaterally. ?No crackles, rales, rhonchi, wheezes heard. CARDIAC SYSTEM Regular rate and rhythm. ?S1 and S2 heard no murmurs. ?Radial pulses intact bilaterally MSK Hands: ?Good charge operator strength bilaterally. No deformities noted. ?No synovitis noted to the MCPs, PIPs or DIPs. ?No tenderness to palpation of these joints. Wrists: ?Full range of motion at the left wrist without pain. Right wrist with synovial hypertrophy and TTP Elbows: Full range of motion without pain. No tenderness, weakness, swelling, increased warmth or erythema. Shoulders: Full active ROM to the left shoulder without pain. Right shoulder with limited active and passive ROM. Only up to 90 degrees with TTP of the subacromial bursa>AC>GH joint Hips: Full range of motion without pain. Hip bursa: No tenderness to palpation Knees: ?Full range of motion. ?No tenderness, swelling, increased warmth or erythema.?No effusion or crepitations. MIld TTP of the pes anserine bursa bilaterally Ankles: Full range of motion. ?No tenderness, swelling, increased warmth or andrey thema.? Feet: ?Negative squeeze test. ?No tenderness to palpation or swelling of the MTPs. Tender points:?No tenderness to palpation of the bilateral trapezius, supraspinatus, greater trochanters, anterior costochondral junctions, bilateral gluteal areas, bilateral suboccipital muscle insertions SKIN Skin intact without rashes. Office Procedures AMB Joint Injection/Aspiration Joint Injection/Aspiration Details: Procedure was explained to the patient and consent was obtained. ? The area of interest was identified and confirmed with patient. ?This was subsequently cleaned with chlorhexidine x3. ? The area was then anesthetized using ethyl chloride spray. 40 mg Kenalog with 1 cc 1% lidocaine was injected without issue. ?Minimal to no bleeding. ?Patient tolerated procedure. Primary Site: right shoulder Prep: site was prepped using aseptic technique and ethochloride spray was applied Injected: 40 mg of, Kenalog, with 1 mL of and 1% plain lidocaine Approach Used: other Procedure: The patient tolerated the procedure well Coding 96096 - Glenohumeral/Tronchanteric Bursa/Intraarticular Procedure code (CPT) selection complete Office Meds lidocaine (PF) 10 mg/mL (1 %) injection solution Performing Provider: Kelly Olguin MD Performing Location: [facility] [place] Rheumatology Administered by: Kelly Olguin MD on 06/22/24 11:56 Dose Route Admin Location Dispensed Lot Number Expiration Date [facility] Batch Plant Operator 1 mL Infiltration right subacromial bursa 2 mL [id number] 08/08/26 22891-443-35 [facility] Kenalog 40 mg/mL suspension for injection Performing Provider: Kelly Olguin MD Performing Location: [facility] [place] Rheumatology Administered by: Kelly Olguin MD on 06/22/24 11:56 Dose Route Admin Location Dispensed Lot Number Expiration Date [facility] Batch Plant Operator 40 mg intrabursal right subacromial bursa 1 mL [id number] 11/07/25 [address]-9 [employer] Results Reviewed Results Reviewed: Laboratory Tests 05/13/23 06/28/23 06/07/24 10:45 12:20 09:21 WBC 5.7 RBC 4.60 Hgb 13.9 Hct 42.0 MCV 91.3 Plt Count 269 ESR 3 Sodium 139 Potassium 4.0 Chloride 107 Carbon Dioxide 25 BUN 12 Creatinine 0.84 AST 19 ALT 16 Alkaline Phosphatase 58 C-Reactive Protein 0.13 Hepatitis A IgM Ab Nonreactive Hep Bs Antigen Negative Hep Bs Antibody REACTIVE Hep B Core Total Ab Nonreactive Hepatitis C Ab (EIA) Nonreactive TB Test (T-Spot) Com Negative XR Bilateral Hands 12/2021 FINDINGS (Right): Redemonstration of the loss of joint spaces especially involving the intercarpal, carpometacarpal and radiocarpal joints, there are subarticular and marginal erosions, this is compatible with patient history of rheumatoid arthritis, there has been progression compared with the prior exam from 2017. The metacarpophalangeal and interphalangeal joints are relatively spared. FINDINGS (Left): Redemonstration of the intercarpal, radiocarpal and carpometacarpal joint narrowing, compatible with patient history of rheumatoid arthritis, this has slightly progressed from prior exam of 2017. Metacarpophalangeal and interphalangeal joints are relatively spared. DEXA 04/16/22 FINDINGS: AP SPINE L1-L4: Current: BMD 1.113 g/cm2, Z-score 0.9, T-score -0.6, normal, 1.0% decrease from previous, 4.1% decrease from baseline (<5% change is not significant). Prior: BMD 1.124 g/cm2. Baseline: BMD 1.161 g/cm2. LEFT FEMUR, NECK: Current: BMD 0.765 g/cm2, Z-score -0.2, T-score -2.0, osteopenia. Prior: BMD 0.851 g/cm2. Baseline: BMD 0.947 g/cm2. LEFT FEMUR, TOTAL: Current: BMD 0.839 g/cm2, Z-score 0.2, T-score -1.3, osteopenia, 12.3% decrease from previous, 18.5% decrease from baseline (<5% change is not significant). Prior: BMD 0.957 g/cm2. Baseline: BMD 1.030 g/cm2. FRAX 10.6/4.2% Assessment & Plan Assessment & Plan (1) Seronegative rheumatoid arthritis: Comment: seroneg erosive Humira: prior to 2015 Enbrel: 2016 Methotrexate: 2016 Sulfasalazine: 11/2011- 03/2018 Arava: 05/2011- 07/2018 Xeljanz: 01/2018-07/2018 Plaquenil: 06/2017 previously caused dizziness, restarted on Plaqueni - present Kevzara: 09/2017 initially did well, but caused an injection site reaction Actemra: 09/2018- initially did well, experienced injection site reactions.? Rinvoq: initially did well, stopped due to nausea, vomiting, abdominal pain Olumiant pt. preferred oral medication 01/2021- 04/2024. initially did well but stopped d/t Vomiting Code(s): M06.00 - Rheumatoid arthritis without rheumatoid factor, unspecified site Category: Medical Plan: #Seronegative erosive RA Patient is a 78-year-old female with seronegative erosive rheumatoid arthritis Has not been on Olumiant for the past 2 months due to vomiting Despite this she has been overall stable with regards to her rheumatoid arthritis Discussed with patient that she has erosions because of her rheumatoid arthritis and my concern is that Plaquenil alone would not be enough to keep her disease in remission. We discussed the option of adding a new medication now or waiting and she preferred to wait. We will recheck x-rays to see if there is any progression of her erosions Plan - Plaquenil 400mg daily - Stop Olumiant - Monitor off additional medication - RTC 3 months - Labs before visit: CBC, CMP, ESR, CRP, hepatitis panel, T spot (2) Osteopenia with high risk of fracture: Comment: Alendronate: June 2022-took 3 doses, did not tolerate N/V. Reclast 05/2023 uneventful Code(s): M85.80 - Other specified disorders of bone density and structure, unspecified site Category: Medical Plan: #Osteopenia Patient with osteopenia and high FRAX index Currently on Reclast infusions, she is due for her second dose Plan - IV Reclast infusion 5mg yearly - Check Vitamin D - DEXA ordered today (3) Pes anserine bursitis: Code(s): M70.50 - Other bursitis of knee, unspecified knee Qualifiers: Laterality: bilateral Qualified Code(s): M70.51 - Other bursitis of knee, right knee; M70.52 - Other bursitis of knee, left knee Plan: #Bilateral pes anserine bursitis Recommended rest and ice for now If worse in the future can consider steroid injection (4) Subacromial bursitis of right shoulder joint: Code(s): M75.51 - Bursitis of right shoulder Plan: #Subacromial bursitis of the right shoulder S/p steroid injection today (5) Long-term use of hydroxychloroquine: Code(s): Z79.899 - Other intermediate designer (current) drug therapy Category: Medical Plan: #Long-term Use of Hydroxychloroquine Discussed with patient the risks and benefits of hydroxychloroquine in managing the rheumatic condition Benefits include: - Reduced pain, reduce mortality, maintenance of remission and reduction of flares Risks include: - GI upset, skin hyperpigmentation, retinal toxicity (especially after more than 5 years of use), myopathy Advised yearly ophthalmology visits Plan I spent 40 minutes reviewing the record and labs, taking a history, examining the patient, discussing the treatment plan and documenting in the medical record Orders: Orders XR hand wrist LT Today M06.00 - Rheumatoid arthritis without rheumatoid factor, unspecified site Comprehensive Met. Panel 3 Months M06.00 - Rheumatoid arthritis without rheumatoid factor, unspecified site Erythrocyte Sedimentation Rate 3 Months M06.00 - Rheumatoid arthritis without rheumatoid factor, unspecified site Hepatitis A,B,C Profile 3 Months M06.00 - Rheumatoid arthritis without rheumatoid factor, unspecified site T Spot TB 3 Months M06.00 - Rheumatoid arthritis without rheumatoid factor, unspecified site AMB Joint Injection/Aspiration Today M06.00 - Rheumatoid arthritis without rheumatoid factor, unspecified site, M75.51 - Bursitis of right shoulder XR hand wrist RT Today M06.00 - Rheumatoid arthritis without rheumatoid factor, unspecified site Complete Blood Count Auto Diff 3 Months M06.00 - Rheumatoid arthritis without rheumatoid factor, unspecified site C Reactive Protein 3 Months M06.00 - Rheumatoid arthritis without rheumatoid factor, unspecified site Vitamin D 25-OH (D2 and D3) 3 Months M06.00 - Rheumatoid arthritis without rheumatoid factor, unspecified site XR DEXA axial skeleton Today M85.80 - Other specified disorders of bone density and structure, unspecified site Referrals Infusion Center Notification M85.80 - Other specified disorders of bone density and structure, unspecified site Coding Level of Care Code Est Pt Level 5 (61552) Complex EM visit Add On G2211 Diagnoses Seronegative rheumatoid arthritis M06.00 Osteopenia with high risk of fracture M85.80 Pes anserinus bursitis of both knees M70.51; M70.52 Laterality: bilateral Subacromial bursitis of right shoulder joint M75.51 Long-term use of hydroxychloroquine Z79.899 CPT Codes Coding - Joint 7: 20261 - Glenohumeral/Tronchanteric Bursa/Intraarticular ([id number])
[2024-06-22 10:53] VITALS: BP 130/80; PULSE 71; RESP 16; O2SAT 98; BMI 29.1
--- OUTSIDE RECORDS SUMMARY | 2024-06-22 11:28 | XMS_ITS ---
Author Name Clau Ochoa NP Address [address] [place] [address] Phone [phone] [facility] Team Providers Care Bill Clerk Name Role Phone Clau Ochoa Unavailable [phone] Unavailable Unavailable Unavailable JUANA PRIEST Unavailable [phone] Reason for Referral Not Available Allergies, adverse reactions, alerts No known allergies History of medication use Medication Class Instructions Start Date End Date Olumiant 2 mg Tab No Data Available 2021-08-13 No Da ta Available Docusate Sodium 100 mg Cap TAKE 1 CAPSUL E BY MOUTH AT BEDTIME 2021-11-05 No Data Available Atorvastatin Calcium 10 mg Tab 1 tablet orally HS 2021 No Data Available Citalopram Hydrobromide 20 m g Tab 1 tablet orally daily 2022-01-19 No Data Available clonazePAM 0.5 mg Tab 1 tablet three cain es daily 2022-01-19 No Data Available Hydroxychloroquine Sulfate 2 00 mg Tab No Data Available 2022-01-19 No Data Available Naproxen 500 mg Tab No Data Available 2022-01-19 No Data Available Meclizine 12.5 mg Tab 1 tablet orally ev andrey 6 hours as needed 2022-01-20 No Data Available One-Daily Multi-Vitamin Tab 1 tablet orally daily 2021 No Data Available MELATONIN TAB 5MG 1 tablet once daily prn 2022-02-10 No Data Available Olumiant 2 mg Tab 1 tablet orally daily 2022-03-02 N o Data Available Hydroxychloroquine Sulfate 2 00 mg Tab take 1 tablet by mouth daily 2022-03-02 No Data Available Naproxen 500 mg Tab delayed rel 1 tablet orally 2 times per day as needed 2022-03-02 No Data Available Problem List Problem Status Onset Date Resolved Date Hyperlipemia Active 2022-02-20 N/A Anxiety Active 2022-03-02 N/A Major depressive disorder, r ecurrent, severe with psychotic symptoms Active 2022-02-20 N/A Vertigo Active 2022-03-02 N/A Insomnia Active 2022-03-02 N/A Rheumatoid arthritis without rheumatoid factor, unspecified site Active 2022-02-20 N/A 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 Active 2022-03-03 N/A Encounters Encounters Type Facility Date of Service Diagnosis/Co mplaint Medication List Documented (1159F) [facility], ([place]) 03/02/2022 Medication List Documented (1159F) [facility]/02/2022 Medication List Documented (1159F) [facility] 03[place]2022 Medication List Documented (1159F) [facility]/2022 Medication List Documented (1159F) [facility]/2022 Medication List Documented (1159F) [facility], [place] 03/02/2022 Rheumatoid arthritis without rheumatoid factor, unspecified siteMajor depressive disorder, recurrent, severe with psychotic symptomsImmunodeficiency due to conditions classified elsewhereAnxiety disorder, unspecifiedHyperlipidemia, unspecifiedDizziness and giddinessInsomnia, unspecified Immunizations Vaccine Date Status Influenza, brand unknown 2022-02-25 Complet e Vital Signs Date of Collection Vitals 2022-03-02 12:26:22 Height - 160.02 cmWe ight - 72.12 kgBody Mass Index (BMI) - 28.17 kg/m2 Social History Social History Social History Observation Description Effec tive Time Current Smoking Status Current every day smoker 2024-06-22 Sex Female History of Procedures Procedures Service Procedure code Service date Servicing provider Phone# Medication List Documented (1159F) 1159F 2022-03-02 No Data Available No Data Janneth ilable Medication Review by prescribing provider or pharmacist documented (1160F) 1160F 2022-03-02 No Data Available No Data Janneth ilable Functional Status Assessed (1170F) 1170F 2022-03-02 No Data Available No Data Avail able Advance Care Directive Advance care planning discussion documented in the medical record (1158F) 1158F 2022-03-02 No Data Available No Data Availa ble BMI obtained (3008F) 3008F 2022-03-02 No Data Availab le No Data Available New patient, 30-44min 1 stable chronic or 2 minor; add modifier 95 for video, modifier 93 for phone [id number] 2022-03-02 No Data Available No Data Available Functional Status Functional Category Effective Dates Cognition Status: Oriented to Person, Pl sheldon and Time 2022-03-02 ADL Eating: Independent; Amb ulation: Independent-- has a cane; Dressing: Some Help Needed; Bathing: Some Help Needed; Toileting: Independent 2022-03-02 Falls in last 6 Months: Yes- 01/29 d/t v ertigo 2022-03-02 IADL Shopping: total assist; Housekeeping: total assist; Meal Prep: some assistance; Medications Management: Independent 2022-03-02 Mental Status No Information Assessments Date of Service Assessments 2022-03-02 12:26:22 Rheumatoid arthritis without rheumatoid factor, unspecified siteHyperlipemiaMajor depressive disorder, recurrent, severe with psychotic symptomsAnxietyVertigoInsomniaImmunodeficiency due to conditions classified elsewhere Plan of Care Date of Service Plans 2022-03-02 12:26:22 Pain Assessment - NO pain documented (1126F)Medication Review by prescribing provider or pharmacist documented (1160F)Medication List Documented (1159F)Functional Status Assessed (1170F)Advance Care Directive Advance care planning discussion documented in the medical record (1158F)BMI obtained (3008F)Pain Assessment - Pain Documented (1125F)Televideo new patient, 30-44min 1 stable chronic or 2 minor; add modifier 95Continue to see PCP. [facility] for any acute or disease education needs that may arise.On OlumiantHydroxychloroquineNaproxenOn AtorvastatinOn CitalopramDiscussed drug-drug interaction with Naproxen- The risk of upper gastrointestinal bleeding may be increasedOn ClonazepamOn MeclizineOn MelatoninOn Hydroxychloroquine Goals Date Goal 2022-03-02 Remember to 2022-03-02 Call me if 2022-03-02 Keep it up Health Concerns Date Concern 2022-03-02 Visit completed by juan carlos nascimento and video using Digital Guardian Tablet. Introductory visit with Armando to establish care. Today, patient has chief complaint of: establishing care. Time with PT- 30 mins 2022-03-02 Most recent hospital stay(s) or ER visit(s) and precipitating factors: 0 2022-03-02 Advance care planrebeca reese discussion. Conversation today with: Amanda Damon
--- OUTSIDE RECORDS SUMMARY | 2024-06-22 11:28 | XMS_ITS | Clinical Summary ---
Author Organization [employer] [facility] Address [address] [facility] 7t [place] [address] Care Team Providers Care Provider Education Specialist Name Role Phone Unavailable Primary Care Provider Unavailabl e Allergies Active Allergy Reactions Criticality Noted Date Comments Anti-Oxidant Hives 10/14/2023 Medications acetaminophen (Tylenol) 500 MG tablet Take 1 tablet (500 mg) by mouth every 6 (six) hours if needed for mild pain for up to 20 doses. 20 tablet 10/14/2023 Active ibuprofen 600 MG tablet Take 1 tablet (600 mg) by mouth every 6 (six) hours if needed for mild pain for up to 20 doses. 20 tablet 10/14/2023 Active atorvastatin (Lipitor) 10 MG tablet Take 1 tablet by mouth Once per day. Active citalopram (CeleXA) 20 MG tablet 03/11/2023 Active clonazePAM (KlonoPIN) 0.5 MG tablet 02/08/2023 Active Active Problems Problem Noted Date Diagnosed Date Dental calculus 06/21/2024 Generalized gingival recession 06/21/2024 Localized periodontitis 10/14/2023 Encounters Date Type Department Care Team Description 06/21/2024 11:00 AM EST Office Visit [facility] [address] [place] [address] Tomeka Batista Localized periodontitis (Primary Dx); Dental calculus; Generalized gingival recession from Last 3 Months Immunizations Name Administration Dates Next Due Influenza High-dose Quadrivalent Preservative Fr ee 03/10/2023,02/25/2022 Influenza Injectable Quadriv alant Preservative Free IIV4 MDCK 03/27/2021 Influenza Quadrivalent Adjuvanted 01/31/2020 Influenza, High Dose Seasonal, Preservative Free 02/27/2019 Influenza, seasonal, injectable, preservative fr ee 04/09/2021 Moderna Covid-19 Vaccine 12+ 09/23/2020 Pfizer Covid-19 Vaccine 12+ 09/16/2020 Pneumococcal Conjugate PCV 13 05/30/2016 Pneumococcal Polysaccharide PPSV23 03/31/2022 Zoster, Recombinant 02/09/2023,03/31/2022 Social History Tobacco Use Types Packs/Day Years Used Date Smoking Tobacco: Every Day Cigarettes Passive Smoke Exposure: Never Smokeless Tobacco: Former Tobacco Cessation:Ready to Q uit: Not Asked; Counseling Given: Not Answered Alcohol Use Standard Drinks/Week Comments Defer 0 (1 standard drink = 0.6 oz pur e alcohol) Comments Unknown Sex and Gender Information Value Date Recorded Sex Assigned at Female 03/09/2022 10:15 AM EDT Legal Sex Female 10:15 AM EDT Gender Identity Female 03/09/2022 10:15 AM EDT Sexual Orientation Straight 03/09/2022 10 :15 AM EDT Last Filed Vital Signs Vital Sign Reading Time Taken Comments Blood Pressure 130/76 06/21/2024 11:13 AM EST Pulse - - Temperature - - Respiratory Rate - - Oxygen Saturation - - Inhaled Oxygen Concentration - - Weight - - Height - - Body Mass Index - - Plan of Treatment Upcoming Encounters Date Type Department Care Team (Late st Contact Info) Description 12/26/2024 10:00 AM EDT Office Visit [facility] [address] [place] [address] Lynne, Tomeka [address] [place] [address] Health Maintenance Due Date Last Done Comments Depression Screening 1945 Lipid Panel 1945 SDOH Screening 1945 Alcohol/Substance Use Screening 1959 Hepatitis C Screening 07/15/1965 DTaP/Tdap/Td Vaccines (1 - Tdap) 07/15/1966 RSV Patients and Patients Aged 60 years or older (1 - 1-dose 75+ series) 07/15/2022 COVID-19 Vaccine ( season) 2024 02/25/2022, 04/10/2021, 09/23/2020, Additional history exists Influenza Vaccine (#1) 2024 3, 02/25/2022, 04/09/2021, Additional history exists Dental Oral Exam 06/18/2024 12/16/2023, , 09/06/2018, Additional history exists Dental X-Ray: Bitewings 12/16/2024 12/16/19 24, 11/26/2021, 09/06/2018, Additional history exists Dental Prophylaxis 12/20/2024 06/21/2024, 0 12/16/2023, 11/26/2021, Additional history exists Tobacco Screening 06/21/2025 06/21/2024 Dental X-Ray: Full Mouth 10/14/2026 024, 11/26/2021, 01/24/2015 Pneumococcal Vaccine: 50+ Years Completed 03/31/2022, 05/30/2016 Zoster Vaccines Completed 02/09/2023, 03/31/2022 HIB Vaccines Aged Out No longer eligi ble based on patient's age to complete this topic HPV Vaccines Aged Out No longer eligi ble based on patient's age to complete this topic Hepatitis A Vaccines Aged Out No long er eligible based on patient's age to complete this topic Hepatitis B Vaccines Aged Out No long er eligible based on patient's age to complete this topic IPV Vaccines Aged Out No longer eligi ble based on patient's age to complete this topic Meningococcal Vaccine Aged Out No juan antonio enrique eligible based on patient's age to complete this topic RSV under 20 months Aged Out No longe r eligible based on patient's age to complete this topic Rotavirus Vaccines Aged Out No longer eligible based on patient's age to complete this topic Procedures Procedure Name Priority Date/Time Associated Diagnosis Comments TOPICAL APPLICATION OF FLUORIDE VARNISH Routine 06/21/2024 11:00 AM EST Localized periodontitis CASE PRESENTATION, DETAILED AND EXTENSIVE TREATMENT PLANNING Routine 06/21/2024 11:00 AM EST Localized periodontitis ORAL HYGIENE INSTRUCTIONS Routine 06/21/2024 11:00 AM EST Localized periodontitis PROPHYLAXIS - ADULT Routine 06/21/2024 1 1:00 AM EST Dental calculus BITEWINGS - 4 RADIOGRAPHIC IMAGES Routine 12/16/2023 8:00 AM EDT PERIODIC ORAL EVALUATION - ESTABLISHED PATIENT Routine 12/16/2023 8:00 AM EDT PANORAMIC RADIOGRAPHIC IMAGE Routine 10/14/2023 11:30 AM EDT from Last 3 Months or Most Recently Relevant to Health Maintenance Insurance [place] [employer] [facility]
--- OUTSIDE RECORDS SUMMARY | 2024-06-22 11:28 | XMS_ITS | Encounter Summary ---
Author Organization [facility] Address [address] [facility] 7t [place] [address] Care Team Providers Care Electronic Installer Name Role Phone Unavailable Primary Care Provider Unavailabl e Encounter Details Date Type Department Care Team (Latest Contact Info) Description 11/26/2021 Abstract [facility] CONVERSIONS Dental, Provider, DDS Social History Tobacco Use Types Packs/Day Years Used Date Smoking Tobacco: Never Assessed Comments Unknown Sex and Gender Information Value Date Recorded Sex Assigned at Female 03/09/2022 10:15 AM EDT Legal Sex Female 10:15 AM EDT Gender Identity Female 03/09/2022 10:15 AM EDT Sexual Orientation Straight 03/09/2022 10 :15 AM EDT documented as of this encounter Plan of Treatment Upcoming Encounters Date Type Department Care Team (Late st Contact Info) Description 12/26/2024 10:00 AM EDT Office Visit [facility]ULT [facility] [address] [place] [address] Sherman Btaistaaris [address] [place] [address] documented as of this encounter Visit Diagnoses Not on filedocumented in this encounter
--- OUTSIDE RECORDS SUMMARY | 2024-06-22 11:28 | XMS_ITS | Encounter Summary ---
Author Organization [employer] [facility] Address [address] [facility] [address]t [place] [address] Care Team Providers Care Physician Recruiter Name Role Phone Unavailable Primary Care Provider Unavailabl e Reason for Visit * Reason Comments Routine Cleaning Encounter Details Date Type Department Care Team (Latest Contact Info) Description 06/21/2024 11:00 AM EST Office Visit [facility] [address] [place] [address] Tomeka Batista [address] [place] [address] Localized periodontitis (Primary Dx); Dental calculus; Generalized gingival recession Social History Tobacco Use Types Packs/Day Years Used Date Smoking Tobacco: Every Day Cigarettes Passive Smoke Exposure: Never Smokeless Tobacco: Former Alcohol Use Standard Drinks/Week Comments Defer 0 (1 standard drink = 0.6 oz pur e alcohol) Comments Unknown Sex and Gender Information Value Date Recorded Sex Assigned at Female 03/09/2022 10:15 AM EDT Legal Sex Female 10:15 AM EDT Gender Identity Female 03/09/2022 10:15 AM EDT Sexual Orientation Straight 03/09/2022 10 :15 AM EDT documented as of this encounter Last Filed Vital Signs Vital Sign Reading Time Taken Comments Blood Pressure 130/76 06/21/2024 11:13 AM EST Pulse - - Temperature - - Respiratory Rate - - Oxygen Saturation - - Inhaled Oxygen Concentration - - Weight - - Height - - Body Mass Index - - documented in this encounter Progress Notes * Tomeka Batista - 06/21/2024 11:00 AM EST Patient ID: Amanda Damon is a 78 y.o. female. Time Out: Timeout Date: 06/21/24, Timeout Time: 1121 (Prophy, fluoride) Location: [facility] Tooth: Maxilla and Mandible Procedure: Prophylaxis Verified the above with patient, technical administrative assistant, and provider. Confirmed via patient's chart, intraorally and by radiographs. Tank Assembler: not applicable Medical Hx: Vitals: Blood pressure 130/76. Medications, Med Hx reviewed with patient and updated in chart. Treatment Provided Dental procedures in this visit D1110 - PROPHYLAXIS - ADULT (Completed) Service provider: Tomeka Batista Billing provider: Robbie Catherine DDS D1330 - ORAL HYGIENE INSTRUCTIONS (Completed) Service provider: Tomeka Batista Billing provider: Robbie Catherine DDS D9450 - ADJUNCTIVE GENERAL SERVICES - PROFESSIONAL VISITS - CASE PRESENTATION, SUBSEQUENT TO DETAILED AND EXTENSIVE TREATMENT PLANNING (Completed) Service provider: Tomeka Batista Billhanh provider: Robbie Catherine DDS D1206 - TOPICAL APPLICATION OF FLUORIDE VARNISH (Completed) Service provider: Tomeka Batista Billing provider: Robbie Catherine DDS Instruments Used: Ultrasonic Scalers and Prophy angle Fluoride: 5% NaF varnish applied and POI given Oral Cancer Screening: No lesions Head/Neck Exam: No Lesions Calculus: Light and Moderate Plaque: Light Stain: Light Bleeding: Light Gingiva: Recession- generalized and pink OH: Fair Perio Chart: not due yet Oral hygiene instructions provided to patient including brushing technique and flossing. Recommendations: [place] two times daily, modified valiente technique, Floss daily, Electric toothbrush, Soft bristle toothbrush, [place] Tongue, Anti-sensitivity toothpaste, OTC fluoride mouthwash. NV: 6 months with Lula Rojo RDH for x-rays, P. Exam, prophy and periochart Hygienist: Tomeka Batista RDH documented in this encounter Plan of Treatment Upcoming Encounters Date Type Department Care Team (Late st Contact Info) Description 12/26/2024 10:00 AM EDT Office Visit [facility]ULT [facility] [address] [place] [address] Tomeka Batista [address] [place] [address] Scheduled Orders Name Type Priority Associated Diagnoses Orde r Schedule PERIODIC ORAL EVALUATION - ESTABLISHED PATIENT Dental Routine 1 Occurren dahiana starting 06/21/2024 PROPHYLAXIS - ADULT Dental Routine 1 Occ urrences starting 06/21/2024 TOPICAL APPLICATION OF FLUORIDE VARNISH Dental Routine 1 Occurrences s tarting 06/21/2024 BITEWINGS - 4 RADIOGRAPHIC IMAGES Dental Routine 1 Occurrence s starting 06/21/2024 INTRAORAL - PERIAPICAL FIRST RADIOGRAPHIC IMAGE Dental Routine 1 Occur rences starting 06/21/2024 INTRAORAL - PERIAPICAL EACH ADDITIONAL RADIOGRAPHIC IMAGE Dental Routine 1 Occurrences starting 06/21/2024 ORAL HYGIENE INSTRUCTIONS Dental Routine 1 Occurrences starting 06/21/2024 ADJUNCTIVE GENERAL SERVICES - PROFESSIONAL VISITS - CASE PRESENTATION, SUBSEQUENT TO DETAILED AND EXTENSIVE TREATMENT PLANNING Dental Routine 1 Occurrence s starting 06/21/2024 documented as of this encounter Procedures Procedure Name Priority Date/Time Associated Diagnosis Comments TOPICAL APPLICATION OF FLUORIDE VARNISH Routine 06/21/2024 11:00 AM EST Localized periodontitis PROPHYLAXIS - ADULT Routine 06/21/2024 1 1:00 AM EST Dental calculus ORAL HYGIENE INSTRUCTIONS Routine 06/21/2024 11:00 AM EST Localized periodontitis CASE PRESENTATION, DETAILED AND EXTENSIVE TREATMENT PLANNING Routine 06/21/2024 11:00 AM EST Localized periodontitis documented in this encounter Visit Diagnoses Diagnosis Localized periodontitis- Primary Dental calculus Accretions on teeth Generalized gingival recession Gingival recession, generalized documented in this encounter
== END 2024-06-22 11:56 | disposition home or self-care (01) ==
LOC: HO.RHE 10:46
PROVIDERS: PCP Internal Medicine; Visit Provider Student in an Organized Health Care Education/Training Program
DX: M06.09 Rheumatoid arthritis without rheumatoid factor, multiple sites (principal); M85.80 Other specified disorders of bone density and structure, unspecified site; M70.51 Other bursitis of knee, right knee; M70.52 Other bursitis of knee, left knee; M75.51 Bursitis of right shoulder; Z79.899 Other long term (current) drug therapy
CPT/HCPCS: 20610; 99215

== ENCOUNTER 2024-06-22 10:46 | Outpatient (REF) | payer OTHER, SELFPAY ==
--- NOTE | ~2024-06-22 | XR_ITS ---
CLINICAL HISTORY: M06.00 - Rheumatoid arthritis without rheumatoid factor, unspecified site 4 view left hand Comparison: 01/05/2022 Findings: No fractures or dislocations. Are arthritic/degenerative changes in the proximal and middle carpal rows with subchondral distal radial lesion, possible incidental subchondral cyst. No erosions. No radiopaque foreign body. IMPRESSION: 1. No acute findings This document has been electronically signed by: Steve Rob MD on 06/23/2024 05:52:20
--- NOTE | ~2024-06-22 | XR_ITS ---
CLINICAL HISTORY: M06.00 - Rheumatoid arthritis without rheumatoid factor, unspecified site 4 view right hand Comparison: 01/05/2022 Findings: Bones intact. No dislocations. There are degenerative/arthritic changes in the radioulnar articulation, and carpal bones. No erosions. No radiopaque foreign body. IMPRESSION: 1. No acute findings This document has been electronically signed by: Steve Rob MD on 06/23/2024 05:19:37
--- OUTSIDE RECORDS SUMMARY | 2024-06-22 12:24 | XMS_ITS | Encounter Summary ---
Author Organization [employer] [facility] Address [address] [facility] 7t [place] [address] Care Team Providers Care Traffic Incident Management Manager Name Role Phone Unavailable Primary Care Provider Unavailabl e Encounter Details Date Type Department Care Team (Latest Contact Info) Description 11/26/2021 Abstract [facility] CONVERSIONS Dental, Provider, DDS Social History [...] Description 12/26/2024 10:00 AM EDT Office Visit [facility] ADULT DENT[facility] [address] [place] [address] Sherman Batistaaris [address] [place] [address] documented as of this encounter Visit Diagnoses Not on filedocumented in this encounter
--- OUTSIDE RECORDS SUMMARY | 2024-06-22 12:24 | XMS_ITS ---
Author Name Clau Ochoa NP Address [address] [place] [address] Phone [phone] [facility] Care Team Providers Care Grease Monkey Name Role Phone Clau Ochoa Unavailable [phone] Unavailable Unavailable Unavailable JUANA PRIEST Unavailable [phone] Reason for Referral Not Available Allergies, adverse [...] Service Diagnosis/Co mplaint Medication List Documented (1159F) [facility] 03[place]02/2022 Medication List Documented (1159F) [facility]2022 Medication List Documented (1159F) [facility]/02/2022 Medication List Documented (1159F) [facility]/02/2022 Medication List Documented (1159F) [facility]/02/2022 Medication List Documented (1159F) [facility]/02/2022 Rheumatoid arthritis without rheumatoid factor, [...] 95 for video, modifier 93 for phone [id number] 2022-03-02 No Data Available No Data Available [...] modifier 95Continue to see PCP. Follow-up with CeceAlgentis as needed for any acute or disease education needs that may arise.On OlumiantHydroxychloroquineNaproxenOn AtorvastatinOn CitalopramDiscussed drug-drug interaction with Naproxen- The risk of upper gastrointestinal bleeding may be increasedOn ClonazepamOn MeclizineOn MelatoninOn Hydroxychloroquine Goals Date Goal 2022-03-02 Remember to 2022-03-02 Call me if 2022-03-02 Keep it up Health Concerns Date Concern 2022-03-02 Visit completed by juan carlos nascimento and video using [employer] Tablet. Introductory visit with Armando to establish care. Today, patient has chief complaint of: establishing care. Time with PT- 30 mins 2022-03-02 Most recent hospital stay(s) or ER visit(s) and precipitating factors: 0 2022-03-02 Advance care planrebeca reese discussion. Conversation today with: Amanda Damon
--- OUTSIDE RECORDS SUMMARY | 2024-06-22 12:24 | XMS_ITS | Clinical Summary ---
Author Organization [employer] [facility] Address [address] [facility] 7t [place] [address] Care Team Providers Care Dental Front Office Assistant Name Role Phone Unavailable Primary Care Provider [...] Description 06/21/2024 11:00 AM EST Office Visit [facility] [address] [place] [address] Tomeka Batista Localized periodontitis (Primary Dx); Dental [...] Description 12/26/2024 10:00 AM EDT Office Visit [facility] [address] [place] [address] Lynne, Tomeka [address] [place] [address] Health Maintenance Due Date Last Done Comments [...] to Health Maintenance Insurance [place] [employer] [facility] [facility]
--- OUTSIDE RECORDS SUMMARY | 2024-06-22 12:24 | XMS_ITS | Encounter Summary ---
Author Organization [employer] [facility] Address [address] [facility] 7t [place] [address] Care Team Providers Care Residential Program Worker Name Role Phone Unavailable Primary Care Provider Unavailabl e Reason for Visit * Reason Comments Routine Cleaning Encounter Details Date Type Department Care Team (Latest Contact Info) Description 06/21/2024 11:00 AM EST Office Visit [facility] [address] [place] [address] Tomeka Batista [address] [place] [address] Localized periodontitis (Primary Dx); Dental calculus; Generalized [...] Procedure: Prophylaxis Verified the above with patient, housekeeping assistant, and provider. Confirmed via patient's chart, intraorally and by radiographs. Bowling Alley Manager: not applicable Medical Hx: Vitals: Blood pressure [...] patient including brushing technique and flossing. Recommendations: [place] two times daily, modified valiente technique, Floss daily, Electric toothbrush, Soft bristle toothbrush, [place] Tongue, Anti-sensitivity toothpaste, OTC fluoride mouthwash. NV: 6 months with Lula Rojo RDH for x-rays, P. Exam, prophy and periochart Hygienist: Tomeka Batista RDH documented in this encounter Plan of Treatment Upcoming Encounters Date Type Department Care Team (Late st Contact Info) Description 12/26/2024 10:00 AM EDT Office Visit [facility] [address] [place] [address] Tomeka Batista [address] [place] [address] Scheduled Orders Name Type Priority Associated Diagnoses [...]
== END 2024-06-22 10:47 | disposition home or self-care (01) ==
LOC: HO.XRAY 10:46
PROVIDERS: PCP Internal Medicine; Visit Provider Student in an Organized Health Care Education/Training Program
DX: M06.00 Rheumatoid arthritis without rheumatoid factor, unspecified site (principal); M75.51 Bursitis of right shoulder; M85.80 Other specified disorders of bone density and structure, unspecified site; M70.52 Other bursitis of knee, left knee; Z79.899 Other long term (current) drug therapy
CPT/HCPCS: 20610; 73110; 73130; 99212; J3300

== ENCOUNTER → 2024-06-22 12:09 | Outpatient (BNV) | payer OTHER, SELFPAY | PROVIDERS: PCP Internal Medicine; Visit Provider Specialist | DX: M06.041 Rheumatoid arthritis without rheumatoid factor, right hand (principal); M06.042 Rheumatoid arthritis without rheumatoid factor, left hand | CPT/HCPCS: 73130 ==

== ENCOUNTER 2024-07-07 10:06 | Outpatient (REF) | payer OTHER, SELFPAY ==
[2024-07-07 10:26] LABS: MANUAL DIFF FLAG NO
[2024-07-07 10:40] LABS: Basophils Absolute Auto 0.1 X10*3/uL (0.0-0.2); Basophils Percent Auto 0.7 % (0-2); Eosinophils Percent Auto 0.4 % (0-4); Hematocrit 41.6 % (37.0-47.0); Hemoglobin 13.8 g/dl (12.0-16.0); Imm Gran Abs Auto 0.04 X10*3/uL (0.00-0.03); Imm Gran Pct Auto 0.6 % (0.0-0.4); Lymphocytes Percent Auto 27.6 % (20-40); Mean Corpuscular HGB Conc 33.2 g/dl (31.0-35.0); Mean Corpuscular Hemoglobin 30.1 pg (27.0-33.0); Mean Corpuscular Volume 90.8 fL (80.0-98.0); Mean Platelet Volume 10.2 fL (9.4-12.3); Monocytes Absolute Auto 0.7 X10*3/uL (0.1-1.2); Monocytes Percent Auto 9.7 % (2-11); Neutrophils Absolute Auto 4.4 x10*3/uL (2.0-8.3); Platelet Count 280 X10*3/uL (160-400); Red Blood Count 4.58 X10*6/uL (4.20-5.50); Red Cell Distribution Width 13.5 % (11.0-16.0); White Blood Count 7.1 X10*3/uL (4.8-10.8)
--- OUTSIDE RECORDS SUMMARY | 2024-07-07 11:14 | XMS_ITS | Encounter Summary ---
Author Organization [employer] [facility] Address [address] [facility] [address]t [place] [address] Care Team Providers Care Livestock Judging Coach Name Role Phone Unavailable Primary Care Provider Unavailabl e Encounter Details Date Type Department Care Team (Latest Contact Info) Description 11/26/2021 Abstract [facility] CONVERSIONS Dental, Provider, DDS Social History Tobacco [...] Description 12/26/2024 10:00 AM EDT Office Visit [facility] ADULT DENTAL [address] [place] [address] Sherman Batistaaris [address] [place] [address] documented as of this encounter Visit Diagnoses Not on filedocumented in this encounter
--- OUTSIDE RECORDS SUMMARY | 2024-07-07 11:14 | XMS_ITS ---
Author Name Clau Ochoa NP Address [address] [place] [address] Phone [phone] [facility] Care Team Providers Care Credit Collection Associate Name Role Phone Clau Ochoa Unavailable [phone] Unavailable Unavailable Unavailable JUANA PRIEST Unavailable [phone] Reason for Referral Not Available Allergies, adverse [...] Service Diagnosis/Co mplaint Medication List Documented (1159F) [facility] 03/02/2022 Medication List Documented (1159F) [facility] 03[place]02/2022 Medication List Documented (1159F) [facility]/02/2022 Medication List Documented (1159F) [facility] 03/02/2022 Medication List Documented (1159F) [facility] 03/02/2022 Medication List Documented (1159F) [facility] 03/02/2022 Rheumatoid arthritis without [...] Current Smoking Status Current every day smoker 2024-07-07 Sex Female History of Procedures Procedures Service [...] 95 for video, modifier 93 for phone [id number] 2022-03-02 No Data Available No Data Available [...] modifier 95Continue to see PCP. Follow-up with CeceRyonet as needed for any acute or disease education needs that may arise.On OlumiantHydroxychloroquineNaproxenOn AtorvastatinOn CitalopramDiscussed drug-drug interaction with Naproxen- The risk of upper gastrointestinal bleeding may be increasedOn ClonazepamOn MeclizineOn MelatoninOn Hydroxychloroquine Goals Date Goal 2022-03-02 Remember to 2022-03-02 Call me if 2022-03-02 Keep it up Health Concerns Date Concern 2022-03-02 Visit completed by juan carlos nascimento and video using [employer] Tablet. Introductory visit with Armando to establish care. Today, patient has chief complaint of: establishing care. Time with PT- 30 mins 2022-03-02 Most recent hospital stay(s) or ER visit(s) and precipitating factors: 0 2022-03-02 Advance care planrebeca reese discussion. Conversation today with: Amanda Damon
--- OUTSIDE RECORDS SUMMARY | 2024-07-07 11:14 | XMS_ITS | Clinical Summary ---
Author Organization [employer] [facility] Address [address] [facility] [address]t [place] [address] Care Team Providers Care Executive Office Manager Name Role Phone Unavailable Primary Care [...] Description 06/21/2024 11:00 AM EST Office Visit [facility] ADULT DENTAL [address] [place] [address] Tomeka Batista Localized periodontitis (Primary Dx); Dental [...] Description 12/26/2024 10:00 AM EDT Office Visit [facility] ADULT DENT[facility] [address] [place] [address] Lynne, Tomeka [address] [place] [address] Health Maintenance Due Date Last Done Comments [...] to Health Maintenance Insurance [place] [employer] [facility]
--- OUTSIDE RECORDS SUMMARY | 2024-07-07 11:14 | XMS_ITS | Encounter Summary ---
Author Organization [employer] [facility] Address [address] [facility] 7t [place] [address] Care Team Providers Care Travel Accommodation Inspector Name Role Phone Unavailable Primary Care Provider Unavailabl e Reason for Visit * Reason Comments Routine Cleaning Encounter Details Date Type Department Care Team (Latest Contact Info) Description 06/21/2024 11:00 AM EST Office Visit [facility] [address] [place] [address] Tomeka Batista [address] [place] [address] Localized periodontitis (Primary Dx); Dental calculus; Generalized [...] Procedure: Prophylaxis Verified the above with patient, sales assistants and salespersons, and provider. Confirmed via patient's chart, intraorally and by radiographs. Environmental Systems Coordinator: not applicable Medical Hx: Vitals: Blood pressure [...] patient including brushing technique and flossing. Recommendations: [place] two times daily, modified valiente technique, Floss daily, Electric toothbrush, Soft bristle toothbrush, [place] [address] Tongue, Anti-sensitivity toothpaste, OTC fluoride mouthwash. NV: 6 months with Lula Rojo RDH for x-rays, P. Exam, prophy and periochart Hygienist: Tomeka Batista RDH documented in this encounter Plan of Treatment Upcoming Encounters Date Type Department Care Team (Late st Contact Info) Description 12/26/2024 10:00 AM EDT Office Visit [facility] ADULT DENTAL [address] [place] [address] Tomeka Batista [address] [place] [address] Scheduled Orders Name Type Priority Associated Diagnoses [...]
[2024-07-07 11:18] LABS: Alanine Aminotransferase 24 U/L (0-31); Albumin Level 4.5 g/dL (3.5-5.0); Alkaline Phosphatase 65 U/L (39-117); Anion Gap 10 (12-20); Aspartate Amino Transferase 20 U/L (5-31); Bilirubin Total 0.6 mg/dL (0.0-1.0); Blood Urea Nitrogen 18 mg/dL (9-16); Calcium 9.8 mg/dL (8.4-10.2); Carbon Dioxide 27 mmol/L (22-29); Chloride 106 mmol/L (96-108); Estimated Glomerular Filt Rate > 60; Glucose Random 101 mg/dL (60-115); Potassium 3.7 mmol/L (3.3-5.1); Sodium 139 mmol/L (135-145); Total Protein 7.7 g/dL (6.5-8.0)
[2024-07-07 11:23] LABS: Erythrocyte Sedimentation Rate 2 MM/HR (0-20)
[2024-07-07 11:30] LABS: HBc Num1 0.09 S/CO (0.00-0.79); Hepatitis A Antibody IgM 0.19 Index (0-0.79); Hepatitis B Core Antibody Nonreactive (Nonreactive); Hepatitis B Surface Antigen Negative (Negative); ~HepC Num1 0.14 S/CO (0.00-0.79); ~Hepatitis A Antibody IgM Nonreactive (Nonreactive); ~Hepatitis B Surface Antibody REACTIVE (Nonreactive); ~Hepatitis C Antibody Nonreactive (Nonreactive)
[2024-07-09 23:43] LABS: TS Negative Control Passed; TS Panel A 1; TS Panel B 0; TS Positive Control Passed; TSpotTB Negative (Negative)
[2024-07-12 17:04] LABS: Vitamin D 25-OH, D2 <4 ng/mL; Vitamin D 25-OH, D3 34 ng/mL; Vitamin D 25-OH, Total 34 ng/mL (30-100)
== END 2024-07-07 10:07 | disposition home or self-care (01) ==
LOC: HO.LAB 10:06
PROVIDERS: PCP Internal Medicine; Visit Provider Student in an Organized Health Care Education/Training Program
DX: M06.00 Rheumatoid arthritis without rheumatoid factor, unspecified site (principal)
CPT/HCPCS: 36415; 80053; 82306; 85025; 85652; 86140; 86481; 86704; 86706; 86709; 86803; 87340

== ENCOUNTER 2024-07-14 09:30 | Outpatient (RCR) | payer OTHER, SELFPAY ==
[2024-07-14 09:30] VITALS: BP 136/74; PULSE 72; RESP 16; TEMP 36.6; O2SAT 97
[2024-07-14] MEDS: Ondansetron ODT 4 MG TAB.RAPDIS TRANSLINGU (09:38)
[2024-07-14] MEDS: Zoledronic Acid/Mannitol-Water 5 MG/100 ML PGGYBK.BTL IV (09:53)
== END 2024-07-14 10:14 | disposition home or self-care (01) ==
LOC: HO.INF 09:30
PROVIDERS: Visit Provider Student in an Organized Health Care Education/Training Program
DX: M81.0 Age-related osteoporosis without current pathological fracture (principal)
CPT/HCPCS: 96374; J3489

== ENCOUNTER 2024-07-27 10:06 | Outpatient (REF) | payer OTHER, SELFPAY ==
--- NOTE | ~2024-07-27 | MM_ITS ---
EXAMINATION: DXA BONE DENSITY AXIAL HISTORY: Estrogen deficiency TECHNIQUE: Strolby Dual energy absorptiometry (DEXA) of the lumbar spine, total left hip, and femoral neck was performed. COMPARISON: Comparison is made with the prior examination dated 04/16/2022. FINDINGS: The bone mineral density of the lumbar spine is 1.178 with a T-score of 0.0, and a Z-score of 1.5. This is indicative of normal bone mineral density. This represents a BMD change of 5.8% compared to the prior exam. This is statistically significant. The bone mineral density of the left total hip is 0.871 with a T-score of -1.1, and a Z-score of 0.5. This is indicative of osteopenia. This represents a BMD change of 3.8% compared to the prior exam. This is not statistically significant. The bone mineral density of the left femoral neck is 0.793 with a T-score of -1.8, and a Z-score of 0.0. This is indicative of osteopenia. This represents a BMD change of 3.7% compared to the prior exam. MM/XR DEXA axial skeleton IMPRESSION: Based on bone mineral density, and according to World Health Organization (WHO) criteria, the diagnosis is consistent with osteopenia. All bone density values are in grams per centimeter squared (g/cm2). Statistically, 68% of repeat scans fall within 1 SD (+/- 0.010 g/cm2 for AP spine L1-L4) and 1 SD (+/- 0.012 g/cm2 for femur total) FRAX is a trademark of the [employer], a World Health Organization (WHO) Collaborating Center. Electronically signed by: Kenji Pelaez MD 07/27/2024 11:33 AM EDT
--- OUTSIDE RECORDS SUMMARY | 2024-07-27 11:22 | XMS_ITS ---
Author Name [employer] Organization Unknown Care Team Organization Name Specialty Phone Email Start Date End Alessio byers [facility] 03/16/2023 03/16/2023
--- OUTSIDE RECORDS SUMMARY | 2024-07-27 11:22 | XMS_ITS | Clinical Summary ---
Author Organization [facility] Address [address] [facility] [facility] [address] [place] [address] Care Team Providers Care Dietitian Research Name Role Phone Unavailable Primary Care Provider [...] Description 06/21/2024 11:00 AM EST Office Visit [facility] [address] [place] [address] Tomeka Batista Localized periodontitis (Primary Dx); Dental [...] Description 12/26/2024 10:00 AM EDT Office Visit [facility] [address] [place] [address] Lynne, Tomeka [address] [place] [address] Health Maintenance Due Date Last Done Comments [...] to Health Maintenance Insurance [facility]
--- OUTSIDE RECORDS SUMMARY | 2024-07-27 11:22 | XMS_ITS ---
Author Name Clau Ochoa NP Address [address] [place] [address] Phone [phone] [facility] Care Team Providers Care Piston Maker Name Role Phone Clau Ochoa Unavailable [phone] JUANA PRIEST Unavailable [phone] Reason for Referral Not Available Allergies, adverse [...] Service Diagnosis/Co mplaint Medication List Documented (1159F) [facility] Medication List Documented (1159F) [facility] Medication List Documented (1159F) [facility] Medication List Documented (1159F) [facility] Medication List Documented (1159F) [facility]20[place] Medication List Documented (1159F) [facility]20[place] Rheumatoid arthritis without rheumatoid factor, [...] Current Smoking Status Current every day smoker 2024-07-27 Sex Female History of Procedures Procedures Service [...] 95 for video, modifier 93 for phone [id number] 2022-03-02 No Data Available No Data Available [...] modifier 95Continue to see PCP. Follow-up with [facility] as needed for any acute or disease education needs that may arise.On OlumiantHydroxychloroquineNaproxenOn AtorvastatinOn CitalopramDiscussed drug-drug interaction with Naproxen- The risk of upper gastrointestinal bleeding may be increasedOn ClonazepamOn MeclizineOn MelatoninOn Hydroxychloroquine Goals Date Goal 2022-03-02 Remember to 2022-03-02 Call me if 2022-03-02 Keep it up Health Concerns Date Concern 2022-03-02 Visit completed by juan carlos nascimento and video using [employer] Tablet. Introductory visit with Armando to establish care. Today, patient has chief complaint of: establishing care. Time with PT- 30 mins 2022-03-02 Most recent hospital stay(s) or ER visit(s) and precipitating factors: 0 2022-03-02 Advance care planrebeca reese discussion. Conversation today with: Amanda Damon
--- OUTSIDE RECORDS SUMMARY | 2024-07-27 11:22 | XMS_ITS | Encounter Summary ---
Author Organization [facility] Address [address] [facility] [address] [place] [address] Care Team Providers Care Bun Icer Name Role Phone Unavailable Primary Care Provider Unavailabl e Encounter Details Date Type Department Care Team (Latest Contact Info) Description 11/26/2021 Abstract [facility] CONVERSIONS Dental, Provider, DDS Social [...] Description 12/26/2024 10:00 AM EDT Office Visit [facility]ULT [facility] [address] [place] [address] Sherman Batistaaris [address] [place] [address] documented as of this encounter Visit Diagnoses Not on filedocumented in this encounter
== END 2024-07-27 10:07 | disposition home or self-care (01) ==
LOC: HO.MAMMO 10:06
PROVIDERS: PCP Internal Medicine; Visit Provider Student in an Organized Health Care Education/Training Program
DX: Z13.820 Encounter for screening for osteoporosis (principal); M85.88 Other specified disorders of bone density and structure, other site
CPT/HCPCS: 77080

== ENCOUNTER → 2024-07-27 11:00 | Outpatient (BNV) | payer OTHER, SELFPAY | PROVIDERS: PCP Internal Medicine; Visit Provider Radiology Diagnostic Radiology | DX: E28.39 Other primary ovarian failure (principal) | CPT/HCPCS: 77080 ==

== ENCOUNTER 2024-09-26 11:01 | Outpatient (REF) | payer OTHER, SELFPAY ==
[2024-09-26 11:59] LABS: MANUAL DIFF FLAG NO
[2024-09-26 12:10] LABS: Basophils Absolute Auto 0.1 X10*3/uL (0.0-0.2); Basophils Percent Auto 0.7 % (0-2); Eosinophils Percent Auto 0.4 % (0-4); Hematocrit 41.7 % (37.0-47.0); Hemoglobin 13.9 g/dl (12.0-16.0); Imm Gran Abs Auto 0.03 X10*3/uL (0.00-0.03); Imm Gran Pct Auto 0.4 % (0.0-0.4); Lymphocytes Absolute Auto 2.3 X10*3/uL (1.2-4.9); Lymphocytes Percent Auto 31.1 % (20-40); Mean Corpuscular HGB Conc 33.3 g/dl (31.0-35.0); Mean Corpuscular Hemoglobin 30.5 pg (27.0-33.0); Mean Corpuscular Volume 91.4 fL (80.0-98.0); Mean Platelet Volume 10.1 fL (9.4-12.3); Monocytes Absolute Auto 0.7 X10*3/uL (0.1-1.2); Monocytes Percent Auto 9.4 % (2-11); Neutrophils Absolute Auto 4.3 x10*3/uL (2.0-8.3); Platelet Count 239 X10*3/uL (160-400); Red Blood Count 4.56 X10*6/uL (4.20-5.50); Red Cell Distribution Width 13.1 % (11.0-16.0); White Blood Count 7.4 X10*3/uL (4.8-10.8)
[2024-09-26 12:53] LABS: Erythrocyte Sedimentation Rate 4 MM/HR (0-20)
[2024-09-26 12:55] LABS: Alanine Aminotransferase 18 U/L (0-31); Albumin Level 4.5 g/dL (3.5-5.0); Alkaline Phosphatase 54 U/L (39-117); Anion Gap 10 (12-20); Aspartate Amino Transferase 20 U/L (5-31); Bilirubin Total 0.6 mg/dL (0.0-1.0); Blood Urea Nitrogen 13 mg/dL (9-16); C Reactive Protein 0.13 mg/dL (< or = 0.50); Calcium 9.5 mg/dL (8.4-10.2); Carbon Dioxide 27 mmol/L (22-29); Chloride 106 mmol/L (96-108); Estimated Glomerular Filt Rate > 60; Glucose Random 85 mg/dL (60-115); Sodium 139 mmol/L (135-145); Total Protein 7.3 g/dL (6.5-8.0)
--- OUTSIDE RECORDS SUMMARY | 2024-09-26 12:57 | XMS_ITS | Encounter Summary ---
Author Organization [facility] Address [address] [place] [address] Care Team Providers Care Milieu Manager Name Role Phone Unavailable Primary Care Provider Unavailabl e Encounter Details Date Type Department Care Team (Latest Contact Info) Description 11/26/2021 Abstract [facility] CONVERSIONS Dental, Provider, DDS Social History [...] Description 12/26/2024 10:00 AM EDT Office Visit [facility]ULT [facility] [address] [place] [address] Lynne, Tomeka [address] [place] [address] documented as of this encounter Visit Diagnoses Not on filedocumented in this encounter
--- OUTSIDE RECORDS SUMMARY | 2024-09-26 12:57 | XMS_ITS ---
Author Name Clau Ochoa NP Address [address] [place] [address] Phone [phone] [facility] Care Team Providers Care Commercial Cleaner Name Role Phone Clau Ochoa Unavailable [phone] JUANA PRIEST Unavailable [phone] Reason for Referral Not Available Allergies, adverse [...] Service Diagnosis/Co mplaint Medication List Documented (1159F) [facility] Medication List Documented (1159F) [facility] Medication List Documented (1159F) [facility] Medication List Documented (1159F) [facility] Medication List Documented (1159F) [facility] Medication List Documented (1159F) [facility] Rheumatoid arthritis without [...] 95 for video, modifier 93 for phone [id number] 2022-03-02 No Data Available No Data Available [...] modifier 95Continue to see PCP. Follow-up with [facility] as needed for any acute or disease education needs that may arise.On OlumiantHydroxychloroquineNaproxenOn AtorvastatinOn CitalopramDiscussed drug-drug interaction with Naproxen- The risk of upper gastrointestinal bleeding may be increasedOn ClonazepamOn MeclizineOn MelatoninOn Hydroxychloroquine Goals Date Goal 2022-03-02 Remember to 2022-03-02 Call me if 2022-03-02 Keep it up Health Concerns Date Concern 2022-03-02 Visit completed by juan carlos nascimento and video using [employer] Tablet. Introductory visit with Armando to establish care. Today, patient has chief complaint of: establishing care. Time with PT- 30 mins 2022-03-02 Most recent hospital stay(s) or ER visit(s) and precipitating factors: 0 2022-03-02 Advance care planrebeca reese discussion. Conversation today with: Amanda Damon
--- OUTSIDE RECORDS SUMMARY | 2024-09-26 12:57 | XMS_ITS | Clinical Summary ---
Author Organization [facility] [facility] Address [address] [place] [address] Care Team Providers Care Airplane Dispatch Clerk Name Role Phone Unavailable Primary Care Provider [...] Description 12/26/2024 10:00 AM EDT Office Visit [facility] [address] [place] [address] Lynne, Tomeka [address] [place] [address] Health Maintenance Due Date Last Done Comments [...] Most Recently Relevant to Health Maintenance Insurance [facility] STANDARD DENTAL - [facility]
[2024-09-30 17:28] LABS: Vitamin D 25-OH, D2 <4 ng/mL; Vitamin D 25-OH, D3 43 ng/mL; Vitamin D 25-OH, Total 43 ng/mL (30-100)
== END 2024-09-26 11:02 | disposition home or self-care (01) ==
LOC: HO.LAB 11:01
PROVIDERS: PCP Internal Medicine; Visit Provider Student in an Organized Health Care Education/Training Program
DX: M06.00 Rheumatoid arthritis without rheumatoid factor, unspecified site (principal); E55.9 Vitamin D deficiency, unspecified
CPT/HCPCS: 36415; 80053; 82306; 85025; 85652; 86140; 99212

== ENCOUNTER 2024-09-26 11:01 | Outpatient (AMB) | payer OTHER, SELFPAY ==
--- NOTE | 2024-09-26 11:04 | MHC.OFFVIS ---
Vital Signs 09/26/24 11:08 Height 5 ft 3 in Weight 164 lb 3.91 oz BMI 29.1 BP 134/80 Blood Pressure Location Lt brachial Position Sitting Respiration 16 Pulse 67 Pulse Source Pulse Oximeter Pulse Oximetry (%) 97 Oxygen Delivery Method Room Air Intake Visit Reasons: RA Intake Note: Patient presents for RA follow up. Entrepreneurship Program Director Required: Yes Entrepreneurship Program Director Language: Magneto Specialist Services: Entrepreneurship Program Director Present Entrepreneurship Program Director Name: Alex Oliva [phone] Information Interpreted: non-clinical & clinical Allergies alendronate sodium Allergy (Verified 09/26/24 11:07) Vomiting sarilumab [From Kevzara] Allergy (Verified 09/26/24 11:07) injection site reaction tocilizumab [From Actemra] Allergy (Verified 09/26/24 11:07) injection site reaction fruits Allergy (Mild, Uncoded 09/02/23 09:57) itchy mouth and throat Medication List - Last Reconciled 09/26/24 by Kelly Olguin MD atorvastatin 10 mg PO BEDTIME cholecalciferol (vitamin D3) 25 mcg PO BID citalopram 40 mg PO DAILY clonazepam 0.5 mg PO TID diphenhydramine HCl (Banophen) 25 mg PO BEDTIME docusate sodium 100 mg PO BEDTIME famotidine 40 mg PO DAILY hydroxychloroquine 200 mg PO BID lidocaine 5% 1 patch topical DAILY meclizine 12.5 mg PO QID PRN melatonin 5 mg PO BEDTIME multivitamin (Daily Vitamin Formula tablet) 1 tab PO DAILY triamcinolone acetonide 0.5% appl topical HPI Comments Details: Patient is a 78-year-old female with hyperlipidemia, depression, polyarticular osteoarthritis, osteopenia with high fracture risk and seronegative rheumatoid arthritis here today for follow up Interval History: Patient last seen 06/22/2024 with me. At that time she was following up for her polyarticular osteoarthritis, osteopenia with high fracture is and seronegative rheumatoid arthritis. She was on Plaquenil monotherapy and doing well after self discontinuing her Olumiant due to side effects. She was complaining of right shoulder pain which she received a steroid injection for. She also had bilateral pes anserine bursitis which exercises were given. The plan was to continue to monitor on Plaquenil monotherapy Today, She reports improvement in her right shoulder pain after the injection and also improvement in her bursitis with rest and ice. Last ophthalmology appt 1 year No new complaints today Rheumatologic History: seroneg erosive Humira: prior to 2016 Enbrel: 2016 Methotrexate: 2015 Sulfasalazine: 11/2011- 03/2018 Arava: 05/2011- 07/2018 Xeljanz: 01/2018-07/2018 Plaquenil: 06/2017 previously caused dizziness, restarted on Plaqueni - present Kevzara: 09/2017 initially did well, but caused an injection site reaction Actemra: 09/2018- initially did well, experienced injection site reactions.? Rinvoq: initially did well, stopped due to nausea, vomiting, abdominal pain Olumiant pt. preferred oral medication 01/2021- 05/2024 stopped secondary to nausea, vomiting Current Rheumatology Medication(s): Plaquenil 200mg bid PFSH Medical History (Updated 09/26/24 @ 11:21 by Kelly Olguin MD) assisted (current) use of janus kinase inhibitor Osteopenia with high risk of fracture Panic attack Anxiety Fibrocystic breast disease Tension headache Microscopic hematuria History of abnormal Pap smear Denial Osteoarthritis Hyperlipemia Osteopenia Depression Rheumatoid arthritis Surgical History Hx of colonoscopy Family History Mother Rheumatoid arthritis Father CVD (cardiovascular disease) Social History (Updated 09/26/24 @ 11:08 by SHANNAN Hall) Household Members: Family Housing: Apartment Alcohol intake: never Patient Tobacco Use Status: Current someday Tobacco user Cigarettes Per Day: 2 Years Smoked: 30 Review of Systems Const Details: Review of Systems Constitutional: Denies fever, chills, weight loss ENT: Denies vision changes, eye pain or eye redness, dental caries, dry mouth GI: Denies nausea, vomiting, diarrhea, abdominal pain, change in BM Pulm: Denies SOB, JARRETT, hemoptysis, wheezing Cards: Denies chest pain, palpitations Skin: Denies Raynaud's, rash, nail changes, photosensitivity, STONE DRILLER HELPER: Denies headaches, weakness, paresthesias, recurrent falls MSK: as per HPI All other systems reviewed and are unremarkable except noted above Physical Exam Vital Signs: Last Vital Signs Pulse 67 09/26/24 11:08 Resp 16 09/26/24 11:08 BP 134/80 09/26/24 11:08 Pulse Ox 97 09/26/24 11:08 Oxygen Delivery Method Room Air 09/26/24 11:08 BMI result Body Mass Index 29.1 Vital signs reviewed Physical Examination CONSTITUITIONAL Patient alert and cooperative. Well appearing and in no apparent painful distress HEENT Conjunctiva and sclera clear. ?Pupils equal round and reactive to light. ?No lymphadenopathy. ? CHEST/RESPIRATORY SYSTEM Normal respiratory effort and able to speak in complete sentences. ?Clear to auscultation bilaterally. ?No crackles, rales, rhonchi, wheezes heard. CARDIAC SYSTEM Regular rate and rhythm. ?S1 and S2 heard no murmurs. ?Radial pulses intact bilaterally MSK Hands: ?Able to make a fist. No synovitis noted to the MCPs, PIPs or DIPs. ?No tenderness to palpation of these joints. No deformities noted. ? Wrists: ?Full range of motion at the wrists without pain. ?No tenderness to palpation or synovitis noted to the wrists. Elbows: Full range of motion without pain. No tenderness, weakness, swelling, increased warmth or erythema. Shoulders: Full range of active range of motion without pain. No tenderness, weakness, swelling, increased warmth or erythema. Hips: Full range of motion without pain. Hip bursa: No tenderness to palpation Knees: ?Full range of motion. ?No tenderness, swelling, increased warmth or erythema.?No effusion. Crepitations felt Ankles: Full range of motion. ?No tenderness, swelling, increased warmth or erythema.? Feet: ?Negative squeeze test. ?No tenderness to palpation or swelling of the MTPs. Tender points:?No tenderness to palpation of the bilateral trapezius, supraspinatus, greater trochanters, anterior costochondral junctions, bilateral gluteal areas, bilateral suboccipital muscle insertions SKIN Skin intact without rashes. Results Reviewed Results Reviewed: Laboratory Tests 07/07/24 10:24 WBC 7.1 RBC 4.58 Hgb 13.8 Hct 41.6 Plt Count 280 ESR 2 Sodium 139 Potassium 3.7 Chloride 106 Carbon Dioxide 27 BUN 18 H Creatinine 0.84 AST 20 ALT 24 C-Reactive Protein 0.10 25-OH Vitamin D Total 34 Infectious labs 07/07/24 10:24 Hepatitis A IgM Ab Nonreactive Hep Bs Antigen Negative Hep Bs Antibody REACTIVE Hep B Core Total Ab Nonreactive Hepatitis C Ab (EIA) Nonreactive TB Test (T-Spot) Com Negative DEXA 07/2024 FINDINGS: The bone mineral density of the lumbar spine is 1.178 with a T-score of 0.0, and a Z-score of 1.5. This is indicative of normal bone mineral density. This represents a BMD change of 5.8% compared to the prior exam. This is statistically significant. The bone mineral density of the left total hip is 0.871 with a T-score of -1.1, and a Z-score of 0.5. This is indicative of osteopenia. This represents a BMD change of 3.8% compared to the prior exam. This is not statistically significant. The bone mineral density of the left femoral neck is 0.793 with a T-score of -1.8, and a Z-score of 0.0. This is indicative of osteopenia. This represents a BMD change of 3.7% compared to the prior exam. Assessment & Plan Assessment & Plan (1) Seronegative rheumatoid arthritis: Comment: seroneg erosive Humira: prior to 2015 Enbrel: 2016 Methotrexate: 2016 Sulfasalazine: 11/2011- 03/2018 Arava: 05/2011- 07/2018 Xeljanz: 01/2018-07/2018 Plaquenil: 06/2017 previously caused dizziness, restarted on Plaqueni - present Kevzara: 09/2017 initially did well, but caused an injection site reaction Actemra: 09/2018- initially did well, experienced injection site reactions.? Rinvoq: initially did well, stopped due to nausea, vomiting, abdominal pain Olumiant pt. preferred oral medication 01/2021- 04/2024. initially did well but stopped d/t Vomiting Code(s): M06.00 - Rheumatoid arthritis without rheumatoid factor, unspecified site Category: Medical Plan: #Seronegative erosive RA Patient is a 78-year-old female with seronegative erosive rheumatoid arthritis. Currently in remission on plaquenil monotherapy. Plan - Plaquenil 400mg daily - Monitor off additional medication - Labs today: CBC, CMP, ESR, CRP - RTC 6 months - Labs before visit: CBC, CMP, ESR, CRP (2) Osteopenia with high risk of fracture: Comment: DEXA 07/2024: AP Spine 0, Left femur neck -1.8, Left femur total -1.1 DEXA 04/2022: AP Spine -0.6, Left femur neck -2.0, Left femur total -1.3 Alendronate: June 2022-took 3 doses, did not tolerate N/V. Reclast 05/2023 uneventful Code(s): M85.80 - Other specified disorders of bone density and structure, unspecified site Category: Medical Plan: #Osteopenia Patient with osteopenia and high FRAX index Currently on Reclast infusions, DEXA with improved T scores Plan - IV Reclast infusion 5mg yearly - Will reeval bone density in 2027 and make a decision about going on drug holiday at that time - Check Vitamin D (3) Long-term use of hydroxychloroquine: Code(s): Z79.899 - Other mcfp (current) drug therapy Category: Medical Plan: #Long-term Use of Hydroxychloroquine Discussed with patient the risks and benefits of hydroxychloroquine in managing the rheumatic condition Benefits include: - Reduced pain, reduce mortality, maintenance of remission and reduction of flares Risks include: - GI upset, skin hyperpigmentation, retinal toxicity (especially after more than 5 years of use), myopathy Advised yearly ophthalmology visits. Referral placed Plan I spent 31 minutes reviewing the record and labs, taking a history, examining the patient, discussing the treatment plan and documenting in the medical record Orders: Orders Comprehensive Met. Panel Today M06.00 - Rheumatoid arthritis without rheumatoid factor, unspecified site Erythrocyte Sedimentation Rate Today M06.00 - Rheumatoid arthritis without rheumatoid factor, unspecified site Vitamin D 25-OH (D2 and D3) Today E55.9 - Vitamin D deficiency, unspecified Complete Blood Count Auto Diff Today M06.00 - Rheumatoid arthritis without rheumatoid factor, unspecified site C Reactive Protein Today M06.00 - Rheumatoid arthritis without rheumatoid factor, unspecified site Referrals Ophthalmology Referral M06.00 - Rheumatoid arthritis without rheumatoid factor, unspecified site, Z79.899 - Other mcfp (current) drug therapy Medications: Changed From hydroxychloroquine 200 mg PO BID 60 tabs 4RF M06.00 - Rheumatoid arthritis without rheumatoid factor, unspecified site To hydroxychloroquine 200 mg PO BID 90 days 180 tabs 1RF M06.00 - Rheumatoid arthritis without rheumatoid factor, unspecified site Refilled cholecalciferol (vitamin D3) 25 mcg PO BID 60 tabs 5RF E55.9 - Vitamin D deficiency, unspecified Coding Level of Care Code Est Pt Level 4 (11435) Complex EM visit Add On G2211 Diagnoses Seronegative rheumatoid arthritis M06.00 Osteopenia with high risk of fracture M85.80 Long-term use of hydroxychloroquine Z79.899
[2024-09-26 11:08] VITALS: BP 134/80; PULSE 67; RESP 16; O2SAT 97; BMI 29.1
--- OUTSIDE RECORDS SUMMARY | 2024-09-26 12:19 | XMS_ITS | Encounter Summary ---
Author Organization [facility] Address [address] [place] [address] Care Team Providers Care Yeast Tender Name Role Phone Unavailable Primary Care Provider Unavailabl e Encounter Details Date Type Department Care Team (Latest Contact Info) Description 11/26/2021 Abstract [facility] CONVERSIONS Dental, Provider, DDS Social History [...] Description 12/26/2024 10:00 AM EDT Office Visit [facility]ULT [facility] [address] [place] [address] Lynne, Tomeka [address] [place] [address] documented as of this encounter Visit Diagnoses Not on filedocumented in this encounter
--- OUTSIDE RECORDS SUMMARY | 2024-09-26 12:19 | XMS_ITS | Clinical Summary ---
Author Organization [facility] [employer] [facility] Address [address] [place] [address] Care Team Providers Care Seconds Inspector Name Role Phone Unavailable Primary Care [...] Generalized gingival recession 06/21/2024 Localized periodontitis 10/14/2023 Immunizations Immunization Administration Dates Next Due Influenza High-dose Quadrivalent [...] Description 12/26/2024 10:00 AM EDT Office Visit [facility]ULT [facility] [address] [place] [address] Lynne, Tomeka [address] [place] [address] Health Maintenance Due Date Last Done Comments Depression Screening 1945 Lipid Panel 1945 SDOH Screening 1945 Alcohol/Substance Use Screening 1959 Hepatitis C Screening 07/15/1965 DTaP/Tdap/Td Vaccines (1 - Tdap) 07/15/1966 RSV Patients and Patients Aged 60 years or older (1 - 1-dose 75+ series) 07/15/2022 COVID-19 Vaccine ( season) 2024 02/25/2022, 04/10/2021, 09/23/2020, Additional history exists Influenza Vaccine (#1) 2024 , 02/25/2022, 04/09/2021, Additional history exists Dental Oral [...] patient's age to complete this topic Meningococcal B Vaccine Aged Out No l onger eligible based on patient's age to complete [...] Procedure Name Priority Date/Time Associated Diagnosis Comments PROPHYLAXIS - ADULT Routine 06/21/2024 1 1:00 AM EST Dental calculus BITEWINGS - 4 RADIOGRAPHIC IMAGES Routine 12/16/2023 8:00 AM EDT PERIODIC ORAL EVALUATION - ESTABLISHED PATIENT Routine 12/16/2023 8:00 AM EDT PANORAMIC RADIOGRAPHIC IMAGE Routine 10/14/2023 11:30 AM EDT from Last 3 Months or Most Recently Relevant to Health Maintenance Insurance [facility] ST[facility] DENT[facility] - [facility]
--- OUTSIDE RECORDS SUMMARY | 2024-09-26 12:19 | XMS_ITS ---
Author Name Clau Ochoa NP Address [address] [place] [address] Phone [phone] [facility] Care Team Providers Care Sketch Maker Name Role Phone Clau Ochoa Unavailable [phone] JUANA PRIEST Unavailable [phone] Reason for Referral Not Available Allergies, adverse [...] Service Diagnosis/Co mplaint Medication List Documented (1159F) [facility] Medication List Documented (1159F) [facility] Medication List Documented (1159F) [facility] Medication List Documented (1159F) [facility] Medication List Documented (1159F) [facility] Medication List Documented (1159F) [facility] Rheumatoid arthritis without [...] Current Smoking Status Current every day smoker 2024-09-26 Sex Female History of Procedures Procedures Service [...] 95 for video, modifier 93 for phone [id number] 2022-03-02 No Data Available No Data Available [...] modifier 95Continue to see PCP. Follow-up with [facility] as needed for any acute or disease education needs that may arise.On OlumiantHydroxychloroquineNaproxenOn AtorvastatinOn CitalopramDiscussed drug-drug interaction with Naproxen- The risk of upper gastrointestinal bleeding may be increasedOn ClonazepamOn MeclizineOn MelatoninOn Hydroxychloroquine Goals Date Goal 2022-03-02 Remember to 2022-03-02 Call me if 2022-03-02 Keep it up Health Concerns Date Concern 2022-03-02 Visit completed by juan carlos nascimento and video using [employer] Tablet. Introductory visit with Armando to establish care. Today, patient has chief complaint of: establishing care. Time with PT- 30 mins 2022-03-02 Most recent hospital stay(s) or ER visit(s) and precipitating factors: 0 2022-03-02 Advance care planrebeca reese discussion. Conversation today with: Amanda Damon
== END 2024-09-26 11:37 | disposition home or self-care (01) ==
LOC: HO.RHE 11:01
PROVIDERS: PCP Internal Medicine; Visit Provider Student in an Organized Health Care Education/Training Program
DX: M06.09 Rheumatoid arthritis without rheumatoid factor, multiple sites (principal); M85.80 Other specified disorders of bone density and structure, unspecified site; Z79.899 Other long term (current) drug therapy
CPT/HCPCS: 99214; G2211

== ENCOUNTER 2024-10-20 10:51 | Outpatient (REF) | payer OTHER, SELFPAY ==
--- OUTSIDE RECORDS SUMMARY | 2024-10-20 11:55 | XMS_ITS ---
Author Name Clau Ochoa NP Address [address] [place] [address] Phone [phone] [facility] Care Team Providers Care Promotions Manager Name Role Phone Clau Ochoa Unavailable [phone] JUANA PRIEST Unavailable [phone] Reason for Referral Not Available Allergies, adverse [...] List Problem Status Onset Date Resolved Date Synopsis Hyperlipemia Active 2022-02-07 4 N/A On Atorvastatin Anxiety Active 2022-02-08 4 N/A On Clonazepam Major depressive disorder, recurrent, severe with psychotic symptoms Active 2022-02-07 4 N/A On CitalopramDiscussed drug- drug interaction with Naproxen- The risk of upper gastrointestinal bleeding may be increased Vertigo Active 2022-02-08 4 N/A On Meclizine Insomnia Active 2022-02-08 4 N/A On Melatonin Rheumatoid arthritis without rheumatoid factor, unspecified site Active 2022-02-07 4 N/A On OlumiantHydroxychloroquin eNaproxen Immunodeficiency due to conditions classified elsewhere Active 2022-02-08 5 N/A On Hydroxychloroquine Encounters Encounters Type Facility Date of Service Diagnosis/Co mplaint Medication List Documented (1159F) [facility] Medication List Documented (1159F) [facility] Medication List Documented (1159F) [facility] Medication List Documented (1159F) [facility]20[place] Medication List Documented (1159F) [facility] Medication List Documented (1159F) [facility] Rheumatoid arthritis without [...] Current Smoking Status Current every day smoker 2024-10-20 Sex Female History of Procedures Procedures Service [...] 95 for video, modifier 93 for phone [phone] No Data Available No Data Available [...] modifier 95Continue to see PCP. Follow-up with [facility] as needed for any acute or disease education needs that may arise.On OlumiantHydroxychloroquineNaproxenOn AtorvastatinOn CitalopramDiscussed drug-drug interaction with Naproxen- The risk of upper gastrointestinal bleeding may be increasedOn ClonazepamOn MeclizineOn MelatoninOn Hydroxychloroquine Goals Date Goal 2022-03-02 Remember to 2022-03-02 Call me if 2022-03-02 Keep it up Health Concerns Date Concern 2022-03-02 Visit completed by a azam and video using [employer] Tablet. Introductory visit with [employer] to establish care. Today, patient has chief complaint of: establishing care. Time with PT- 30 mins 2022-03-02 Most recent hospital stay(s) or ER visit(s) and precipitating factors: 0 2022-03-02 Advance care planrebeca reese discussion. Conversation today with: Amanda Damon
== END 2024-10-20 10:52 | disposition home or self-care (01) ==
LOC: HO.MAMMO 10:51
PROVIDERS: PCP Internal Medicine; Visit Provider Internal Medicine
DX: Z13.89 Encounter for screening for other disorder (principal)

== ENCOUNTER 2024-11-20 08:15 | Outpatient (REF) | payer OTHER, SELFPAY ==
--- NOTE | ~2024-11-20 | US_ITS ---
EXAMINATION: MM DIAGNOSTIC DIGITAL BREAST TOMOSYNTHESIS, BILATERAL CLINICAL INFORMATION: Left breast pain for one year. COMPARISON: Mammography: Comparison is made with relevant prior exams. TECHNIQUE: Digital breast mammography with tomosynthesis is performed in both the craniocaudal and mediolateral oblique views along with computer-aided detection (CAD). FINDINGS: There are scattered areas of fibroglandular density (ACR BI-RADS breast composition Category b). Triangular marker denoting site of left breast pain in the upper outer quadrant without underlying abnormality. There are no significant masses, abnormal calcifications, or other abnormalities. Targeted color Doppler ultrasound scanning in the area of the patient's pain from 11-4 o'clock demonstrates normal fibroglandular breast tissue. There is no sonographic abnormal finding. Results are provided to the patient at time of visit by the technologist. US/US breast LT limited mamm only IMPRESSION: Right: Negative. Left: No mammographic or sonographic abnormal findings to account for the patient's left breast pain. Recommend clinical evaluation and follow-up. ASSESSMENT: BI-RADS BI-RADS 1 - Negative RECOMMENDATION: 1 year F/U This patient's information was entered into a reminder system with a target due date for their next mammogram. Electronically signed by: Mitra Cooper DO 11/20/2024 09:18 AM EDT
--- OUTSIDE RECORDS SUMMARY | 2024-11-20 08:18 | XMS_ITS | Patient Health Record ---
Author Organization [facility] Address [address] [place] [address] Care Team Providers Care Chemical Inspector Name Role Phone Snehal Read Primary Care Provider Unavailab Rey Penn Jr Unavailable Reason For Referral No Information Medications Medication SIG (Take, Route, Frequency, Duration) Notes Start Date End Date Status Calcium + D Active Colyte with Flavor Packs 240 GM As directed Orally Over the specified time. for 1 day(s) 03/30/2013 05/10/2024 Active Zolpidem Tartrate Ac tive LORazepam Active Aspir-81 81mg Active Problems Problem Type SNOMED Code ICD Code Onset Dates Problem Status W/U Status Risk Notes Problem Colon cancer screening (539372888) Colon cancer screening (V76.51) Active confirmed Problem Current use of aspirin (V58.66) Active confirmed Plan Of Treatment Future Test Test Name Order Date COLONOSCOPY 03/30/2013 Insurance Providers Payer Name Payer Address Payer Phone Subscriber Number Group Number Insured Name Patient Relationship to Insured Coverage Start Date Coverage End Date MEDICARE OF [place] [address] [place] [id number] MIKE DALTONNIKOLAS Self - patient is the insured MEDICAID OF [facility] [address] [place] [address] [id number] DALTONMIKE HIRSCHNIKOLAS Self - patient is the insured Medical (General) History Medical History History ICD Code colonoscopy 07-08-2001 colon polyps osteoporosis benign breast lump Denies [place],DM,CVA,Lung disease,renal dise ase Surgical History Surgery Date(Month/Year) tubal ligation
--- OUTSIDE RECORDS SUMMARY | 2024-11-20 08:18 | XMS_ITS ---
Author Name Clau Ochoa NP Address [address] [place] [address] Phone [phone] [facility] Care Team Providers Care Ostomy Rn Name Role Phone Clau Ochoa Unavailable [phone] JUANA PRIEST Unavailable [phone] Reason for Referral Not Available Allergies, adverse [...] Service Diagnosis/Co mplaint Medication List Documented (1159F) [facility] Medication List Documented (1159F[place] [facility] Medication List Documented (1159F[place] [facility] Medication List Documented (1159F[place] [facility] Medication List Documented (1159F[place] [facility] Medication List Documented (1159F) [facility]2022 Rheumatoid arthritis without rheumatoid factor, [...] Current Smoking Status Current every day smoker 2024-11-20 Sex Female History of Procedures Procedures Service [...] 95 for video, modifier 93 for phone [id number] 2022-03-02 No Data Available No Data Available [...] completed by a azam and video using [employer] Tablet. Introductory visit with [employer] to establish care. Today, patient has chief complaint of: establishing care. Time with PT- 30 mins 2022-03-02 Most recent hospital stay(s) or ER visit(s) and precipitating factors: 0 2022-03-02 Advance care planrebeca reese discussion. Conversation today with: Amanda Damon
--- OUTSIDE RECORDS SUMMARY | 2024-11-20 08:19 | XMS_ITS | Clinical Summary ---
Author Organization [facility] Address [address] 7[address] [place] [address] Care Team Providers Care Trial Attorney Name Role Phone Unavailable Primary Care Provider [...] Description 12/26/2024 10:00 AM EDT Office Visit [facility] ADULT D[facility]AL [address] [place] [address] Lynne, Tomeka [address] [place] [address] Health Maintenance Due Date Last Done Comments Depression Screening 1945 Lipid Panel 1945 SDOH Screening 1945 Alcohol/Substance Use Screening 1959 Hepatitis C Screening 07/15/1965 DTaP/Tdap/Td Vaccines (1 - Tdap) 07/15/1966 RSV Patients and Patients Aged 60 years or older (1 - 1-dose 75+ series) 07/15/2022 COVID-19 Vaccine ( season) 2024 02/25/2022, 04/10/2021, 09/23/2020, Additional history exists Dental Oral Exam 06/18/2024 12/16/2023, , 09/06/2018, Additional history exists Dental X-Ray: Bitewings 12/16/2024 12/16/19 24, 11/26/2021, 09/06/2018, Additional history exists Dental Prophylaxis 12/20/2024 06/21/2024, 0 12/16/2023, 11/26/2021, Additional history exists Influenza Vaccine (#1) 2025 , 02/25/2022, 04/09/2021, Additional history exists Tobacco Screening 06/21/2025 06/21/2024 [...] Most Recently Relevant to Health Maintenance Insurance [facility] STANDARD [facility] - [facility]
--- OUTSIDE RECORDS SUMMARY | 2024-11-20 08:19 | XMS_ITS ---
[facility] Name [facility] Organization Unknown Care Team Organization Name Specialty Phone Email Start Date End Alessio byers [facility] 03/16/2023 03/16/2023
== END 2024-11-20 08:16 | disposition home or self-care (01) ==
LOC: HO.MAMMO 08:15
PROVIDERS: PCP Internal Medicine; Visit Provider Internal Medicine
DX: N64.4 Mastodynia (principal)
CPT/HCPCS: 76642; 77062; 77066

== ENCOUNTER → 2024-11-20 08:30 | Outpatient (BNV) | payer OTHER, SELFPAY | PROVIDERS: PCP Internal Medicine; Visit Provider Internal Medicine | DX: N64.4 Mastodynia (principal) | CPT/HCPCS: 77066; G0279 ==

== ENCOUNTER 2025-01-25 10:43 | Outpatient (REF) | payer OTHER, SELFPAY ==
--- NOTE | ~2025-01-25 | XR_ITS ---
EXAMINATION: XR RIBS, LEFT CLINICAL INFORMATION: Pain COMPARISON: January 28, 2023 TECHNIQUE: PA view chest. Oblique views left hemithorax. FINDINGS: No consolidation, pleural effusion or pneumothorax. Pulmonary reticular pattern. No hyperinflation. Cardiomediastinal silhouette size is normal. Multilevel mid to lower spondylosis. S-shaped curvature of the thoracolumbar spine. Skin BB marker in the left lower hemithorax. No acute cortical disruption within the ribs and specifically adjacent to the skin BB marker. XR/XR ribs LT min 3V w CXR1V IMPRESSION: No gross acute displaced rib fracture, left hemithorax. No acute airspace disease. Chronic interstitial lung disease in the correct clinical settings. Electronically signed by: Lemuel Moran MD 01/25/2025 11:54 AM EDT
--- OUTSIDE RECORDS SUMMARY | 2025-01-25 12:52 | XMS_ITS | Clinical Summary ---
Author Organization [employer] Address [address] [place] [address] Care Team Providers Care Personal Computer Network Engineer Name Role Phone Unavailable Primary Care Provider [...] Problems Problem Noted Date Diagnosed Date Dental plaque 12/26/2024 Periodontal disease 12/26/2024 Missing teeth, acquired 12/26/2024 Dental calculus 06/21/2024 Generalized gingival recession 06/21/2024 Localized periodontitis 10/14/2023 Encounters Date Type Department Care Team Description 12/26/2024 10:00 AM EDT Office Visit [facility] ADULT DENTAL [address] [place] [address] Tomeka Batista Generalized gingival recession (Primary Dx); Dental plaque; Periodontal disease; Missing teeth, acquired from Last 3 Months Immunizations Immunization Administration Dates Next Due Influenza [...] Sign Reading Time Taken Comments Blood Pressure 124/72 12/26/2024 10:06 AM EDT Pulse - - Temperature - - Respiratory Rate - - Oxygen Saturation - - Inhaled Oxygen Concentration - - Weight - - Height - - Body Mass Index - - Plan of Treatment Upcoming Encounters Date Type Department Care Team (Late st Contact Info) Description 03/02/2025 10:30 AM EDT Office Visit [facility] ADULT DENTAL [address] [place] [address] Boubacar Leija DDS [address] [place] [address] Health Maintenance Due Date Last Done Comments Depression Screening 1945 Lipid Panel 1945 SDOH Screening 1947 Alcohol/Substance Use Screening 1959 Hepatitis C Screening 07/15/1965 DTaP/Tdap/Td Vaccines (1 - Tdap) 07/15/1966 RSV Patients and Patients Aged 60 years or older (1 - 1-dose 75+ series) 07/15/2022 COVID-19 Vaccine (2024- season) 2025 02/25/2022, 04/10/2021, 09/23/2020, Additional history exists Influenza Vaccine (#1) 2025 , 02/25/2022, 04/09/2021, Additional history exists Dental Oral Exam 06/29/2025 12/26/2024, 12/2023, 11/26/2021, Additional history exists Dental Prophylaxis 06/29/2025 12/26/2024, 0 06/21/2024, 12/16/2023, Additional history exists Tobacco Screening 12/26/2025 12/26/2024 Dental X-Ray: Bitewings 12/27/2025 12/27/19 25, 12/16/2023, 11/26/2021, Additional history exists Dental X-Ray: Full Mouth 10/14/2026 024, 11/26/2021, [...] Procedure Name Priority Date/Time Associated Diagnosis Comments COMPREHENSIVE PERIODONTAL EVALUATION - NEW OR ESTABLISHED PATIENT Routine 12/26/2024 10:00 AM EDT PERIODIC ORAL EVALUATION - ESTABLISHED PATIENT Routine 12/26/2024 10:00 AM EDT CASE PRESENTATION, DETAILED AND EXTENSIVE TREATMENT PLANNING Routine 12/26/2024 10:00 AM EDT Generalized gingival recession Dental plaque Periodontal disease Missing teeth, acquired ORAL HYGIENE INSTRUCTIONS Routine 2024 10:00 AM EDT Generalized gingival recession Dental plaque Periodontal disease Missing teeth, acquired INTRAORAL - PERIAPICAL EACH ADDITIONAL RADIOGRAPHIC IMAGE Routine 12/26/2024 10:00 AM EDT Generalized gingival recession Dental plaque Periodontal disease Missing teeth, acquired INTRAORAL - PERIAPICAL FIRST RADIOGRAPHIC IMAGE Routine 12/26/2024 10:00 AM EDT Generalized gingival recession Dental plaque Periodontal disease Missing teeth, acquired BITEWINGS - 4 RADIOGRAPHIC IMAGES Routine 12/26/2024 10:00 AM EDT Generalized gingival recession Dental plaque Periodontal disease Missing teeth, acquired TOPICAL APPLICATION OF FLUORIDE VARNISH Routine 12/26/2024 10:00 AM EDT Generalized gingival recession Dental plaque Periodontal disease Missing teeth, acquired PROPHYLAXIS - ADULT Routine 12/26/2024 1 0:00 AM EDT Generalized gingival recession Dental plaque Periodontal disease Missing teeth, acquired PANORAMIC RADIOGRAPHIC IMAGE Routine 10/14/2023 11:30 AM EDT from Last 3 Months or Most Recently Relevant to Health Maintenance [facility]
--- OUTSIDE RECORDS SUMMARY | 2025-01-25 12:52 | XMS_ITS | Encounter Summary ---
Author Organization [employer] Address [address] [place] [address] Care Team Providers Care Mold Maker Plastic Molds Name Role Phone Unavailable Primary Care Provider Unavailabl e Encounter Details Date Type Department Care Team (Latest Contact Info) Description 11/26/2021 Abstract [facility] CONVERSIONS Dental, Provider, DDS Social History Tobacco [...] Description 03/02/2025 10:30 AM EDT Office Visit [facility] ADULT DENTAL [address] [place] [address] Boubacar Leija, DDS [address] [place] [address] documented as of this encounter Visit Diagnoses Not on filedocumented in this encounter
== END 2025-01-25 10:44 | disposition home or self-care (01) ==
LOC: HO.XRAY 10:43
PROVIDERS: PCP Internal Medicine; Visit Provider Internal Medicine
DX: R07.81 Pleurodynia (principal)
CPT/HCPCS: 71101

== ENCOUNTER → 2025-01-25 11:39 | Outpatient (BNV) | payer OTHER, SELFPAY | PROVIDERS: PCP Internal Medicine; Visit Provider Radiology Diagnostic Radiology | DX: J84.9 Interstitial pulmonary disease, unspecified (principal) | CPT/HCPCS: 71101 ==

== ENCOUNTER 2025-02-16 10:41 | Outpatient (REF) | payer OTHER, SELFPAY ==
[2025-02-16 12:17] LABS: Alanine Aminotransferase 13 U/L (0-31); Albumin Level 4.5 g/dL (3.5-5.0); Alkaline Phosphatase 69 U/L (39-117); Anion Gap 11 (12-20); Aspartate Amino Transferase 26 U/L (5-31); Blood Urea Nitrogen 10 mg/dL (9-16); Calcium 9.4 mg/dL (8.4-10.2); Carbon Dioxide 26 mmol/L (22-29); Chloride 106 mmol/L (96-108); Cholesterol 136 mg/dL (<200); Estimated Glomerular Filt Rate > 60; HDL Cholesterol 53 mg/dL (>40); Potassium 3.9 mmol/L (3.3-5.1); Sodium 139 mmol/L (135-145); Total Protein 7.0 g/dL (6.5-8.0); Triglycerides 151 mg/dL (<150)
[2025-02-19 11:18] LABS: TS Negative Control Passed; TS Panel A 1; TS Panel B 0; TS Positive Control Passed; TSpotTB Negative (Negative)
== END 2025-02-16 10:42 | disposition home or self-care (01) ==
LOC: HO.LAB 10:41
PROVIDERS: PCP Internal Medicine; Visit Provider Internal Medicine
DX: N64.4 Mastodynia (principal); E78.00 Pure hypercholesterolemia, unspecified; M06.9 Rheumatoid arthritis, unspecified; Z68.29 Body mass index [BMI] 29.0-29.9, adult; Z11.1 Encounter for screening for respiratory tuberculosis
CPT/HCPCS: 36415; 80053; 80061; 86481

== ENCOUNTER 2025-02-27 20:19 | Emergency (ER) | payer OTHER, SELFPAY ==
--- NOTE | ~2025-02-27 | CT_ITS ---
CLINICAL HISTORY: fall headstrike CT cervical spine without contrast Comparison: None Findings: There is straightening of the normal cervical lordosis. No fracture or acute malalignment. Multilevel degenerative changes with disc space narrowing throughout the cervical spine. The facet joints are normally imbricated. No prevertebral soft tissue edema. Lung apices demonstrate no acute process. Impression: Multilevel degenerative changes without evidence of acute fracture or acute malalignment. This document has been electronically signed by: Rodolfo Batres MD on 02/27/2025 22:49:08
--- NOTE | ~2025-02-27 | CT_ITS ---
CLINICAL HISTORY: fall headstrike CT head without contrast Comparison: MR/[place]/SR - MR BRAIN WITHOUT THEN WITH IV CONTRAST - 07/02/23 11:04 EST Findings: Tiny focus of subdura hemorrhage along the falx, axial 63 and coronal 95 No evidence of acute territorial infarct. There is patchy low density in the periventricular and subcortical white matter. Diffuse volume loss is noted. No hydrocephalus. No intraparenchymal hemorrhage, mass effect, mass lesion or midline shift. No calvarial fracture. Paranasal sinuses and mastoid air cells are clear. Impression: Tiny focus of subdural hemorrhage along the falx. Short interval follow-up recommended. This document has been electronically signed by: Rodolfo Batres MD on 02/27/2025 22:44:10
--- NOTE | 2025-02-27 20:22 | ECG_ITS ---
Test Reason : FALL Blood Pressure : */* mmHG Vent. Rate : 66 BPM Atrial Rate : 66 BPM P-R Int : 166 ms QRS Dur : 74 ms QT Int : 426 ms P-R-T Axes : 39 -6 39 degrees QTcB Int : 446 ms Normal sinus rhythm Normal ECG When compared with ECG of 03-Apr-2024 05:19, No significant change was found Referred By: Generic ED Physician Electronically Signed By: ANJUM ESPARZA MD
[2025-02-27 20:25] VITALS: BP 154/80; PULSE 64; PULSE 66; RESP 16; TEMP 36.6; O2SAT 94; O2SAT 98; BMI 27.6
[2025-02-27 20:33] VITALS: BP 157/70; PULSE 66; RESP 16; TEMP 36.6; O2SAT 98
[2025-02-27 20:38] LABS: MANUAL DIFF FLAG NO
[2025-02-27 20:39] LABS: Hematocrit 36.8 % (37.0-47.0); Hemoglobin 12.5 g/dl (12.0-16.0); Imm Gran Abs Auto 0.02 X10*3/uL (0.00-0.03); Imm Gran Pct Auto 0.3 % (0.0-0.4); Lymphocytes Absolute Auto 3.7 X10*3/uL (1.2-4.9); Mean Corpuscular HGB Conc 34.0 g/dl (31.0-35.0); Mean Corpuscular Hemoglobin 29.9 pg (27.0-33.0); Mean Corpuscular Volume 88.0 fL (80.0-98.0); NRBC Abs Auto 0.000 X10*3/uL (0.0-0.012); NRBC Pct Auto 0.0 /100WBC (0.0-0.2); Platelet Count 240 X10*3/uL (160-400); Red Blood Count 4.18 X10*6/uL (4.20-5.50); White Blood Count 7.9 X10*3/uL (4.8-10.8)
[2025-02-27 20:46] LABS: INTERNATIONAL NORM RATIO 1.0 (0.9-1.1); Prothrombin Time 11.4 SEC (10.9-12.4)
[2025-02-27 20:59] LABS: Alanine Aminotransferase 16 U/L (0-31); Albumin Level 4.3 g/dL (3.5-5.0); Alkaline Phosphatase 64 U/L (39-117); Anion Gap 8 (12-20); Aspartate Amino Transferase 20 U/L (5-31); Blood Urea Nitrogen 12 mg/dL (9-16); Calcium 8.9 mg/dL (8.4-10.2); Carbon Dioxide 26 mmol/L (22-29); Chloride 109 mmol/L (96-108); Creatinine Clr Calc Pharmacy 55.5; Estimated Glomerular Filt Rate > 60; Potassium 3.7 mmol/L (3.3-5.1); Sodium 139 mmol/L (135-145); Total Protein 6.6 g/dL (6.5-8.0)
--- OUTSIDE RECORDS SUMMARY | 2025-02-27 21:48 | XMS_ITS | Patient Health Record ---
Author Organization [facility] Address [address] [place] [address] Care Team Providers Care Inspector Pawnshop Detail Name Role Phone Snehal Read Primary Care Provider Unavailab Rey Penn Jr Unavailable Reason For Referral No Information Medications Medication SIG (Take, Route, Frequency, Duration) Notes Start Date End Date Status Calcium + D Active Colyte with Flavor Packs 240 GM As directed Orally Over the specified time.; Duration: 1 day(s) 03/30/2013 05/10/2024 Active Zolpidem Tartrate Ac tive LORazepam Active Aspir-81 81mg Active Problems Problem Type SNOMED Code ICD Code Onset Dates Problem Status W/U Status Risk Notes Problem Colon cancer screening (185625122) Colon cancer screening (V76.51) Active confirmed Problem Current use of aspirin (V58.66) Active confirmed Plan Of Treatment Future Test Test Name Order Date COLONOSCOPY 03/30/2013 Insurance Providers Payer Name Payer Address Payer Phone Subscriber Number Group Number Insured Name Patient Relationship to Insured Coverage Start Date Coverage End Date MEDICARE OF [place] [address] [place] [id number] [phone] [id number] DIONISIO DALTON Self - patient is the insured MEDICAID OF [facility] [address] [place] [address] [id number] DIONISIO DALTON Self - patient is the insured Medical (General) History Medical History History ICD Code colonoscopy 07-08-2001 colon polyps osteoporosis benign breast lump Denies [place],DM,CVA,Lung disease,renal dise ase Surgical History Surgery Date(Month/Year) tubal ligation
--- OUTSIDE RECORDS SUMMARY | 2025-02-27 21:48 | XMS_ITS ---
Author Name Clau Ochoa NP Address [address] [place] [address] Phone [phone] [facility] Care Team Providers Care Cosmetology Instructor Name Role Phone Clau Ochoa Unavailable [phone] JUANA PRIEST Unavailable [phone] Reason for Referral Not Available Allergies, adverse [...] Service Diagnosis/Co mplaint Medication List Documented (1159F) [facility]20[place] Medication List Documented (1159F) [facility]20[place] Medication List Documented (1159F) [facility]22 Medication List Documented (1159F[place] [facility]2022 Medication List Documented (1159F) [facility]/2022 Medication List Documented (1159F) [facility] 03/[place]/2022 Rheumatoid arthritis without rheumatoid [...] Current Smoking Status Current every day smoker 2025-02-28 Sex Female History of Procedures Procedures Service [...] 95 for video, modifier 93 for phone [phone] No Data Available No Data Available [...] completed by a azam and video using [employer] (formerly [employer]savers) Tablet. Introductory visit with [employer] ([employer]) to establish care. Today, patient has chief complaint of: establishing care. Time with PT- 30 mins 2022-03-02 Most recent hospital stay(s) or ER visit(s) and precipitating factors: 0 2022-03-02 Advance care planrebeca reese discussion. Conversation today with: Amanda Damon
--- OUTSIDE RECORDS SUMMARY | 2025-02-27 21:49 | XMS_ITS | Encounter Summary ---
Author Organization [employer] Address [address] [place] [address] Care Team Providers Care Mill Operator Head Name Role Phone Unavailable Primary Care Provider Unavailabl e Encounter Details Date Type Department Care Team (Latest Contact Info) Description 11/26/2021 Abstract [facility] CONVERSIONS Dental, Provider, DDS Social [...] Care Team (Late st Contact Info) Description 04/24/2025 10:30 AM EST Office Visit [facility] ADULT DENTAL [address] [place] [address] Boubacar Leija, DDS [address] [place] [address] documented as of this encounter Visit Diagnoses Not on filedocumented in this encounter
--- OUTSIDE RECORDS SUMMARY | 2025-02-27 21:49 | XMS_ITS | Clinical Summary ---
Author Organization [employer] Address [address] [facility] [address] [facility] [address]t [place] [address] Care Team Providers Care Manager Front Office Name Role Phone Unavailable Primary Care Provider [...] Description 12/26/2024 10:00 AM EDT Office Visit [facility] ADULT DENTAL [address] [place] [address] Tomeka Batista Generalized gingival recession (Primary Dx); [...] Description 04/24/2025 10:30 AM EST Office Visit [facility] ADULT DENTAL [address] [place] [address] Boubacar Leija DDS [address] [place] [address] Health Maintenance Due Date Last Done Comments [...] Most Recently Relevant to Health Maintenance Insurance [facility]
[2025-02-27 22:07] VITALS: BP 158/73; PULSE 78; RESP 16; O2SAT 97
--- NOTE | 2025-02-27 22:15 | PC.NURSE ---
Assisted patient to bedpan, urine sample collected
[2025-02-27 22:19] LABS: Appearance Urine Clear; Glucose Urine UA Negative (Negative); PH 7.0 (5.0-9.0); Specific Gravity - Urine 1.010 (1.005-1.025); UMIC TRIGGER UACC YES
[2025-02-27 22:27] LABS: UACC Culture Trigger YES
[2025-02-27 22:28] LABS: Cannabinoid Screen Urine Not Detected (Not Detect)
--- NOTE | 2025-02-27 23:02 | ED_ITS ---
HPI - Fall General Chief Complaint: Fall Stated Complaint: unwit fall 2in Lac w/ h/s, +LOC, -thinners,+collar Time Seen by Provider: 02/27/25 21:05 Source: patient, family and EMS Mode of arrival: EMS Limitations: language barrier History of Present Illness ED Provider: Dr. Vi Jha HPI Narrative: 79-year-old female with a history of dementia, rheumatoid arthritis, osteoarthritis presenting with head injury after a fall that occurred at home. Fall was unwitnessed but patient reports that she tripped and fell, falling against the wall and hitting her head against the doorframe. She has a laceration to the back of her head. She does not take blood thinners. She does admit to a slight headache in that area. Otherwise denies injury. Patient admits that there was an episode of unconsciousness but it is unclear how long she was out for. Single episode of emesis per EMS in route. Otherwise patient has been feeling well prior to the fall. Admits that she does have occasional falls. Denies associated chest pain, neck pain, difficulty breathing, abdominal pain, urinary complaints. Related Data Home Medications ?Medication ?Instructions ?Recorded ?Confirmed clonazepam 0.5 mg tablet 0.5 mg PO TID 03/10/2109/26 multivitamin (Daily Vitamin 1 tab PO DAILY 06/10/21 Formula tablet) atorvastatin 10 mg tablet 10 mg PO BEDTIME 06/11/21 meclizine 12.5 mg tablet 12.5 mg PO QID PRN Dizziness 04/06/22 09/26/24 melatonin 5 mg tablet 5 mg PO BEDTIME 08/14/22 diphenhydramine HCl 25 mg tablet 25 mg PO BEDTIME 01/0909/26/24 (Banophen) triamcinolone acetonide 0.5 % appl topical 01/28/23 topical cream citalopram 40 mg tablet 40 mg PO DAILY 05/19/2309/08 Previous Rx's ?Medication ?Instructions ?Recorded docusate sodium 100 mg capsule 100 mg PO BEDTIME #90 c aps 07/08/23 lidocaine 5 % topical patch 1 patch topical DAILY #15 ea 04/03/24 famotidine 40 mg tablet 40 mg PO DAILY #30 tabs 11/07 12/01 hydroxychloroquine 200 mg tablet 200 mg PO BID 90 days #180 tabs 11/23/24 cholecalciferol (vitamin D3) 25 25 mcg PO BID #60 tabs 02/21/25 mcg (1,000 unit) tablet Allergies Allergy/AdvReac Type Severity Reaction Status Date / Time alendronate sodium Allergy Vomiting Verified 02/27/25 20:29 sarilumab (From Kevzara) Allergy injection Verified 02/27/25 20:29 site reaction tocilizumab (From Actemra) Allergy injection Verified 02/27/25 20:29 site reaction fruits Allergy Mild itchy Uncoded 02/27/25 20:29 mouth and throat Review of Systems 2 Review of Systems: As per HPI, full review of systems performed and negative but for the above mentioned pertinent positives and negatives. 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 Osteopenia with high risk of fracture Panic attack Anxiety Fibrocystic breast disease Tension headache Microscopic hematuria History of abnormal Pap smear Denial Osteoarthritis Hyperlipemia Osteopenia Depression Rheumatoid arthritis Surgical History Hx of colonoscopy Family History Family History Mother Rheumatoid arthritis Father CVD (cardiovascular disease) Social History Social History Household Members: Family Housing: Apartment Alcohol intake: never Patient Tobacco Use Status: Current someday Tobacco user Cigarettes Per Day: 2 Years Smoked: 30 Physical Exam 2 Exam: Exam: GENERAL: Uncomfortable-Appearing, conversant, mild distress due to pain. SKIN: Normal skin color for ethnicity, warm, dry, no rashes noted. HEENT: Normocephalic, 4 cm scalp laceration at the right parieto-occipital area, no bogginess to the scalp, bleeding controlled, no stridor, airway patent, no raccoon's eyes, no Neumann sign, dentition intact, EOMI. NECK: Soft, supple, full ROM, midline structures nontender, no step-offs, no deformities, no lymphadenopathy. CHEST: Heart regular rate and rhythm, no murmurs, symmetric chest rise and fall, crepitus. PULMONARY: Clear to auscultation bilaterally, no labored breathing, no wheezes/rhales/rhonchi. ABDOMINAL: Soft, nondistended, nontender, positive bowel sounds in all quadrants. : Deferred. MUSCULOSKELETAL: Normal tone, full range of motion, no deformities, no contusions. NEURO: Alert and oriented to person, CN II through XII intact, equal strength and sensation bilateral upper and lower extremities, no focal neurologic deficits. PSYCHIATRIC: Anxious affect, fluid speech, good eye contact and appropriate demeanor. Vital Signs: Vital Signs: Last Vital Signs Temp 98.2 F 02/28/25 04:10 Pulse 66 02/28/25 04:10 Resp 14 02/28/25 04:10 BP 120/60 02/28/25 04:10 Pulse Ox 99 02/28/25 04:10 O2 Del Method Room Air 02/28/25 04:10 BMI result Body Mass Index 27.6 Medications Administered Discontinued Medications Generic Name Dose Route Start Last Admin Trade Name Freq PRN Reason Stop Dose Admin Acetaminophen 975 mg 02/27/25 23:06 02/27/25 23:43 Acetaminophen 325 Mg Tablet PO 02/27/25 23:07 975 mg ONCE ONE Administration Lidocaine/Epinephrine/Tetracaine 3 ml 02/27/25 23:03 02/27/25 23:43 Lidocaine/Racepinep/Tetracaine 3 Ml Gel.Pf.Sheldon TOPICAL 02/27/25 23:04 3 ml ONCE ONE Administration Procedures Laceration Laceration 1: Site: scalp Side (If applicable): right Size (cm): 4 Description: flap Depth: simple, single layer Local Anesthetic: other anesthetic (topical LET) Amount of anesthesia used (mL): 3 Pre-repair: wound explored, irrigated extensively and deep structures intact Skin layer closed with: johnny Number of sutures: 5 Technique: johnny Medical Decision Making Medical Decision Making MDM Narrative: Patient presents today with chief complaint of trauma. Different diagnosis on this patient includes intracranial hemorrhage, skull fracture, neck injury including fracture or spinal cord pathology. Other diagnoses considered would include chest or abdominal trauma as well as long bone fractures. Based on my physical exam, the ordered imaging modalities are indicated. The patient specifically does not show any signs of central cord syndrome as evidenced by equal strength in the upper extremities with normal two-point discrimination. Sensation is not altered. GCS is appropriate. Patient is neurovascularly intact. There are no signs of vascular emergency. No signs of shock. No respiratory distress. Patient was given Tylenol for pain control. Patient has a small subdural hemorrhage in the falx. Patient has no focal neurologic deficits and is completely coherent. Using MBIG criteria, for which she is a level 1, we will observe this patient in the emergency department for 6 hours and if she has no focal neurologic deficits, she will be stable for discharge, no further neuro imaging or workup needed. MANAGEMENT mBIG 1: * No hospital admission. * 6 hr ED observation. * No repeat head CT. * No neurosurgery consult. * Q2 neurological assessment. * Attending assessment at 6 hrs. * GCS 15 for discharge. Laceration repaired with johnny. Patient tolerated the procedure well. Plan for discharge, outpatient follow-up or return to the emergency department for staple removal in 1 week. Discussed this at length with the patient and her daughter. Patient is ambulatory in the emergency department with the assistance which is her baseline. Discussed return precautions. Discharged home in stable condition. Differential Diagnosis Differential Diagnoses: The differential diagnosis associated with the presentation includes (As above) Admission/Observation Consideration of admission/observation: Escalation of care including admission/observation considered Lab Data MDM Lab Attestation statement: I reviewed the patient's lab results. 02/27/25 20:34 02/27/25 20:34 Labs: Lab Results 02/27/25 02/27/25 Range/Units 20:34 22:13 WBC 7.9 (4.8-10.8) X10*3/uL RBC 4.18 L (4.20-5.50) X10*6/uL Hgb 12.5 (12.0-16.0) g/dl Hct 36.8 L (37.0-47.0) % MCV 88.0 (80.0-98.0) fL MCH 29.9 (27.0-33.0) pg MCHC 34.0 (31.0-35.0) g/dl RDW 13.1 (11.0-16.0) % Plt Count 240 (160-400) X10*3/uL MPV 9.6 (9.4-12.3) fL Immature Gran % (Auto) 0.3 (0.0-0.4) % Neut % (Auto) 42.4 L (45-73) % Lymph % (Auto) 46.3 H (20-40) % [place] % (Auto) 9.5 (2-11) % Eos % (Auto) 1.0 (0-4) % Baso % (Auto) 0.5 (0-2) % Lymph # (Auto) 3.7 (1.2-4.9) X10*3/uL [place] # (Auto) 0.8 (0.1-1.2) X10*3/uL Eos # (Auto) 0.1 (0.0-0.4) X10*3/uL Baso # (Auto) 0.0 (0.0-0.2) X10*3/uL Abs Immat Gran (auto) 0.02 (0.00-0.03) X10*3/uL Absolute Neuts (auto) 3.4 (2.0-8.3) x10*3/uL Absolute Nucleated RBC 0.000 (0.0-0.012) X10*3/uL Nucleated RBC % (auto) 0.0 (0.0-0.2) /100WBC PT 11.4 (10.9-12.4) SEC INR 1.0 (0.9-1.1) Sodium 139 (135-145) mmol/L Potassium 3.7 (3.3-5.1) mmol/L Chloride 109 H (96-108) mmol/L Carbon Dioxide 26 (22-29) mmol/L Anion Gap 8 L (12-20) BUN 12 (9-16) mg/dL Creatinine 0.83 (0.5-1.4) mg/dL Estim Creat Clear Calc 55.5 Estimated GFR > 60 Random Glucose 122 H (60-115) mg/dL Calcium 8.9 (8.4-10.2) mg/dL Total Bilirubin 0.2 (0.0-1.0) mg/dL AST 20 (5-31) U/L ALT 16 (0-31) U/L Alkaline Phosphatase 64 (39-117) U/L Total Protein 6.6 (6.5-8.0) g/dL Albumin 4.3 (3.5-5.0) g/dL Urine Color Yellow Urine Appearance Clear Urine pH 7.0 (5.0-9.0) Ur Specific [place] 1.010 (1.005-1.025) Urine Protein Negative (Neg-Trace) mg/dL Urine Glucose (UA) Negative (Negative) mg/dL Urine Ketones Negative (Negative) mg/dL Urine Blood Small (1+) H (Negative) Urine Nitrite Negative (Negative) Ur Leukocyte Esterase Large (3+) H (Negative) Urine RBC 0-2 (0-2) /HPF Urine WBC 6-10 (0-5) /HPF Ur Squamous Epith Cells 0-2 (0-2) /HPF Urine Bacteria None Seen (None Seen) Hyaline Casts 0-2 (0-2) /LPF Urine Opiates Screen Not Detected (Not Detect) Ur Buprenorphine Scrn Not Detected (Not Detect) ng/mL Ur Oxycodone Screen Not Detected (Not Detect) ng/mL Urine Methadone Screen Not Detected (Not Detect) ng/mL Urine Fentanyl Screen Not Detected (Not Detect) Ur Barbiturates Screen Not Detected (Not Detect) Ur Phencyclidine Scrn Not Detected (Not Detect) Ur Amphetamines Screen Not Detected (Not Detect) U Benzodiazepines Scrn Not Detected (Not Detect) Urine Cocaine Screen Not Detected (Not Detect) U Marijuana (THC) Screen Not Detected (Not Detect) Independent Interpretation I performed an independent interpretation of an: EKG Radiology Impression Discussion of test interpretation with radiology: I have reviewed the radiologist's reading. Radiologist Impression: CT cervical spine without contrast Comparison: None Findings: There is straightening of the normal cervical lordosis. No fracture or acute malalignment. Multilevel degenerative changes with disc space narrowing throughout the cervical spine. The facet joints are normally imbricated. No prevertebral soft tissue edema. Lung apices demonstrate no acute process. Impression: Multilevel degenerative changes without evidence of acute fracture or acute malalignment. CT head without contrast Comparison: MR/[place]/SR - MR BRAIN WITHOUT THEN WITH IV CONTRAST - 07/02/23 11:04 EST Findings: Tiny focus of subdura hemorrhage along the falx, axial 63 and coronal 95 No evidence of acute territorial infarct. There is patchy low density in the periventricular and subcortical white matter. Diffuse volume loss is noted. No hydrocephalus. No intraparenchymal hemorrhage, mass effect, mass lesion or midline shift. No calvarial fracture. Paranasal sinuses and mastoid air cells are clear. Impression: Tiny focus of subdural hemorrhage along the falx. Short interval follow-up recommended. Independent Historian Clinical information obtained from an independent historian. History obtained from or confirmed by: EMS and Other (Daughter) Prescription Management I considered prescription management with: Pain Medication and Other (zofran) Chronic Conditions Patient?s care impacted by: Other (dementia) Discharge Plan Discharge Clinical Impression: Unwitnessed fall, Closed head injury, Laceration of scalp, Concussion Patient Disposition: Home, Self-Care Instructions: Head Injury (ED), Staple Care (ED) Additional Instructions: Please have your johnny removed in 1 week to 10 days. You can come back to the emergency department to have this done, or alternatively you can go to a walk-in clinic or your primary care doctor's office. Return to the ER if you notice any redness tracking away from the wound, pus drainage from your wound or if you develop a fever. You hit your head pretty hard today and can expect to have signs of and symptoms of a concussion. Thankfully at this time there is no evidence of an acute emergent process that requires admission to the hospital or continued ED observation, and it is safe to discharge you home. A concussion is a bruise to your brain which may cause nausea, vomiting, headache, and difficulty concentrating/focusing. Similar to any other bruising, you must rest the injured area to prevent recurrent symptoms, reinjury, or other complications. In order to rest your brain, please avoid use of electronics such as cell phones, iPads, or TVs. Please avoid highly complex mental tasks/projects that require intense focus or concentration, and please avoid strenuous physical activity. Once your symptoms have resolved, you may slowly increase your activity level. If symptoms return please discontinue the activity which caused the recurrence of symptoms for 48 hours, before again attempting the same activity. You may not participate in any activities that are a high risk for recurrent head injury until you've returned to your baseline activity level without recurrence of your symptoms, plus one additional week. Take Tylenol as needed for headaches. Please follow up with your primary care physician for re-evaluation, additional management of your symptoms, return to activity clearance, and continued preventative care. If you do not have a primary care physician, please call the [facility] at [phone] to establish a new primary care physician. While waiting to establish your new primary care physician, you can call our Walk-in Care Clinic at [phone] for non-emergency needs. Please return to the emergency department if you develop a severe or sudden change in your symptoms, a fever over 100.4 that does not improve with Tylenol or Ibuprofen, recurrent vomiting, or any other new or worsening symptoms or concerns. Prescriptions: No Action atorvastatin 10 mg tablet 10 mg PO BEDTIME meclizine 12.5 mg tablet 12.5 mg PO QID PRN (Reason: Dizziness) docusate sodium 100 mg capsule 100 mg PO BEDTIME Qty: 90 3RF famotidine 40 mg tablet 40 mg PO DAILY Qty: 30 4RF hydroxychloroquine 200 mg tablet 200 mg PO BID 90 Days Qty: 180 1RF cholecalciferol (vitamin D3) 25 mcg (1,000 unit) tablet 25 mcg PO BID Qty: 60 5RF lidocaine 5 % adhesive patch,medicated 1 patch topical DAILY Qty: 15 0RF Rx Instructions: leave on most painful area for up to 12 hrs clonazepam 0.5 mg tablet 0.5 mg PO TID melatonin 5 mg tablet 5 mg PO BEDTIME multivitamin [Daily Vitamin Formula] Tablet 1 tab PO DAILY diphenhydramine HCl [Banophen] 25 mg tablet 25 mg PO BEDTIME triamcinolone acetonide 0.5 % cream topical citalopram 40 mg tablet 40 mg PO DAILY Interventions: ED Discharge Assessment Last Done: 02/28/25 04:10 Discharge Date/Time: 02/28/25 04:21 Print Language: Armenian
[2025-02-27] MEDS: Lidocaine/Racepinep/Tetracaine 3 ML GEL.PF.APP TOPICAL (23:43)
--- NOTE | 2025-02-28 03:51 | PC.NURSE ---
Pt road tested and walked approx 15 feet x2 with a steady gait, no dizziness, nad
[2025-02-28 04:10] VITALS: BP 120/60; PULSE 66; RESP 14; TEMP 36.8; O2SAT 99
== END 2025-02-28 04:21 | disposition home or self-care (01) ==
PROVIDERS: Emergency Provider Emergency Medicine; PCP Internal Medicine
DX: S01.01XA Laceration without foreign body of scalp, initial encounter (principal); S06.0X0A Concussion without loss of consciousness, initial encounter; R51.9 Headache, unspecified; M54.2 Cervicalgia; F17.210 Nicotine dependence, cigarettes, uncomplicated; Y93.9 Activity, unspecified; W01.10XA Fall on same level from slipping, tripping and stumbling with subsequent striking against unspecified object, initial encounter; Y92.9 Unspecified place or not applicable; Y99.8 Other external cause status; Z51.81 Encounter for therapeutic drug level monitoring; Z79.899 Other long term (current) drug therapy
CPT/HCPCS: 12032; 36415; 70450; 72125; 80053; 80307; 81001; 85025; 85610; 87086; 93005; 99285

== ENCOUNTER → 2025-02-27 20:22 | Outpatient (BNV) | payer OTHER, SELFPAY | PROVIDERS: Emergency Provider Emergency Medicine; PCP Internal Medicine; Visit Provider Internal Medicine Cardiovascular Disease | DX: Z04.3 Encounter for examination and observation following other accident (principal) | CPT/HCPCS: 93010 ==

== ENCOUNTER → 2025-02-27 21:38 | Outpatient (BNV) | payer OTHER, SELFPAY | PROVIDERS: Emergency Provider Emergency Medicine; PCP Internal Medicine; Visit Provider Radiology Vascular & Interventional Radiology | DX: M50.30 Other cervical disc degeneration, unspecified cervical region (principal); S06.5XAA Traumatic subdural hemorrhage with loss of consciousness status unknown, initial encounter; W19.XXXA Unspecified fall, initial encounter | CPT/HCPCS: 70450; 72125 ==

== ENCOUNTER 2025-04-26 08:27 | Outpatient (REF) | payer OTHER, SELFPAY ==
--- NOTE | ~2025-04-26 | XR_ITS ---
EXAMINATION: XR KNEE BILATERAL 3 VIEW CLINICAL INFORMATION: pain COMPARISON: Left knee x-ray September 2021 and right knee x-ray December 2013 TECHNIQUE: AP standing and lateral and sunrise views of the bilateral knees. FINDINGS: Right: Bone alignment is normal. No fracture or dislocation. There is arthritis at the medial femoral tibial and patellofemoral joints with joint space narrowing and small osteophytes. There is slight lateral subluxation of the patella on the sunrise view. There is no joint effusion. Soft tissues are normal. Left: Bone alignment is normal. No fracture or dislocation. There is arthritis at the medial femoral tibial and patellofemoral joints with joint space narrowing and osteophyte formation. There is an osteophyte at the quadriceps tendon insertion to the patella. There is no joint effusion. Soft tissues are unremarkable. XR/XR Knee Cristopher 3V IMPRESSION: Bilateral knee osteoarthritis, left slightly greater than right. Electronically signed by: Cathy Escobedo MD 04/26/2025 10:28 AM CEFERINO
== END 2025-04-26 08:28 | disposition home or self-care (01) ==
LOC: HO.HOSX 08:27
PROVIDERS: Visit Provider Physician Assistant
DX: M17.11 Unilateral primary osteoarthritis, right knee (principal); M25.562 Pain in left knee
CPT/HCPCS: 73562

== ENCOUNTER 2025-04-26 09:51 | Outpatient (AMB) | payer OTHER, SELFPAY ==
--- NOTE | 2025-04-26 10:32 | MHC.OFFVIS ---
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 States her left is worse. Patient explains she has ongoing pain for the last 3 years, mild pain. She has tried injection, last injection was about 1 yr ago and provided good pain relief. She has also tried using a knee brace with also good support. States her knee clicks often, gives out when walking and at times has weakness. Sheis not able to bend her knee with out pain. Denies numbness or tingling in toes. 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 CHAMBERSA/PARVIZ Allergies alendronate sodium Allergy (Verified 04/26/25 10:37) Vomiting sarilumab (From Kevzara) Allergy (Verified 04/26/25 10:37) injection site reaction tocilizumab (From Actemra) Allergy (Verified 04/26/25 10:37) injection site reaction fruits Allergy (Mild, Uncoded 04/26/25 10:37) itchy mouth and throat Medication List - Last Reconciled 04/26/25 by Dana Mendoza PA-C atorvastatin 10 mg PO BEDTIME cholecalciferol (vitamin D3) 25 mcg PO BID citalopram 40 mg PO DAILY clonazepam 0.5 mg PO TID diphenhydramine HCl (Banophen) 25 mg PO BEDTIME docusate sodium 100 mg PO BEDTIME famotidine 40 mg PO DAILY hydroxychloroquine 200 mg PO BID 90 days lidocaine 5% 1 patch topical DAILY meclizine 12.5 mg PO QID PRN melatonin 5 mg PO BEDTIME multivitamin (Daily Vitamin Formula tablet) 1 tab PO DAILY triamcinolone acetonide 0.5% appl topical HPI Comments Details: History of Present Illness The patient is a 79 year old female presenting for evaluation of knee pain. She has a history of arthritis in both knees, confirmed on X-ray, which is located on the medial aspect of the knees and around the patella. The patient reports that the pain is not severe but is exacerbated by activity, particularly walking up and down stairs. She received a knee injection about a year ago which was helpful. Social History - Functional Status: Reports activity limitations due to knee pain, especially with stairs. [facility] Medical History [facility] (current) use of janus kinase inhibitor Osteopenia with high risk of fracture Panic attack Anxiety Fibrocystic breast disease Tension headache Microscopic hematuria History of abnormal Pap smear Denial Osteoarthritis Hyperlipemia Osteopenia Depression Rheumatoid arthritis Surgical History Hx of colonoscopy Family History Mother Rheumatoid arthritis Father CVD (cardiovascular disease) Social History (Updated 04/26/25 @ 10:37 by GABI Zhao) Household Members: Family Housing: Apartment Alcohol intake: never Patient Tobacco Use Status: Current someday Tobacco user Cigarettes Per Day: 2 Years Smoked: 30 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 - Denies having strong pain at rest. Physical Exam Exam Exam: Physical Exam Right knee skin intact, no erythema or joint effusion. Tenderness along the medial joint line. ROM full with crepitus. Negative steinmans. No ligamentous laxity. NVI. Vital Signs: BMI result Body Mass Index 27.5 Assessment & Plan Assessment & Plan (1) Osteoarthritis of right knee: Code(s): M17.11 - Unilateral primary osteoarthritis, right knee Category: Medical Plan Plan The patient's X-rays confirm arthritis , which is consistent with her symptoms of pain during activities like bending and climbing stairs. Given her prior positive response to an injection, this was discussed as an option; however, as the current pain is not severe, the decision was made to defer injection therapy. The plan is to initiate physical therapy, prescribe Celebrex for pain management, and provide a genumed knee brace for support. The patient was advised to call if the pain worsens, at which point an injection can be reconsidered. Consent Patient was informed and verbally consented to the use of an ambient scribe for clinic note documentation during this visit. Orders: Orders XR Knee Cristopher 3V Today M25.561 - Pain in right knee, M25.562 - Pain in left knee PT Evaluation and Treatment Today M17.11 - Unilateral primary osteoarthritis, right knee Medications: New celecoxib (Celebrex) 200 mg PO BID 28 caps 0RF 14 days Coding Level of Care Code New Pt Level 3 (51582) Add On Problem Visit Only Diagnoses Osteoarthritis of right knee M17.11
[2025-04-26 10:33] VITALS: BMI 27.5
--- OUTSIDE RECORDS SUMMARY | 2025-04-26 12:06 | XMS_ITS | Patient Health Record ---
Author Organization [facility] Address [address] [place] [address] Care Team Providers Care Informaticist Name Role Phone Snehal Read Primary Care Provider Unavailab Rey Penn Jr Unavailable Reason For Referral No Information Medications Medication SIG (Take, Route, Frequency, Duration) Notes Start Date End Date Status Calcium + D Active Colyte with Flavor Packs 240 GM Solution Reconstituted As directed Orally Over the specified time.; Duration: 1 day(s) 03/30/2013 Active Zolpidem Tartrate Ac tive LORazepam Active Aspir-81 81mg Active Social History Social History Additional Details Category Social Info Options Details Miscellaneous: Marital status: Occupation: retired Problems Problem Type SNOMED Code ICD Code Onset Dates Problem Status W/U Status Risk Notes Problem Colon cancer screening (356856670) Colon cancer screening (V76.51) Active confirmed Problem Current use of aspirin (V58.66) Active confirmed Plan Of Treatment Future Test Test Name Order Date COLONOSCOPY 03/30/2013 Insurance Providers Payer Name Payer Address Payer Phone Subscriber Number Group Number Insured Name Patient Relationship to Insured Coverage Start Date Coverage End Date MEDICARE OF [place] [address] [place] [id number] [phone] [id number] DIONISIO DALTON Self - patient is the insured MEDICAID OF [facility] [address] [place] [address] [phone] [id number] DIONISIO DALTON Self - patient is the insured Medical (General) History Medical History History ICD Code colonoscopy 07-08-2001 colon polyps osteoporosis benign breast lump Denies SD,DM,CVA,Lung disease,renal dise ase Surgical History Surgery Date(Month/Year) tubal ligation
--- OUTSIDE RECORDS SUMMARY | 2025-04-26 12:06 | XMS_ITS | Clinical Summary ---
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 Phone Unavailable Primary Care Provider [...] Mass Index - - Plan of Treatment Health Maintenance Due Date Last Done Comments Depression Screening 1945 Lipid Panel 1945 SDOH Screening 1945 Alcohol/Substance Use Screening 1959 Hepatitis C Screening 07/15/1965 DTaP/Tdap/Td Vaccines (1 - Tdap) 07/15/1966 RSV Patients and Patients Aged 60 years or older (1 - 1-dose 75+ series) 07/15/2022 COVID-19 Vaccine ( season) 2025 02/25/2022, 04/10/2021, 09/23/2020, Additional history [...] Associated Diagnosis Comments PROPHYLAXIS - ADULT Routine 12/26/2024 1 0:00 AM EDT Generalized gingival recession Dental plaque Periodontal disease Missing teeth, acquired BITEWINGS - 4 RADIOGRAPHIC IMAGES Routine 12/26/2024 10:00 AM EDT Generalized gingival recession Dental plaque Periodontal disease Missing teeth, acquired PERIODIC ORAL EVALUATION - ESTABLISHED PATIENT Routine 12/26/2024 10:00 AM EDT PANORAMIC RADIOGRAPHIC IMAGE Routine 10/14/2023 11:30 AM EDT from Last 3 Months or Most Recently Relevant to Health Maintenance Insurance [facility]
--- OUTSIDE RECORDS SUMMARY | 2025-04-26 12:06 | XMS_ITS | Encounter Summary ---
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 Phone Unavailable Primary Care Provider Unavailabl e Encounter Details Date Type Department Care Team (Latest Contact Info) Description 11/26/2021 Abstract [facility] CONVERSIONS Dental, Provider, DDS Social History Tobacco Use Types Packs/Day Years Used Date Smoking Tobacco: Never Assessed Comments Unknown Sex and Gender Information Value Date Recorded Sex Assigned at Female 03/09/2022 10:15 AM EDT Legal Sex Female 10:15 AM EDT Gender Identity Female 03/09/2022 10:15 AM EDT Sexual Orientation Straight 03/09/2022 10 :15 AM EDT documented as of this encounter Plan of Treatment Not on file documented as of this encounter Visit Diagnoses Not on filedocumented in this encounter
== END 2025-04-26 11:34 | disposition home or self-care (01) ==
LOC: HO.HOS 09:52
PROVIDERS: PCP Internal Medicine; Visit Provider Physician Assistant
DX: M17.11 Unilateral primary osteoarthritis, right knee (principal)
CPT/HCPCS: 99204; G2211

== ENCOUNTER → 2025-04-26 10:07 | Outpatient (BNV) | payer OTHER, SELFPAY | PROVIDERS: Visit Provider Radiology Diagnostic Radiology | DX: M17.0 Bilateral primary osteoarthritis of knee (principal) | CPT/HCPCS: 73562 ==